=== PATIENT | female | born 1980 | race Caucasian/White ===

== ENCOUNTER 2021-05-06 15:24 | Inpatient (IN) | payer SELFPAY ==
[~2021-05-06] VITALS: Ht 167.6 cm; Wt 85.4 kg
[2021-05-06] MEDS ORDERED: SODIUM CHLORIDE 0.9% 1000ML 1,000 ML IV STA (15:36)
[2021-05-06] MEDS ORDERED: CEFTRIAXONE 1 GM VIAL IV SCH (15:45)
[2021-05-06] MEDS: DEXAMETHASONE SOD PHOS 10 MG/1 ML VIAL IV SCH (15:58)
[2021-05-06] MEDS ORDERED: CEFTRIAXONE 1 GM in SODIUM CHLORIDE 0.9% 50ML 50 ML IV ONE (16:00)
[2021-05-06 16:09] LABS: BASOPHILS % 0.1 % (0.0-1.0); HEMATOCRIT 37.8 % (34.2-44.1); HEMOGLOBIN 12.8 g/dL (12.0-16.0); LYMPHOCYTES # (AUTO) 0.5 (1.0-3.2); LYMPHOCYTES % 4.1 % (18.0-39.1); MEAN CORPUSCULAR HEMOGLOBIN 29.2 pg (28-32); MEAN CORPUSCULAR HGB CONC 33.9 g/dL (31-35); MEAN CORPUSCULAR VOLUME 86.3 fL (81-99); MONOCYTES # (AUTO) 0.1 (0.2-0.8); MONOCYTES % 1.1 % (4.4-11.3); NEUTROPHILS # (AUTO) 11.5 (2.1-6.9); PLATELET COUNT 287 x10e3/uL (140-360); RED BLOOD COUNT 4.38 x10e6/uL (3.6-5.1); RED CELL DISTRIBUTION WIDTH 12.3 % (11.7-14.4)
[2021-05-06 16:22] LABS: ALBUMIN 3.1 g/dL (3.5-5.0); ALBUMIN/GLOBULIN RATIO 0.7 (0.8-2.0); ANION GAP 24.5 mmol/L (8-16); CALCIUM 8.1 mg/dL (8.4-10.2); CREATININE, SERUM 1.18 mg/dL (0.57-1.11); MAGNESIUM 1.8 MG/DL (1.3-2.1); POTASSIUM 3.5 mmol/L (3.5-5.1)
[2021-05-06 16:39] LABS: CREATINE KINASE MB 0.6 ng/mL (0-5.0)
[2021-05-06] MEDS ORDERED: ACETAMINOPHEN 325 MG TAB PO ONE (16:45)
[2021-05-06] MEDS ORDERED: ENOXAPARIN SOD INJ 40 MG/0.4 ML SYR SC SCH (17:00)
[2021-05-06] MEDS ORDERED: ZOLPIDEM TARTRATE 5 MG TAB PO PRN (17:00)
[2021-05-06] MEDS ORDERED: SODIUM CHLORIDE 0.9% 1000ML 1,000 ML IV SCH (17:15)
[2021-05-06] MEDS: FAMOTIDINE 20 MG/2 ML VIAL IV SCH (17:25)
[2021-05-06] MEDS ORDERED: NOREPINEPHRINE 8 MG/D5W 250 ML 250 ML IV PRN (17:45)
[2021-05-06 18:00] LABS: BAND NEUTROPHILS % (MANUAL) 2 %; LYMPHOCYTES % (MANUAL) 6 % (19-48); MONOCYTES % (MANUAL) 4 % (3.4-9.0); NEUTROPHILS % (MANUAL) 88 % (40-74); PLATELET ESTIMATE ADEQUATE; RBC MORPHOLOGY COMMENT NORMAL
[2021-05-06 18:01] LABS: PLATELET MORPHOLOGY COMMENT NORMAL
[2021-05-06] MEDS ORDERED: DEXMEDETOMIDINE 200MCG/NS 50ML 50 ML IV SCH (18:15)
[2021-05-06] MEDS ORDERED: DEXMEDETOMIDINE 200MCG/NS 50ML 50 ML IV ONE (18:20)
[2021-05-06 19:00] VITALS: BP 106/57
[2021-05-06] MEDS ORDERED: IPRATROPIUM BROMIDE 0.02% 2.5 ML NEB NEB SCH (19:00)
[2021-05-06] MEDS ORDERED: ALBUTEROL SULF 0.083% NEB SOLN 3 ML NEB NEB SCH (19:00)
[2021-05-06] MEDS ORDERED: MIDAZOLAM HCL 5MG/ML 10ML VIAL 100 ML IV ONE (19:39)
[2021-05-06] MEDS ORDERED: FENTANYL 2000MCG/NS 250 250 ML ONE (19:39)
[2021-05-06 20:00] VITALS: BP 102/65
[2021-05-06] MEDS ORDERED: CISATRACURIUM BESYLATE 100 MG in SODIUM CHLORIDE 0.9% 100 ML 50 ML IV PRN (20:00)
[2021-05-06] MEDS ORDERED: REMDESIVIR 200MG/NS 100ML 200 MG in SODIUM CHLORIDE 0.9% 100 ML 100 ML IV ONE (20:00)
[2021-05-06 20:08] VITALS: BP 102/65
[2021-05-06 20:29] LABS: ABG HCO3 23 mmol/L (22-26); ABG PCO2 48 mmHg (35-45); ABG PH 7.29 (7.35-7.45); ABG PO2 41 mmHg (80-105); ABG TCO2 24
[2021-05-06 21:00] VITALS: BP 97/60
[2021-05-06] MEDS ORDERED: REMDESIVIR 200MG/NS 100ML 200 MG IV ONE (21:56)
[2021-05-06 22:00] VITALS: BP 96/69
[2021-05-06 23:00] VITALS: BP 101/60
[2021-05-06] MEDS: ROCURONIUM BROMIDE 1,250 MG in SODIUM CHLORIDE 0.9% 250ML 125 ML IV SCH (23:00)
[2021-05-07] VITALS (24 sets, daily range): BP systolic 100–122; BP diastolic 45–93
[2021-05-07] MEDS ORDERED: MIDAZOLAM HCL 5MG/ML 10ML VIAL 100 ML IV ONE (05:31)
[2021-05-07 06:17] LABS: HEMATOCRIT 33.1 % (34.2-44.1); HEMOGLOBIN 11.4 g/dL (12.0-16.0); LYMPHOCYTES # (AUTO) 0.3 (1.0-3.2); LYMPHOCYTES % 6.7 % (18.0-39.1); MEAN CORPUSCULAR HEMOGLOBIN 29.7 pg (28-32); MEAN CORPUSCULAR HGB CONC 34.4 g/dL (31-35); MEAN CORPUSCULAR VOLUME 86.2 fL (81-99); MONOCYTES # (AUTO) 0.1 (0.2-0.8); MONOCYTES % 2.3 % (4.4-11.3); NEUTROPHILS # (AUTO) 4.3 (2.1-6.9); NEUTROPHILS % 90.2 % (38.7-80.0); PLATELET COUNT 288 x10e3/uL (140-360); RED BLOOD COUNT 3.84 x10e6/uL (3.6-5.1); RED CELL DISTRIBUTION WIDTH 12.5 % (11.7-14.4)
[2021-05-07 06:41] LABS: ALANINE AMINOTRANSFERASE 39 IU/L (0-55); ALBUMIN 2.5 g/dL (3.5-5.0); ALBUMIN/GLOBULIN RATIO 0.6 (0.8-2.0); ALKALINE PHOSPHATASE 88 IU/L (40-150); ANION GAP 16.4 mmol/L (8-16); BLOOD UREA NITROGEN 14 mg/dL (7-26); BUN/CREATININE RATIO 19 (6-25); CALCIUM 7.6 mg/dL (8.4-10.2); CARBON DIOXIDE 23 mmol/L (22-29); CHLORIDE 98 mmol/L (98-107); CREATININE, SERUM 0.73 mg/dL (0.57-1.11); EST GLOMERULAR FILTRATION RATE > 60 ML/MIN (60-); GLUCOSE 228 mg/dL (74-118); POTASSIUM 3.4 mmol/L (3.5-5.1); SODIUM 134 mmol/L (136-145)
[2021-05-07] MEDS: AZITHROMYCIN 500MG/NS 250 ML 250 ML IV SCH (10:11)
[2021-05-07] MEDS: ENOXAPARIN INJ 80 MG/0.8 ML SYR SC SCH ×2 (10:11→20:50)
[2021-05-07] MEDS: DEXAMETHASONE SOD PHOS 10 MG/1 ML VIAL IV SCH (10:11)
[2021-05-07] MEDS: FAMOTIDINE 20 MG/2 ML VIAL IV SCH ×2 (10:11→19:13)
[2021-05-07] MEDS ORDERED: SODIUM CHLORIDE 0.9% 250ML 250 ML ONE (10:15)
[2021-05-07] MEDS ORDERED: POTASSIUM CHLORIDE 20MEQ/100ML 100 ML IV ONE ×2 (11:00→17:30)
[2021-05-07 12:13] LABS: ABG HCO3 24 mmol/L (22-26); ABG PCO2 37 mmHg (35-45); ABG PH 7.42 (7.35-7.45); ABG PO2 131 mmHg (80-105); ABG TCO2 25
[2021-05-07] MEDS ORDERED: WATER STERILE 10 ML VIAL ONE (13:26)
[2021-05-07] MEDS ORDERED: ETOMIDATE 2 MG/ML 10 ML INJ IV ONE (13:26)
[2021-05-07] MEDS ORDERED: MIDAZOLAM HCL 2 MG/2 ML VIAL ONE (13:26)
[2021-05-07] MEDS ORDERED: SUCCINYLCHOLINE CHLORIDE 20 MG/ML 10ML VIAL ONE (13:26)
[2021-05-07] MEDS ORDERED: VECURONIUM BROMIDE FOR INJ 20 MG VIAL ONE (13:26)
[2021-05-07] MEDS ORDERED: SODIUM CHLORIDE 0.9% 1000ML 1,000 ML ONE (13:52)
[2021-05-07] MEDS ORDERED: MIDAZOLAM HCL 50 MG in SODIUM CHLORIDE 0.9% 100 ML 90 ML IV PRN (15:45)
[2021-05-07] MEDS: FENTANYL 2000MCG/NS 250 250 ML IV SCH (15:47)
[2021-05-07] MEDS ORDERED: CEFTRIAXONE 1 GM VIAL IV SCH (16:00)
[2021-05-07] MEDS: CEFTRIAXONE 1 GM in SODIUM CHLORIDE 0.9% 50ML 50 ML IV SCH (16:18)
[2021-05-07] MEDS: MIDAZOLAM HCL 5MG/ML 10ML VIAL 100 ML IV PRN (16:40)
[2021-05-07 18:09] LABS: ABG PH 7.38 (7.35-7.45)
[2021-05-07 18:10] LABS: ABG HCO3 24 mmol/L (22-26); ABG PCO2 41 mmHg (35-45); ABG PO2 72 mmHg (80-105); ABG TCO2 25
[2021-05-07] MEDS: REMDESIVIR 100MG/NS 100ML 100 MG in SODIUM CHLORIDE 0.9% 100 ML 100 ML IV SCH (20:50)
[2021-05-07] MEDS: ROCURONIUM BROMIDE 1,250 MG in SODIUM CHLORIDE 0.9% 250ML 125 ML IV SCH (20:50)
[2021-05-08] VITALS (25 sets, daily range): BP systolic 77–111; BP diastolic 49–69
[2021-05-08 05:53] LABS: BASOPHILS % 0.2 % (0.0-1.0); HEMATOCRIT 31.7 % (34.2-44.1); HEMOGLOBIN 10.6 g/dL (12.0-16.0); LYMPHOCYTES # (AUTO) 0.5 (1.0-3.2); LYMPHOCYTES % 7.8 % (18.0-39.1); MEAN CORPUSCULAR HEMOGLOBIN 29.9 pg (28-32); MEAN CORPUSCULAR HGB CONC 33.4 g/dL (31-35); MEAN CORPUSCULAR VOLUME 89.5 fL (81-99); MONOCYTES # (AUTO) 0.2 (0.2-0.8); MONOCYTES % 3.6 % (4.4-11.3); NEUTROPHILS # (AUTO) 5.3 (2.1-6.9); NEUTROPHILS % 87.2 % (38.7-80.0); PLATELET COUNT 375 x10e3/uL (140-360); RED BLOOD COUNT 3.54 x10e6/uL (3.6-5.1)
[2021-05-08 06:17] LABS: ALANINE AMINOTRANSFERASE 32 IU/L (0-55); ALBUMIN 2.3 g/dL (3.5-5.0); ALBUMIN/GLOBULIN RATIO 0.6 (0.8-2.0); ALKALINE PHOSPHATASE 73 IU/L (40-150); ANION GAP 13.6 mmol/L (8-16); BLOOD UREA NITROGEN 17 mg/dL (7-26); BUN/CREATININE RATIO 23 (6-25); CALCIUM 7.6 mg/dL (8.4-10.2); CARBON DIOXIDE 24 mmol/L (22-29); CHLORIDE 105 mmol/L (98-107); CREATININE, SERUM 0.75 mg/dL (0.57-1.11); EST GLOMERULAR FILTRATION RATE > 60 ML/MIN (60-); GLUCOSE 205 mg/dL (74-118); POTASSIUM 3.6 mmol/L (3.5-5.1); SODIUM 139 mmol/L (136-145)
[2021-05-08] MEDS: DEXAMETHASONE SOD PHOS 10 MG/1 ML VIAL IV SCH (08:37)
[2021-05-08] MEDS: AZITHROMYCIN 500MG/NS 250 ML 250 ML IV SCH (08:37)
[2021-05-08] MEDS: FAMOTIDINE 20 MG/2 ML VIAL IV SCH ×2 (08:37→15:52)
[2021-05-08] MEDS: ENOXAPARIN INJ 80 MG/0.8 ML SYR SC SCH ×2 (08:37→21:30)
[2021-05-08] MEDS ORDERED: NOREPINEPHRINE 8 MG/D5W 250 ML 250 ML IV SCH (10:15)
[2021-05-08] MEDS: FENTANYL 2000MCG/NS 250 250 ML IV SCH (12:12)
[2021-05-08] MEDS: MIDAZOLAM HCL 5MG/ML 10ML VIAL 100 ML IV PRN (13:40)
[2021-05-08] MEDS: CEFTRIAXONE 1 GM in SODIUM CHLORIDE 0.9% 50ML 50 ML IV SCH (15:52)
[2021-05-08 16:19] LABS: ABG HCO3 25 mmol/L (22-26); ABG PCO2 43 mmHg (35-45); ABG PH 7.37 (7.35-7.45); ABG PO2 71 mmHg (80-105); ABG TCO2 26
[2021-05-08] MEDS: ROCURONIUM BROMIDE 1,250 MG in SODIUM CHLORIDE 0.9% 250ML 125 ML IV SCH (20:45)
[2021-05-08] MEDS: REMDESIVIR 100MG/NS 100ML 100 MG in SODIUM CHLORIDE 0.9% 100 ML 100 ML IV SCH (21:30)
[2021-05-09] VITALS (28 sets, daily range): BP systolic 95–158; BP diastolic 50–90
[2021-05-09] MEDS: MIDAZOLAM HCL 5MG/ML 10ML VIAL 100 ML IV PRN ×2 (00:15→10:38)
[2021-05-09] MEDS ORDERED: HEPARIN SOD/SOD CHLORIDE 1,000 ML IV PRN (02:15)
[2021-05-09] MEDS ORDERED: NOREPINEPHRINE 8 MG/D5W 250 ML 250 ML IV PRN (02:15)
[2021-05-09] MEDS ORDERED: ROCURONIUM BROMIDE 1,250 MG in SODIUM CHLORIDE 0.9% 250ML 125 ML IV PRN (02:15)
[2021-05-09] MEDS ORDERED: HEPARIN SOD/SOD CHLORIDE 1,000 ML ONE (05:27)
[2021-05-09 05:42] LABS: BASOPHILS % 0.2 % (0.0-1.0); HEMATOCRIT 31.6 % (34.2-44.1); HEMOGLOBIN 10.4 g/dL (12.0-16.0); LYMPHOCYTES # (AUTO) 0.4 (1.0-3.2); MEAN CORPUSCULAR HEMOGLOBIN 29.5 pg (28-32); MEAN CORPUSCULAR HGB CONC 32.9 g/dL (31-35); MEAN CORPUSCULAR VOLUME 89.5 fL (81-99); MONOCYTES # (AUTO) 0.2 (0.2-0.8); MONOCYTES % 3.4 % (4.4-11.3); NEUTROPHILS # (AUTO) 5.1 (2.1-6.9); NEUTROPHILS % 87.9 % (38.7-80.0); PLATELET COUNT 465 x10e3/uL (140-360); RED BLOOD COUNT 3.53 x10e6/uL (3.6-5.1); RED CELL DISTRIBUTION WIDTH 13.1 % (11.7-14.4)
[2021-05-09] MEDS: METOCLOPRAMIDE HCL 10 MG/2ML VIAL IV SCH ×4 (06:00→23:25)
[2021-05-09 06:17] LABS: MAGNESIUM 2.4 MG/DL (1.3-2.1); PHOSPHORUS 1.9 MG/DL (2.3-4.7)
[2021-05-09 06:19] LABS: INR 0.96; PROTHROMBIN TIME 13.4 seconds (11.9-14.5)
[2021-05-09 06:20] LABS: PARTIAL THROMBOPLASTIN TIME 27.5 seconds (23.8-35.5)
[2021-05-09 06:27] LABS: ALANINE AMINOTRANSFERASE 32 IU/L (0-55); ALBUMIN 2.1 g/dL (3.5-5.0); ALBUMIN/GLOBULIN RATIO 0.6 (0.8-2.0); ALKALINE PHOSPHATASE 77 IU/L (40-150); ANION GAP 12.6 mmol/L (8-16); BLOOD UREA NITROGEN 20 mg/dL (7-26); BUN/CREATININE RATIO 29 (6-25); CALCIUM 7.7 mg/dL (8.4-10.2); CARBON DIOXIDE 29 mmol/L (22-29); CHLORIDE 106 mmol/L (98-107); CREATININE, SERUM 0.69 mg/dL (0.57-1.11); EST GLOMERULAR FILTRATION RATE > 60 ML/MIN (60-); GLUCOSE 338 mg/dL (74-118); POTASSIUM 3.6 mmol/L (3.5-5.1); SODIUM 144 mmol/L (136-145)
[2021-05-09] MEDS: AZITHROMYCIN 500MG/NS 250 ML 250 ML IV SCH (08:06)
[2021-05-09] MEDS: ENOXAPARIN INJ 80 MG/0.8 ML SYR SC SCH ×2 (08:06→20:48)
[2021-05-09] MEDS: GENTAMICIN SULFATE 0.3% OPTH OINT 3.5GM TUBE OD SCH ×2 (08:06→16:08)
[2021-05-09] MEDS: ZINC SULFATE 220 MG CAP PO SCH (08:06)
[2021-05-09] MEDS: DEXAMETHASONE SOD PHOS 10 MG/1 ML VIAL IV SCH (08:06)
[2021-05-09] MEDS: FAMOTIDINE 20 MG/2 ML VIAL IV SCH ×2 (08:06→16:08)
[2021-05-09] MEDS: ASCORBIC ACID 500 MG TAB PO SCH ×2 (08:06→16:08)
[2021-05-09] MEDS: EYE LUBRICANT OPTH OINT 3.5GM TUBE OP SCH (08:06)
[2021-05-09] MEDS: CHOLECALCIFEROL 400 UNIT TAB PO SCH (08:09)
[2021-05-09 08:20] LABS: ABG HCO3 33 mmol/L (22-26); ABG PCO2 48 mmHg (35-45); ABG PH 7.45 (7.35-7.45); ABG PO2 75 mmHg (80-105); ABG TCO2 35
[2021-05-09] MEDS: CEFTRIAXONE 1 GM in SODIUM CHLORIDE 0.9% 50ML 50 ML IV SCH (15:14)
[2021-05-09] MEDS: REMDESIVIR 100MG/NS 100ML 100 MG in SODIUM CHLORIDE 0.9% 100 ML 100 ML IV SCH (20:48)
[2021-05-09] MEDS: ACETAMINOPHEN 325 MG TAB NG PRN (23:25)
[2021-05-10] VITALS (24 sets, daily range): BP systolic 102–176; BP diastolic 50–98
[2021-05-10 05:07] LABS: BASOPHILS % 0.2 % (0.0-1.0); EOSINOPHILS % 0.3 % (0.0-6.0); HEMOGLOBIN 11.1 g/dL (12.0-16.0); LYMPHOCYTES # (AUTO) 0.6 (1.0-3.2); LYMPHOCYTES % 8.4 % (18.0-39.1); MEAN CORPUSCULAR HEMOGLOBIN 29.9 pg (28-32); MEAN CORPUSCULAR HGB CONC 32.6 g/dL (31-35); MEAN CORPUSCULAR VOLUME 91.6 fL (81-99); MONOCYTES # (AUTO) 0.2 (0.2-0.8); MONOCYTES % 3.7 % (4.4-11.3); NEUTROPHILS # (AUTO) 5.6 (2.1-6.9); NEUTROPHILS % 85.3 % (38.7-80.0); PLATELET COUNT 542 x10e3/uL (140-360); RED BLOOD COUNT 3.71 x10e6/uL (3.6-5.1); RED CELL DISTRIBUTION WIDTH 13.1 % (11.7-14.4)
[2021-05-10] MEDS: METOCLOPRAMIDE HCL 10 MG/2ML VIAL IV SCH ×3 (05:10→17:12)
[2021-05-10] MEDS: ACETAMINOPHEN 325 MG TAB NG PRN (05:25)
[2021-05-10 05:33] LABS: ALANINE AMINOTRANSFERASE 82 IU/L (0-55); ALBUMIN 2.2 g/dL (3.5-5.0); ALBUMIN/GLOBULIN RATIO 0.6 (0.8-2.0); ALKALINE PHOSPHATASE 91 IU/L (40-150); ANION GAP 14.9 mmol/L (8-16); BLOOD UREA NITROGEN 22 mg/dL (7-26); BUN/CREATININE RATIO 33 (6-25); CALCIUM 8.2 mg/dL (8.4-10.2); CARBON DIOXIDE 30 mmol/L (22-29); CHLORIDE 107 mmol/L (98-107); CREATININE, SERUM 0.66 mg/dL (0.57-1.11); EST GLOMERULAR FILTRATION RATE > 60 ML/MIN (60-); GLUCOSE 239 mg/dL (74-118); POTASSIUM 3.9 mmol/L (3.5-5.1); SODIUM 148 mmol/L (136-145)
[2021-05-10] MEDS: FAMOTIDINE 20 MG/2 ML VIAL IV SCH ×2 (08:14→17:12)
[2021-05-10] MEDS: CHOLECALCIFEROL 400 UNIT TAB PO SCH (08:14)
[2021-05-10] MEDS: ASCORBIC ACID 500 MG TAB PO SCH ×2 (08:14→17:12)
[2021-05-10] MEDS: DEXAMETHASONE SOD PHOS 10 MG/1 ML VIAL IV SCH (08:14)
[2021-05-10] MEDS: ZINC SULFATE 220 MG CAP PO SCH (08:14)
[2021-05-10] MEDS: ENOXAPARIN INJ 80 MG/0.8 ML SYR SC SCH ×2 (08:14→21:00)
[2021-05-10] MEDS ORDERED: SODIUM CHLORIDE 0.9% 500ML 500 ML ONE (08:30)
[2021-05-10] MEDS ORDERED: FUROSEMIDE INJ 10 MG/ML 4 ML VIAL IV ONE (08:35)
[2021-05-10 08:45] LABS: ABG HCO3 34 mmol/L (22-26); ABG PCO2 49 mmHg (35-45); ABG PH 7.45 (7.35-7.45); ABG PO2 68 mmHg (80-105); ABG TCO2 36
[2021-05-10] MEDS ORDERED: DEXTROSE 50% SYRINGE 50 ML IV PRN (08:45)
[2021-05-10] MEDS: GENTAMICIN SULFATE 0.3% OPTH OINT 3.5GM TUBE OD SCH ×2 (09:10→17:12)
[2021-05-10] MEDS: EYE LUBRICANT OPTH OINT 3.5GM TUBE OP SCH (09:10)
[2021-05-10] MEDS ORDERED: SODIUM CHLORIDE 0.45% 500 ML IV ONE (09:30)
[2021-05-10] MEDS ORDERED: ACETAMINOPHEN 1000 MG/100 ML IV ONE (09:35)
[2021-05-10] MEDS: PIPERACILLIN/TAZOBACTAM 3.375 GM in SODIUM CHLORIDE 0.9% 50ML 50 ML IV SCH ×3 (09:55→21:00)
[2021-05-10] MEDS: MIDAZOLAM HCL 5MG/ML 10ML VIAL 100 ML IV PRN ×2 (12:13→17:13)
[2021-05-10] MEDS: INSULIN REGULAR, HUMAN 100 UNIT/1 ML SQ SCH ×3 (12:15→22:25)
[2021-05-10] MEDS ORDERED: VECURONIUM BROMIDE FOR INJ 20 MG VIAL IV STA (14:44)
[2021-05-10] MEDS: ROCURONIUM BROMIDE 1,250 MG in SODIUM CHLORIDE 0.9% 250ML 125 ML IV SCH (15:29)
[2021-05-10] MEDS: FENTANYL 2000MCG/NS 250 250 ML IV PRN (15:30)
[2021-05-10 16:29] LABS: ABG HCO3 32 mmol/L (22-26); ABG PCO2 53 mmHg (35-45); ABG PH 7.38 (7.35-7.45); ABG PO2 70 mmHg (80-105); ABG TCO2 33
[2021-05-10] MEDS: REMDESIVIR 100MG/NS 100ML 100 MG in SODIUM CHLORIDE 0.9% 100 ML 100 ML IV SCH (21:00)
[2021-05-11] VITALS (25 sets, daily range): BP systolic 97–145; BP diastolic 57–99
[2021-05-11] MEDS: METOCLOPRAMIDE HCL 10 MG/2ML VIAL IV SCH ×5 (00:46→23:15)
[2021-05-11] MEDS: PIPERACILLIN/TAZOBACTAM 3.375 GM in SODIUM CHLORIDE 0.9% 50ML 50 ML IV SCH ×4 (03:00→20:46)
[2021-05-11 05:58] LABS: BASOPHILS % 0.3 % (0.0-1.0); EOSINOPHILS # (AUTO) 0.1 (0.0-0.4); EOSINOPHILS % 1.4 % (0.0-6.0); HEMATOCRIT 32.3 % (34.2-44.1); HEMOGLOBIN 10.3 g/dL (12.0-16.0); LYMPHOCYTES # (AUTO) 0.6 (1.0-3.2); MEAN CORPUSCULAR HEMOGLOBIN 30.6 pg (28-32); MEAN CORPUSCULAR HGB CONC 31.9 g/dL (31-35); MEAN CORPUSCULAR VOLUME 95.8 fL (81-99); MONOCYTES # (AUTO) 0.2 (0.2-0.8); MONOCYTES % 2.9 % (4.4-11.3); NEUTROPHILS # (AUTO) 5.4 (2.1-6.9); NEUTROPHILS % 82.1 % (38.7-80.0); PLATELET COUNT 464 x10e3/uL (140-360); RED BLOOD COUNT 3.37 x10e6/uL (3.6-5.1); RED CELL DISTRIBUTION WIDTH 13.4 % (11.7-14.4)
[2021-05-11 06:07] LABS: INR 1.08; PROTHROMBIN TIME 14.6 seconds (11.9-14.5)
[2021-05-11 06:08] LABS: PARTIAL THROMBOPLASTIN TIME 30.4 seconds (23.8-35.5)
[2021-05-11 06:18] LABS: ALANINE AMINOTRANSFERASE 80 IU/L (0-55); ALBUMIN/GLOBULIN RATIO 0.6 (0.8-2.0); ALKALINE PHOSPHATASE 82 IU/L (40-150); ANION GAP 11.9 mmol/L (8-16); BLOOD UREA NITROGEN 18 mg/dL (7-26); BUN/CREATININE RATIO 30 (6-25); CALCIUM 8.3 mg/dL (8.4-10.2); CARBON DIOXIDE 32 mmol/L (22-29); CHLORIDE 108 mmol/L (98-107); CREATININE, SERUM 0.61 mg/dL (0.57-1.11); EST GLOMERULAR FILTRATION RATE > 60 ML/MIN (60-); GLUCOSE 233 mg/dL (74-118); MAGNESIUM 2.1 MG/DL (1.3-2.1); PHOSPHORUS 2.4 MG/DL (2.3-4.7); POTASSIUM 3.9 mmol/L (3.5-5.1); SODIUM 148 mmol/L (136-145)
[2021-05-11] MEDS: MIDAZOLAM HCL 5MG/ML 10ML VIAL 100 ML IV PRN ×3 (06:19→20:47)
[2021-05-11 07:17] LABS: ABG HCO3 33 mmol/L (22-26); ABG PCO2 55 mmHg (35-45); ABG PH 7.38 (7.35-7.45); ABG PO2 80 mmHg (80-105); ABG TCO2 35
[2021-05-11] MEDS: FAMOTIDINE 20 MG/2 ML VIAL IV SCH ×2 (08:10→16:54)
[2021-05-11] MEDS: DEXAMETHASONE SOD PHOS 10 MG/1 ML VIAL IV SCH (08:10)
[2021-05-11] MEDS: CHOLECALCIFEROL 400 UNIT TAB PO SCH (08:11)
[2021-05-11] MEDS: GENTAMICIN SULFATE 0.3% OPTH OINT 3.5GM TUBE OD SCH ×2 (08:11→16:54)
[2021-05-11] MEDS: ZINC SULFATE 220 MG CAP PO SCH (08:11)
[2021-05-11] MEDS: ASCORBIC ACID 500 MG TAB PO SCH ×2 (08:11→16:54)
[2021-05-11] MEDS: EYE LUBRICANT OPTH OINT 3.5GM TUBE OP SCH (08:11)
[2021-05-11] MEDS: ENOXAPARIN INJ 80 MG/0.8 ML SYR SC SCH ×2 (08:11→20:46)
[2021-05-11] MEDS: ROCURONIUM BROMIDE 1,250 MG in SODIUM CHLORIDE 0.9% 250ML 125 ML IV SCH (08:21)
[2021-05-11] MEDS: FENTANYL 2000MCG/NS 250 250 ML IV PRN ×2 (08:22→22:59)
[2021-05-11] MEDS ORDERED: ACETAMINOPHEN 1000 MG/100 ML IV STA (08:23)
[2021-05-11] MEDS: ACETAMINOPHEN 325 MG TAB NG PRN (08:25)
[2021-05-11] MEDS: INSULIN REGULAR, HUMAN 100 UNIT/1 ML SQ SCH ×4 (08:56→20:48)
[2021-05-11] MEDS ORDERED: TOCILIZUMAB IV ONE (10:00)
[2021-05-11] MEDS ORDERED: SODIUM CHLORIDE 0.9% IV ONE (10:00)
[2021-05-11 15:37] LABS: ABG HCO3 32 mmol/L (22-26); ABG PCO2 53 mmHg (35-45); ABG PO2 67 mmHg (80-105); ABG TCO2 34
[2021-05-11] MEDS ORDERED: INSULIN GLARGINE 100 UNITS/ML VIAL SQ SCH (21:00)
[2021-05-12] VITALS (26 sets, daily range): BP systolic 95–171; BP diastolic 56–96
[2021-05-12] MEDS: PIPERACILLIN/TAZOBACTAM 3.375 GM in SODIUM CHLORIDE 0.9% 50ML 50 ML IV SCH ×4 (02:37→22:00)
[2021-05-12 04:34] LABS: BASOPHILS % 0.2 % (0.0-1.0); EOSINOPHILS # (AUTO) 0.1 (0.0-0.4); EOSINOPHILS % 1.8 % (0.0-6.0); HEMATOCRIT 33.8 % (34.2-44.1); HEMOGLOBIN 10.6 g/dL (12.0-16.0); LYMPHOCYTES # (AUTO) 0.5 (1.0-3.2); LYMPHOCYTES % 9.1 % (18.0-39.1); MEAN CORPUSCULAR HEMOGLOBIN 29.4 pg (28-32); MEAN CORPUSCULAR HGB CONC 31.4 g/dL (31-35); MEAN CORPUSCULAR VOLUME 93.6 fL (81-99); MONOCYTES # (AUTO) 0.2 (0.2-0.8); MONOCYTES % 3.8 % (4.4-11.3); NEUTROPHILS # (AUTO) 4.3 (2.1-6.9); NEUTROPHILS % 78.5 % (38.7-80.0); PLATELET COUNT 527 x10e3/uL (140-360); RED BLOOD COUNT 3.61 x10e6/uL (3.6-5.1); RED CELL DISTRIBUTION WIDTH 12.7 % (11.7-14.4)
[2021-05-12 04:55] LABS: ALANINE AMINOTRANSFERASE 61 IU/L (0-55); ALBUMIN 1.9 g/dL (3.5-5.0); ALBUMIN/GLOBULIN RATIO 0.5 (0.8-2.0); ALKALINE PHOSPHATASE 75 IU/L (40-150); ANION GAP 14.4 mmol/L (8-16); BLOOD UREA NITROGEN 19 mg/dL (7-26); BUN/CREATININE RATIO 30 (6-25); CALCIUM 8.2 mg/dL (8.4-10.2); CARBON DIOXIDE 30 mmol/L (22-29); CHLORIDE 108 mmol/L (98-107); CREATININE, SERUM 0.64 mg/dL (0.57-1.11); EST GLOMERULAR FILTRATION RATE > 60 ML/MIN (60-); GLUCOSE 256 mg/dL (74-118); POTASSIUM 4.4 mmol/L (3.5-5.1); SODIUM 148 mmol/L (136-145)
[2021-05-12] MEDS: METOCLOPRAMIDE HCL 10 MG/2ML VIAL IV SCH ×3 (05:42→17:08)
[2021-05-12 06:56] LABS: EOSINOPHILS % (MANUAL) 4 % (0-7); LYMPHOCYTES % (MANUAL) 6 % (19-48); METAMYELOCYTES % (MANUAL) 2 % (0-0); MONOCYTES % (MANUAL) 1 % (3.4-9.0); MYELOCYTES % (MANUAL) 1 % (0-0); NEUTROPHILS % (MANUAL) 82 % (40-74)
[2021-05-12] MEDS: ASCORBIC ACID 500 MG TAB PO SCH ×2 (08:10→17:08)
[2021-05-12] MEDS: FAMOTIDINE 20 MG/2 ML VIAL IV SCH ×2 (08:10→17:08)
[2021-05-12] MEDS: EYE LUBRICANT OPTH OINT 3.5GM TUBE OP SCH (08:10)
[2021-05-12] MEDS: CHOLECALCIFEROL 400 UNIT TAB PO SCH (08:10)
[2021-05-12] MEDS: GENTAMICIN SULFATE 0.3% OPTH OINT 3.5GM TUBE OD SCH ×2 (08:10→17:08)
[2021-05-12] MEDS: DEXAMETHASONE SOD PHOS 10 MG/1 ML VIAL IV SCH (08:10)
[2021-05-12] MEDS: ZINC SULFATE 220 MG CAP PO SCH (08:10)
[2021-05-12] MEDS: ENOXAPARIN INJ 80 MG/0.8 ML SYR SC SCH ×2 (08:10→22:00)
[2021-05-12] MEDS: INSULIN REGULAR, HUMAN 100 UNIT/1 ML SQ SCH ×4 (08:16→22:00)
[2021-05-12 09:37] LABS: ABG HCO3 34 mmol/L (22-26); ABG PCO2 55 mmHg (35-45); ABG PO2 62 mmHg (80-105); ABG TCO2 36
[2021-05-12] MEDS: FENTANYL 2000MCG/NS 250 250 ML IV PRN ×2 (10:32→23:15)
[2021-05-12] MEDS: ACETAMINOPHEN 325 MG TAB NG PRN ×2 (10:50→17:09)
[2021-05-12] MEDS: ROCURONIUM BROMIDE 1,250 MG in SODIUM CHLORIDE 0.9% 250ML 125 ML IV SCH (15:15)
[2021-05-12] MEDS: MIDAZOLAM HCL 5MG/ML 10ML VIAL 100 ML IV PRN ×2 (16:08→23:16)
[2021-05-12] MEDS ORDERED: INSULIN GLARGINE 100 UNITS/ML VIAL SQ SCH (21:00)
[2021-05-13] VITALS (26 sets, daily range): BP systolic 91–144; BP diastolic 54–80
[2021-05-13] MEDS: METOCLOPRAMIDE HCL 10 MG/2ML VIAL IV SCH ×5 (00:26→23:52)
[2021-05-13] MEDS: PIPERACILLIN/TAZOBACTAM 3.375 GM in SODIUM CHLORIDE 0.9% 50ML 50 ML IV SCH ×4 (03:40→21:15)
[2021-05-13] MEDS: MIDAZOLAM HCL 5MG/ML 10ML VIAL 100 ML IV PRN ×4 (05:30→21:15)
[2021-05-13 06:10] LABS: BASOPHILS % 0.2 % (0.0-1.0); EOSINOPHILS # (AUTO) 0.3 (0.0-0.4); EOSINOPHILS % 5.7 % (0.0-6.0); HEMATOCRIT 35.6 % (34.2-44.1); LYMPHOCYTES # (AUTO) 0.6 (1.0-3.2); LYMPHOCYTES % 10.8 % (18.0-39.1); MEAN CORPUSCULAR HEMOGLOBIN 29.1 pg (28-32); MEAN CORPUSCULAR HGB CONC 30.9 g/dL (31-35); MEAN CORPUSCULAR VOLUME 94.2 fL (81-99); MONOCYTES # (AUTO) 0.3 (0.2-0.8); MONOCYTES % 4.3 % (4.4-11.3); NEUTROPHILS # (AUTO) 4.2 (2.1-6.9); NEUTROPHILS % 72.1 % (38.7-80.0); PLATELET COUNT 633 x10e3/uL (140-360); RED BLOOD COUNT 3.78 x10e6/uL (3.6-5.1); RED CELL DISTRIBUTION WIDTH 12.6 % (11.7-14.4)
[2021-05-13] MEDS: ACETAMINOPHEN 325 MG TAB NG PRN (06:10)
[2021-05-13 06:19] LABS: INR 0.96; PROTHROMBIN TIME 13.4 seconds (11.9-14.5)
[2021-05-13 06:20] LABS: PARTIAL THROMBOPLASTIN TIME 29.6 seconds (23.8-35.5)
[2021-05-13] MEDS: INSULIN REGULAR, HUMAN 100 UNIT/1 ML SQ SCH ×3 (06:32→18:21)
[2021-05-13 06:43] LABS: ALANINE AMINOTRANSFERASE 65 IU/L (0-55); ALBUMIN 2.2 g/dL (3.5-5.0); ALBUMIN/GLOBULIN RATIO 0.6 (0.8-2.0); ALKALINE PHOSPHATASE 80 IU/L (40-150); ANION GAP 11.5 mmol/L (8-16); BLOOD UREA NITROGEN 20 mg/dL (7-26); BUN/CREATININE RATIO 32 (6-25); CALCIUM 8.2 mg/dL (8.4-10.2); CARBON DIOXIDE 32 mmol/L (22-29); CHLORIDE 105 mmol/L (98-107); CREATININE, SERUM 0.62 mg/dL (0.57-1.11); EST GLOMERULAR FILTRATION RATE > 60 ML/MIN (60-); GLUCOSE 242 mg/dL (74-118); MAGNESIUM 2.2 MG/DL (1.3-2.1); PHOSPHORUS 3.4 MG/DL (2.3-4.7); POTASSIUM 4.5 mmol/L (3.5-5.1); SODIUM 144 mmol/L (136-145)
[2021-05-13] MEDS: ROCURONIUM BROMIDE 1,250 MG in SODIUM CHLORIDE 0.9% 250ML 125 ML IV SCH (08:09)
[2021-05-13] MEDS: ASCORBIC ACID 500 MG TAB PO SCH ×2 (08:37→16:17)
[2021-05-13] MEDS: GENTAMICIN SULFATE 0.3% OPTH OINT 3.5GM TUBE OD SCH ×2 (08:37→16:17)
[2021-05-13] MEDS: FAMOTIDINE 20 MG/2 ML VIAL IV SCH ×2 (08:37→16:17)
[2021-05-13] MEDS: EYE LUBRICANT OPTH OINT 3.5GM TUBE OP SCH (08:37)
[2021-05-13] MEDS: ZINC SULFATE 220 MG CAP PO SCH (08:37)
[2021-05-13] MEDS: CHOLECALCIFEROL 400 UNIT TAB PO SCH (08:37)
[2021-05-13] MEDS: ENOXAPARIN INJ 80 MG/0.8 ML SYR SC SCH ×2 (08:37→22:15)
[2021-05-13 08:54] LABS: ABG PCO2 65 mmHg (35-45); ABG PH 7.35 (7.35-7.45)
[2021-05-13 08:55] LABS: ABG HCO3 36 mmol/L (22-26); ABG PO2 74 mmHg (80-105); ABG TCO2 38
[2021-05-13] MEDS: FUROSEMIDE INJ 10 MG/ML 4 ML VIAL IV SCH ×2 (10:23→21:15)
[2021-05-13] MEDS ORDERED: ACETAZOLAMIDE 500 MG CAP PO SCH (11:00)
[2021-05-13 12:51] LABS: BAND NEUTROPHILS % (MANUAL) 4 %; EOSINOPHILS % (MANUAL) 4 % (0-7); LYMPHOCYTES % (MANUAL) 8 % (19-48); MONOCYTES % (MANUAL) 3 % (3.4-9.0); NEUTROPHILS % (MANUAL) 81 % (40-74)
[2021-05-13] MEDS: FENTANYL 2000MCG/NS 250 250 ML IV PRN ×2 (13:59→21:30)
[2021-05-13 16:22] LABS: ABG HCO3 36 mmol/L (22-26); ABG PCO2 67 mmHg (35-45); ABG PH 7.34 (7.35-7.45); ABG PO2 67 mmHg (80-105); ABG TCO2 38
[2021-05-13] MEDS ORDERED: ACETAZOLAMIDE 250 MG TAB ONE (20:49)
[2021-05-13] MEDS: INSULIN GLARGINE 100 UNITS/ML VIAL SQ SCH (21:15)
[2021-05-13] MEDS: ACETAZOLAMIDE 250 MG TAB PO SCH (22:00)
[2021-05-14] VITALS (27 sets, daily range): BP systolic 98–171; BP diastolic 60–88
[2021-05-14] MEDS: INSULIN REGULAR, HUMAN 100 UNIT/1 ML SQ SCH ×5 (00:35→23:59)
[2021-05-14] MEDS: MIDAZOLAM HCL 5MG/ML 10ML VIAL 100 ML IV PRN ×5 (02:18→22:50)
[2021-05-14] MEDS: PIPERACILLIN/TAZOBACTAM 3.375 GM in SODIUM CHLORIDE 0.9% 50ML 50 ML IV SCH ×4 (03:35→22:00)
[2021-05-14] MEDS: ACETAMINOPHEN 325 MG TAB NG PRN ×3 (03:57→20:26)
[2021-05-14] MEDS: FENTANYL 2000MCG/NS 250 250 ML IV PRN ×3 (04:28→17:48)
[2021-05-14] MEDS: METOCLOPRAMIDE HCL 10 MG/2ML VIAL IV SCH ×4 (05:40→23:59)
[2021-05-14 06:19] LABS: ABG PH 7.27 (7.35-7.45)
[2021-05-14 06:20] LABS: ABG HCO3 34 mmol/L (22-26); ABG PCO2 74 mmHg (35-45); ABG PO2 63 mmHg (80-105); ABG TCO2 36
[2021-05-14 06:35] LABS: BASOPHILS # (AUTO) 0.1 (0.0-0.1); BASOPHILS % 0.7 % (0.0-1.0); EOSINOPHILS # (AUTO) 0.6 (0.0-0.4); EOSINOPHILS % 6.8 % (0.0-6.0); HEMATOCRIT 39.3 % (34.2-44.1); LYMPHOCYTES # (AUTO) 1.3 (1.0-3.2); LYMPHOCYTES % 15.1 % (18.0-39.1); MEAN CORPUSCULAR HEMOGLOBIN 29.3 pg (28-32); MEAN CORPUSCULAR HGB CONC 30.5 g/dL (31-35); MEAN CORPUSCULAR VOLUME 95.9 fL (81-99); MONOCYTES # (AUTO) 0.3 (0.2-0.8); MONOCYTES % 3.8 % (4.4-11.3); NEUTROPHILS # (AUTO) 5.9 (2.1-6.9); NEUTROPHILS % 68.3 % (38.7-80.0); PLATELET COUNT 687 x10e3/uL (140-360); RED CELL DISTRIBUTION WIDTH 12.6 % (11.7-14.4)
[2021-05-14 07:05] LABS: ALANINE AMINOTRANSFERASE 105 IU/L (0-55); ALBUMIN 2.5 g/dL (3.5-5.0); ALBUMIN/GLOBULIN RATIO 0.7 (0.8-2.0); ALKALINE PHOSPHATASE 89 IU/L (40-150); ANION GAP 14.8 mmol/L (8-16); BLOOD UREA NITROGEN 21 mg/dL (7-26); BUN/CREATININE RATIO 32 (6-25); CALCIUM 8.3 mg/dL (8.4-10.2); CARBON DIOXIDE 32 mmol/L (22-29); CHLORIDE 101 mmol/L (98-107); CREATININE, SERUM 0.66 mg/dL (0.57-1.11); EST GLOMERULAR FILTRATION RATE > 60 ML/MIN (60-); GLUCOSE 164 mg/dL (74-118); POTASSIUM 3.8 mmol/L (3.5-5.1); SODIUM 144 mmol/L (136-145)
[2021-05-14] MEDS: FAMOTIDINE 20 MG/2 ML VIAL IV SCH ×2 (08:28→17:47)
[2021-05-14] MEDS: FUROSEMIDE INJ 10 MG/ML 4 ML VIAL IV SCH (08:28)
[2021-05-14] MEDS: EYE LUBRICANT OPTH OINT 3.5GM TUBE OP SCH (08:29)
[2021-05-14] MEDS: CHOLECALCIFEROL 400 UNIT TAB PO SCH (08:29)
[2021-05-14] MEDS: ASCORBIC ACID 500 MG TAB PO SCH ×2 (08:29→17:48)
[2021-05-14] MEDS: GENTAMICIN SULFATE 0.3% OPTH OINT 3.5GM TUBE OD SCH ×2 (08:29→17:47)
[2021-05-14] MEDS: ENOXAPARIN INJ 80 MG/0.8 ML SYR SC SCH ×2 (08:29→22:00)
[2021-05-14] MEDS: ACETAZOLAMIDE 250 MG TAB PO SCH (08:29)
[2021-05-14] MEDS: ZINC SULFATE 220 MG CAP PO SCH (08:29)
[2021-05-14 09:21] LABS: BAND NEUTROPHILS % (MANUAL) 5 %; EOSINOPHILS % (MANUAL) 5 % (0-7); LYMPHOCYTES % (MANUAL) 14 % (19-48); MONOCYTES % (MANUAL) 2 % (3.4-9.0); NEUTROPHILS % (MANUAL) 74 % (40-74)
[2021-05-14] MEDS: ROCURONIUM BROMIDE 1,250 MG in SODIUM CHLORIDE 0.9% 250ML 125 ML IV SCH (10:28)
[2021-05-14] MEDS ORDERED: BISACODYL 10 MG SUPP PR NR (15:15)
[2021-05-14 15:38] LABS: ABG HCO3 34 mmol/L (22-26); ABG PCO2 62 mmHg (35-45); ABG PH 7.34 (7.35-7.45); ABG PO2 75 mmHg (80-105); ABG TCO2 36
[2021-05-14] MEDS: INSULIN GLARGINE 100 UNITS/ML VIAL SQ SCH (21:00)
[2021-05-15] VITALS (25 sets, daily range): BP systolic 92–194; BP diastolic 58–97
[2021-05-15] MEDS: FENTANYL 2000MCG/NS 250 250 ML IV PRN ×3 (01:57→15:49)
[2021-05-15] MEDS: PIPERACILLIN/TAZOBACTAM 3.375 GM in SODIUM CHLORIDE 0.9% 50ML 50 ML IV SCH ×2 (03:55→08:35)
[2021-05-15] MEDS: MIDAZOLAM HCL 5MG/ML 10ML VIAL 100 ML IV PRN ×3 (03:55→14:49)
[2021-05-15] MEDS: METOCLOPRAMIDE HCL 10 MG/2ML VIAL IV SCH ×3 (05:13→17:06)
[2021-05-15] MEDS: ACETAMINOPHEN 325 MG TAB NG PRN (05:13)
[2021-05-15 05:22] LABS: BASOPHILS # (AUTO) 0.1 (0.0-0.1); BASOPHILS % 0.6 % (0.0-1.0); EOSINOPHILS # (AUTO) 0.4 (0.0-0.4); EOSINOPHILS % 3.8 % (0.0-6.0); HEMATOCRIT 34.4 % (34.2-44.1); HEMOGLOBIN 10.9 g/dL (12.0-16.0); LYMPHOCYTES # (AUTO) 1.4 (1.0-3.2); LYMPHOCYTES % 13.3 % (18.0-39.1); MEAN CORPUSCULAR HEMOGLOBIN 29.7 pg (28-32); MEAN CORPUSCULAR HGB CONC 31.7 g/dL (31-35); MEAN CORPUSCULAR VOLUME 93.7 fL (81-99); MONOCYTES # (AUTO) 0.3 (0.2-0.8); NEUTROPHILS # (AUTO) 8.3 (2.1-6.9); NEUTROPHILS % 76.1 % (38.7-80.0); PLATELET COUNT 537 x10e3/uL (140-360); RED BLOOD COUNT 3.67 x10e6/uL (3.6-5.1); RED CELL DISTRIBUTION WIDTH 12.5 % (11.7-14.4)
[2021-05-15 05:48] LABS: INR 1.02; PARTIAL THROMBOPLASTIN TIME 29.1 seconds (23.8-35.5)
[2021-05-15 05:58] LABS: ALANINE AMINOTRANSFERASE 105 IU/L (0-55); ALBUMIN 2.4 g/dL (3.5-5.0); ALBUMIN/GLOBULIN RATIO 0.7 (0.8-2.0); ALKALINE PHOSPHATASE 82 IU/L (40-150); ANION GAP 11.9 mmol/L (8-16); BLOOD UREA NITROGEN 18 mg/dL (7-26); BUN/CREATININE RATIO 30 (6-25); CARBON DIOXIDE 29 mmol/L (22-29); CHLORIDE 104 mmol/L (98-107); CREATININE, SERUM 0.61 mg/dL (0.57-1.11); EST GLOMERULAR FILTRATION RATE > 60 ML/MIN (60-); GLUCOSE 119 mg/dL (74-118); MAGNESIUM 2.1 MG/DL (1.3-2.1); PHOSPHORUS 2.9 MG/DL (2.3-4.7); POTASSIUM 3.9 mmol/L (3.5-5.1); SODIUM 141 mmol/L (136-145)
[2021-05-15] MEDS: INSULIN REGULAR, HUMAN 100 UNIT/1 ML SQ SCH ×3 (06:00→18:04)
[2021-05-15 07:44] LABS: ABG HCO3 31 mmol/L (22-26); ABG PCO2 58 mmHg (35-45); ABG PH 7.33 (7.35-7.45); ABG PO2 118 mmHg (80-105); ABG TCO2 32
[2021-05-15] MEDS: ROCURONIUM BROMIDE 1,250 MG in SODIUM CHLORIDE 0.9% 250ML 125 ML IV SCH (08:28)
[2021-05-15] MEDS: FAMOTIDINE 20 MG/2 ML VIAL IV SCH ×2 (08:35→16:42)
[2021-05-15] MEDS: GENTAMICIN SULFATE 0.3% OPTH OINT 3.5GM TUBE OD SCH ×2 (08:36→16:42)
[2021-05-15] MEDS: CHOLECALCIFEROL 400 UNIT TAB PO SCH (08:36)
[2021-05-15] MEDS: EYE LUBRICANT OPTH OINT 3.5GM TUBE OP SCH (08:36)
[2021-05-15] MEDS: ZINC SULFATE 220 MG CAP PO SCH (08:36)
[2021-05-15] MEDS: ASCORBIC ACID 500 MG TAB PO SCH ×2 (08:36→16:42)
[2021-05-15] MEDS: ENOXAPARIN INJ 80 MG/0.8 ML SYR SC SCH ×2 (08:36→21:39)
[2021-05-15 09:12] LABS: BAND NEUTROPHILS % (MANUAL) 2 %; EOSINOPHILS % (MANUAL) 2 % (0-7); LYMPHOCYTES % (MANUAL) 10 % (19-48); MONOCYTES % (MANUAL) 1 % (3.4-9.0); NEUTROPHILS % (MANUAL) 83 % (40-74)
[2021-05-15 09:13] LABS: PLATELET ESTIMATE MODERATELY INCREASED; PLATELET MORPHOLOGY COMMENT FEW LARGE; RBC MORPHOLOGY COMMENT NORMAL
[2021-05-15] MEDS ORDERED: SODIUM CHLORIDE 0.9% 500ML 500 ML ONE (14:41)
[2021-05-15 16:01] LABS: ABG PCO2 53 mmHg (35-45); ABG PH 7.36 (7.35-7.45)
[2021-05-15 16:02] LABS: ABG HCO3 29 mmol/L (22-26); ABG PO2 112 mmHg (80-105); ABG TCO2 31
[2021-05-15] MEDS: INSULIN GLARGINE 100 UNITS/ML VIAL SQ SCH (21:00)
[2021-05-15] MEDS: ACETAZOLAMIDE 250 MG TAB PO SCH (21:39)
[2021-05-15] MEDS: PROPOFOL IV EMULSION 10MG/ML 100 ML IV SCH (22:19)
[2021-05-16] VITALS (25 sets, daily range): BP systolic 105–155; BP diastolic 62–88
[2021-05-16] MEDS: METOCLOPRAMIDE HCL 10 MG/2ML VIAL IV SCH ×5 (00:40→23:20)
[2021-05-16] MEDS: INSULIN REGULAR, HUMAN 100 UNIT/1 ML SQ SCH ×5 (00:40→23:20)
[2021-05-16] MEDS: MIDAZOLAM HCL 5MG/ML 10ML VIAL 100 ML IV PRN ×4 (00:41→20:22)
[2021-05-16] MEDS: FENTANYL 2000MCG/NS 250 250 ML IV PRN ×2 (04:38→18:08)
[2021-05-16] MEDS: ROCURONIUM BROMIDE 1,250 MG in SODIUM CHLORIDE 0.9% 250ML 125 ML IV SCH (04:39)
[2021-05-16] MEDS: PROPOFOL IV EMULSION 10MG/ML 100 ML IV SCH (05:25)
[2021-05-16 06:13] LABS: BASOPHILS # (AUTO) 0.1 (0.0-0.1); BASOPHILS % 0.4 % (0.0-1.0); EOSINOPHILS # (AUTO) 0.4 (0.0-0.4); EOSINOPHILS % 2.3 % (0.0-6.0); HEMATOCRIT 35.5 % (34.2-44.1); LYMPHOCYTES # (AUTO) 1.3 (1.0-3.2); LYMPHOCYTES % 8.3 % (18.0-39.1); MEAN CORPUSCULAR HEMOGLOBIN 29.3 pg (28-32); MEAN CORPUSCULAR VOLUME 94.7 fL (81-99); MONOCYTES # (AUTO) 0.3 (0.2-0.8); NEUTROPHILS # (AUTO) 12.7 (2.1-6.9); NEUTROPHILS % 82.6 % (38.7-80.0); PLATELET COUNT 520 x10e3/uL (140-360); RED BLOOD COUNT 3.75 x10e6/uL (3.6-5.1); RED CELL DISTRIBUTION WIDTH 12.5 % (11.7-14.4)
[2021-05-16] MEDS: PROPOFOL IV EMULSION 10MG/ML 50 ML IV SCH ×2 (06:30→09:12)
[2021-05-16 06:44] LABS: ALANINE AMINOTRANSFERASE 82 IU/L (0-55); ALBUMIN 2.6 g/dL (3.5-5.0); ALBUMIN/GLOBULIN RATIO 0.8 (0.8-2.0); ALKALINE PHOSPHATASE 91 IU/L (40-150); ANION GAP 13.4 mmol/L (8-16); BLOOD UREA NITROGEN 13 mg/dL (7-26); BUN/CREATININE RATIO 24 (6-25); CARBON DIOXIDE 29 mmol/L (22-29); CHLORIDE 103 mmol/L (98-107); CREATININE, SERUM 0.55 mg/dL (0.57-1.11); EST GLOMERULAR FILTRATION RATE > 60 ML/MIN (60-); GLUCOSE 112 mg/dL (74-118); POTASSIUM 4.4 mmol/L (3.5-5.1); SODIUM 141 mmol/L (136-145)
[2021-05-16] MEDS ORDERED: ALBUMIN 25% 25GM 100ML 0.25 GM/ML BTL IV SCH (09:15)
[2021-05-16] MEDS: EYE LUBRICANT OPTH OINT 3.5GM TUBE OP SCH (09:30)
[2021-05-16] MEDS: ENOXAPARIN INJ 80 MG/0.8 ML SYR SC SCH ×2 (09:30→21:37)
[2021-05-16] MEDS: FAMOTIDINE 20 MG/2 ML VIAL IV SCH ×2 (09:30→17:31)
[2021-05-16] MEDS: ZINC SULFATE 220 MG CAP PO SCH (09:30)
[2021-05-16] MEDS: FUROSEMIDE INJ 10 MG/ML 4 ML VIAL IV SCH ×2 (09:30→21:37)
[2021-05-16] MEDS: ACETAZOLAMIDE 250 MG TAB PO SCH ×2 (09:30→21:37)
[2021-05-16] MEDS: CHOLECALCIFEROL 400 UNIT TAB PO SCH (09:30)
[2021-05-16] MEDS: ASCORBIC ACID 500 MG TAB PO SCH ×2 (09:30→17:31)
[2021-05-16] MEDS: ALBUMIN 25% 25GM 100ML 100 ML IV SCH ×2 (09:31→17:31)
[2021-05-16 10:57] LABS: ABG PH 7.26 (7.35-7.45)
[2021-05-16 10:59] LABS: ABG HCO3 32 mmol/L (22-26); ABG PCO2 70 mmHg (35-45); ABG PO2 84 mmHg (80-105); ABG TCO2 34
[2021-05-16] MEDS ORDERED: VANCOMYCIN 1GM/NS 250 ML 250 ML IV SCH (12:00)
[2021-05-16 12:26] LABS: CLARITY,URINE CLEAR (CLEAR); COLOR,URINE YELLOW (YELLOW); KETONES,URINE 2+ (NEGATIVE); LEUKOCYTE ESTERASE ,URINE MODERATE (NEGATIVE); NITRITE,URINE NEGATIVE (NEGATIVE); PROTEIN,URINE DIPSTICK TRACE (NEGATIVE); URINE UROBILINOGEN 0.2 mg/dL (0.2 - 1)
[2021-05-16 12:36] LABS: BACTERIA,URINE FEW /HPF; EPITHELIAL CELLS,URINE FEW /LPF
[2021-05-16] MEDS: Vancomycin IV 1 GM in SODIUM CHLORIDE 0.9% 250ML 250 ML IV SCH (13:15)
[2021-05-16] MEDS: CEFEPIME 2 GM in SODIUM CHLORIDE 0.9% 100 ML IV SCH ×2 (14:59→21:38)
[2021-05-16] MEDS ORDERED: PROPOFOL IV EMULSION 10MG/ML 50 ML IV SCH (16:00)
[2021-05-16] MEDS: PROPOFOL IV EMULSION 50 ML IV SCH ×2 (16:57→20:21)
[2021-05-16 17:41] LABS: ABG PCO2 66 mmHg (35-45); ABG PH 7.25 (7.35-7.45)
[2021-05-16 17:42] LABS: ABG HCO3 29 mmol/L (22-26); ABG PO2 65 mmHg (80-105); ABG TCO2 31
[2021-05-16] MEDS: INSULIN GLARGINE 100 UNITS/ML VIAL SQ SCH (21:37)
[2021-05-16] MEDS: ACETAMINOPHEN 325 MG TAB NG PRN (23:21)
[2021-05-17] VITALS (33 sets, daily range): BP systolic 93–149; BP diastolic 52–67
[2021-05-17] MEDS: ROCURONIUM BROMIDE 1,250 MG in SODIUM CHLORIDE 0.9% 250ML 125 ML IV SCH ×2 (00:30→18:21)
[2021-05-17] MEDS: PROPOFOL IV EMULSION 50 ML IV SCH ×2 (00:31→13:05)
[2021-05-17] MEDS: FENTANYL 2000MCG/NS 250 250 ML IV PRN ×4 (01:03→18:21)
[2021-05-17] MEDS: MIDAZOLAM HCL 5MG/ML 10ML VIAL 100 ML IV PRN ×3 (01:05→11:13)
[2021-05-17] MEDS: Vancomycin IV 1 GM in SODIUM CHLORIDE 0.9% 250ML 250 ML IV SCH ×2 (01:58→12:45)
[2021-05-17 05:36] LABS: BASOPHILS # (AUTO) 0.1 (0.0-0.1); BASOPHILS % 0.4 % (0.0-1.0); EOSINOPHILS # (AUTO) 0.3 (0.0-0.4); EOSINOPHILS % 2.1 % (0.0-6.0); HEMATOCRIT 31.3 % (34.2-44.1); HEMOGLOBIN 9.7 g/dL (12.0-16.0); LYMPHOCYTES % 8.1 % (18.0-39.1); MEAN CORPUSCULAR HEMOGLOBIN 29.2 pg (28-32); MEAN CORPUSCULAR VOLUME 94.3 fL (81-99); MONOCYTES # (AUTO) 0.3 (0.2-0.8); MONOCYTES % 2.4 % (4.4-11.3); NEUTROPHILS # (AUTO) 9.9 (2.1-6.9); NEUTROPHILS % 83.1 % (38.7-80.0); PLATELET COUNT 416 x10e3/uL (140-360); RED BLOOD COUNT 3.32 x10e6/uL (3.6-5.1); RED CELL DISTRIBUTION WIDTH 12.9 % (11.7-14.4)
[2021-05-17] MEDS: METOCLOPRAMIDE HCL 10 MG/2ML VIAL IV SCH ×3 (05:46→17:28)
[2021-05-17] MEDS: CEFEPIME 2 GM in SODIUM CHLORIDE 0.9% 100 ML IV SCH ×3 (05:46→22:26)
[2021-05-17] MEDS: INSULIN REGULAR, HUMAN 100 UNIT/1 ML SQ SCH ×3 (05:47→17:38)
[2021-05-17 06:00] LABS: ALANINE AMINOTRANSFERASE 59 IU/L (0-55); ALBUMIN 3.2 g/dL (3.5-5.0); ALBUMIN/GLOBULIN RATIO 1.2 (0.8-2.0); ALKALINE PHOSPHATASE 94 IU/L (40-150); ANION GAP 10.7 mmol/L (8-16); BLOOD UREA NITROGEN 11 mg/dL (7-26); BUN/CREATININE RATIO 20 (6-25); CALCIUM 8.1 mg/dL (8.4-10.2); CARBON DIOXIDE 30 mmol/L (22-29); CHLORIDE 104 mmol/L (98-107); CREATININE, SERUM 0.54 mg/dL (0.57-1.11); EST GLOMERULAR FILTRATION RATE > 60 ML/MIN (60-); GLUCOSE 103 mg/dL (74-118); POTASSIUM 3.7 mmol/L (3.5-5.1); SODIUM 141 mmol/L (136-145)
[2021-05-17 06:21] LABS: MAGNESIUM 2.2 MG/DL (1.3-2.1)
[2021-05-17 06:27] LABS: INR 1.04; PROTHROMBIN TIME 14.2 seconds (11.9-14.5)
[2021-05-17 06:28] LABS: PARTIAL THROMBOPLASTIN TIME 26.9 seconds (23.8-35.5)
[2021-05-17 07:51] LABS: ABG PCO2 63 mmHg (35-45); ABG PH 7.28 (7.35-7.45)
[2021-05-17 07:52] LABS: ABG HCO3 30 mmol/L (22-26); ABG PO2 74 mmHg (80-105); ABG TCO2 32
[2021-05-17] MEDS ORDERED: POTASSIUM CHLORIDE 20MEQ/100ML 100 ML IV ONE (08:00)
[2021-05-17] MEDS: FAMOTIDINE 20 MG/2 ML VIAL IV SCH ×2 (08:18→17:28)
[2021-05-17] MEDS: ASCORBIC ACID 500 MG TAB PO SCH ×2 (08:18→17:28)
[2021-05-17] MEDS: CHOLECALCIFEROL 400 UNIT TAB PO SCH (08:18)
[2021-05-17] MEDS: ZINC SULFATE 220 MG CAP PO SCH (08:18)
[2021-05-17] MEDS: EYE LUBRICANT OPTH OINT 3.5GM TUBE OP SCH (08:18)
[2021-05-17] MEDS: ENOXAPARIN INJ 80 MG/0.8 ML SYR SC SCH ×2 (08:18→21:00)
[2021-05-17] MEDS: FUROSEMIDE INJ 10 MG/ML 4 ML VIAL IV SCH (08:18)
[2021-05-17] MEDS: ACETAMINOPHEN 325 MG TAB NG PRN (10:16)
[2021-05-17 15:34] LABS: ABG PCO2 65 mmHg (35-45); ABG PH 7.29 (7.35-7.45)
[2021-05-17 15:35] LABS: ABG HCO3 32 mmol/L (22-26); ABG PO2 89 mmHg (80-105); ABG TCO2 34
[2021-05-17] MEDS: INSULIN GLARGINE 100 UNITS/ML VIAL SQ SCH (21:00)
[2021-05-18] VITALS (32 sets, daily range): BP systolic 96–152; BP diastolic 51–70
[2021-05-18] MEDS: METOCLOPRAMIDE HCL 10 MG/2ML VIAL IV SCH ×4 (00:53→16:15)
[2021-05-18] MEDS: ACETAMINOPHEN 325 MG TAB NG PRN (01:28)
[2021-05-18] MEDS: Vancomycin IV 1 GM in SODIUM CHLORIDE 0.9% 250ML 250 ML IV SCH (02:27)
[2021-05-18 05:45] LABS: BASOPHILS # (AUTO) 0.1 (0.0-0.1); BASOPHILS % 0.5 % (0.0-1.0); EOSINOPHILS # (AUTO) 0.2 (0.0-0.4); EOSINOPHILS % 1.3 % (0.0-6.0); HEMOGLOBIN 10.3 g/dL (12.0-16.0); LYMPHOCYTES # (AUTO) 0.8 (1.0-3.2); LYMPHOCYTES % 4.3 % (18.0-39.1); MEAN CORPUSCULAR HEMOGLOBIN 29.2 pg (28-32); MEAN CORPUSCULAR HGB CONC 30.3 g/dL (31-35); MEAN CORPUSCULAR VOLUME 96.3 fL (81-99); MONOCYTES # (AUTO) 0.4 (0.2-0.8); MONOCYTES % 2.5 % (4.4-11.3); NEUTROPHILS # (AUTO) 15.2 (2.1-6.9); NEUTROPHILS % 87.1 % (38.7-80.0); PLATELET COUNT 391 x10e3/uL (140-360); RED BLOOD COUNT 3.53 x10e6/uL (3.6-5.1); RED CELL DISTRIBUTION WIDTH 13.4 % (11.7-14.4)
[2021-05-18] MEDS: INSULIN REGULAR, HUMAN 100 UNIT/1 ML SQ SCH ×4 (06:00→17:34)
[2021-05-18] MEDS: CEFEPIME 2 GM in SODIUM CHLORIDE 0.9% 100 ML IV SCH ×3 (06:15→20:32)
[2021-05-18 06:41] LABS: ALANINE AMINOTRANSFERASE 57 IU/L (0-55); ALKALINE PHOSPHATASE 135 IU/L (40-150); ANION GAP 11.6 mmol/L (8-16); BLOOD UREA NITROGEN 10 mg/dL (7-26); BUN/CREATININE RATIO 18 (6-25); CALCIUM 8.3 mg/dL (8.4-10.2); CARBON DIOXIDE 32 mmol/L (22-29); CHLORIDE 102 mmol/L (98-107); CREATININE, SERUM 0.56 mg/dL (0.57-1.11); EST GLOMERULAR FILTRATION RATE > 60 ML/MIN (60-); GLUCOSE 176 mg/dL (74-118); POTASSIUM 4.6 mmol/L (3.5-5.1); SODIUM 141 mmol/L (136-145)
[2021-05-18] MEDS: FENTANYL 2000MCG/NS 250 250 ML IV PRN ×3 (08:26→17:17)
[2021-05-18] MEDS: BALSAM PERU/CASTOR OIL 60 GM OINT...G. TP SCH (08:53)
[2021-05-18] MEDS: ENOXAPARIN INJ 80 MG/0.8 ML SYR SC SCH ×2 (08:53→20:32)
[2021-05-18] MEDS: EYE LUBRICANT OPTH OINT 3.5GM TUBE OP SCH (08:53)
[2021-05-18] MEDS: ZINC SULFATE 220 MG CAP PO SCH (08:53)
[2021-05-18] MEDS: CHOLECALCIFEROL 400 UNIT TAB PO SCH (08:53)
[2021-05-18] MEDS: ASCORBIC ACID 500 MG TAB PO SCH ×2 (08:53→16:14)
[2021-05-18] MEDS: FAMOTIDINE 20 MG/2 ML VIAL IV SCH ×2 (08:53→16:14)
[2021-05-18 09:05] LABS: ABG PH 7.26 (7.35-7.45)
[2021-05-18 09:06] LABS: ABG HCO3 35 mmol/L (22-26); ABG PCO2 76 mmHg (35-45); ABG PO2 73 mmHg (80-105); ABG TCO2 37
[2021-05-18] MEDS: VANCOMYCIN 300 ML IV SCH ×2 (09:09→21:42)
[2021-05-18] MEDS: MIDAZOLAM HCL 5MG/ML 10ML VIAL 100 ML IV PRN ×3 (11:42→21:30)
[2021-05-18] MEDS: PROPOFOL IV EMULSION 50 ML IV SCH ×2 (15:13→19:30)
[2021-05-18 16:01] LABS: ABG HCO3 33 mmol/L (22-26); ABG PCO2 67 mmHg (35-45); ABG PO2 72 mmHg (80-105)
[2021-05-18 16:02] LABS: ABG TCO2 35
[2021-05-18] MEDS: ROCURONIUM BROMIDE 1,250 MG in SODIUM CHLORIDE 0.9% 250ML 125 ML IV SCH (16:14)
[2021-05-18] MEDS: INSULIN GLARGINE 100 UNITS/ML VIAL SQ SCH (21:00)
[2021-05-18] MEDS ORDERED: Vancomycin IV 500 MG ONE (21:11)
[2021-05-18] MEDS ORDERED: SODIUM CHLORIDE 0.9% 500ML 500 ML ONE ×2 (21:12→21:17)
[2021-05-18] MEDS ORDERED: Vancomycin IV 1 GM VIAL ONE (21:12)
[2021-05-19] VITALS (25 sets, daily range): BP systolic 105–175; BP diastolic 62–89
[2021-05-19] MEDS: PROPOFOL IV EMULSION 50 ML IV SCH ×3 (01:00→14:37)
[2021-05-19] MEDS: INSULIN REGULAR, HUMAN 100 UNIT/1 ML SQ SCH ×5 (02:52→23:22)
[2021-05-19] MEDS: MIDAZOLAM HCL 5MG/ML 10ML VIAL 100 ML IV PRN ×3 (02:53→23:23)
[2021-05-19] MEDS: METOCLOPRAMIDE HCL 10 MG/2ML VIAL IV SCH ×5 (05:43→23:22)
[2021-05-19] MEDS: CEFEPIME 2 GM in SODIUM CHLORIDE 0.9% 100 ML IV SCH ×3 (05:43→20:56)
[2021-05-19 05:53] LABS: BASOPHILS # (AUTO) 0.1 (0.0-0.1); BASOPHILS % 0.4 % (0.0-1.0); EOSINOPHILS # (AUTO) 0.2 (0.0-0.4); EOSINOPHILS % 1.5 % (0.0-6.0); HEMATOCRIT 29.5 % (34.2-44.1); HEMOGLOBIN 9.3 g/dL (12.0-16.0); LYMPHOCYTES # (AUTO) 0.9 (1.0-3.2); MEAN CORPUSCULAR HGB CONC 31.5 g/dL (31-35); MEAN CORPUSCULAR VOLUME 95.2 fL (81-99); MONOCYTES # (AUTO) 0.5 (0.2-0.8); MONOCYTES % 3.2 % (4.4-11.3); NEUTROPHILS # (AUTO) 12.2 (2.1-6.9); NEUTROPHILS % 86.5 % (38.7-80.0); PLATELET COUNT 335 x10e3/uL (140-360); RED CELL DISTRIBUTION WIDTH 13.8 % (11.7-14.4)
[2021-05-19 06:15] LABS: INR 1.03; PARTIAL THROMBOPLASTIN TIME 26.2 seconds (23.8-35.5); PROTHROMBIN TIME 14.1 seconds (11.9-14.5)
[2021-05-19] MEDS ORDERED: HEPARIN SOD/SOD CHLORIDE 1,000 ML ONE (06:39)
[2021-05-19 06:50] LABS: ALANINE AMINOTRANSFERASE 39 IU/L (0-55); ALBUMIN 2.7 g/dL (3.5-5.0); ALBUMIN/GLOBULIN RATIO 0.9 (0.8-2.0); ALKALINE PHOSPHATASE 119 IU/L (40-150); BLOOD UREA NITROGEN 10 mg/dL (7-26); BUN/CREATININE RATIO 22 (6-25); CALCIUM 8.1 mg/dL (8.4-10.2); CARBON DIOXIDE 31 mmol/L (22-29); CHLORIDE 104 mmol/L (98-107); CREATININE, SERUM 0.46 mg/dL (0.57-1.11); EST GLOMERULAR FILTRATION RATE > 60 ML/MIN (60-); GLUCOSE 116 mg/dL (74-118); SODIUM 143 mmol/L (136-145)
[2021-05-19] MEDS: FENTANYL 2000MCG/NS 250 250 ML IV PRN ×2 (07:08→20:58)
[2021-05-19] MEDS: EYE LUBRICANT OPTH OINT 3.5GM TUBE OP SCH (09:57)
[2021-05-19] MEDS: ENOXAPARIN INJ 80 MG/0.8 ML SYR SC SCH ×2 (09:57→20:56)
[2021-05-19] MEDS: VANCOMYCIN 300 ML IV SCH ×2 (09:57→23:22)
[2021-05-19] MEDS: BALSAM PERU/CASTOR OIL 60 GM OINT...G. TP SCH (09:57)
[2021-05-19] MEDS: CHOLECALCIFEROL 400 UNIT TAB PO SCH (09:57)
[2021-05-19] MEDS: ZINC SULFATE 220 MG CAP PO SCH (09:57)
[2021-05-19] MEDS: ASCORBIC ACID 500 MG TAB PO SCH ×2 (09:57→17:58)
[2021-05-19] MEDS: FAMOTIDINE 20 MG/2 ML VIAL IV SCH ×2 (09:57→17:58)
[2021-05-19] MEDS: ROCURONIUM BROMIDE 1,250 MG in SODIUM CHLORIDE 0.9% 250ML 125 ML IV SCH (14:40)
[2021-05-19 16:10] LABS: ABG PH 7.29 (7.35-7.45)
[2021-05-19 16:11] LABS: ABG PCO2 65 mmHg (35-45); ABG PO2 75 mmHg (80-105)
[2021-05-19 16:12] LABS: ABG HCO3 31 mmol/L (22-26); ABG TCO2 33
[2021-05-19 16:23] LABS: ABG HCO3 33 mmol/L (22-26); ABG PCO2 58 mmHg (35-45); ABG PH 7.37 (7.35-7.45); ABG PO2 97 mmHg (80-105); ABG TCO2 35
[2021-05-19] MEDS: INSULIN GLARGINE 100 UNITS/ML VIAL SQ SCH (20:57)
[2021-05-20] VITALS (26 sets, daily range): BP systolic 103–149; BP diastolic 62–77
[2021-05-20] MEDS: PROPOFOL IV EMULSION 50 ML IV SCH ×4 (03:49→15:15)
[2021-05-20] MEDS: FENTANYL 2000MCG/NS 250 250 ML IV PRN ×3 (03:51→17:33)
[2021-05-20] MEDS: CEFEPIME 2 GM in SODIUM CHLORIDE 0.9% 100 ML IV SCH ×3 (04:33→22:00)
[2021-05-20 04:45] LABS: BASOPHILS # (AUTO) 0.1 (0.0-0.1); BASOPHILS % 0.6 % (0.0-1.0); EOSINOPHILS # (AUTO) 0.2 (0.0-0.4); EOSINOPHILS % 1.7 % (0.0-6.0); HEMATOCRIT 29.9 % (34.2-44.1); HEMOGLOBIN 9.2 g/dL (12.0-16.0); LYMPHOCYTES # (AUTO) 1.2 (1.0-3.2); LYMPHOCYTES % 8.8 % (18.0-39.1); MEAN CORPUSCULAR HEMOGLOBIN 29.6 pg (28-32); MEAN CORPUSCULAR HGB CONC 30.8 g/dL (31-35); MEAN CORPUSCULAR VOLUME 96.1 fL (81-99); MONOCYTES # (AUTO) 0.6 (0.2-0.8); MONOCYTES % 4.1 % (4.4-11.3); NEUTROPHILS % 81.8 % (38.7-80.0); PLATELET COUNT 295 x10e3/uL (140-360); RED BLOOD COUNT 3.11 x10e6/uL (3.6-5.1); RED CELL DISTRIBUTION WIDTH 14.4 % (11.7-14.4)
[2021-05-20 05:04] LABS: ALANINE AMINOTRANSFERASE 35 IU/L (0-55); ALBUMIN 2.6 g/dL (3.5-5.0); ALBUMIN/GLOBULIN RATIO 0.9 (0.8-2.0); ALKALINE PHOSPHATASE 139 IU/L (40-150); ANION GAP 12.7 mmol/L (8-16); BLOOD UREA NITROGEN 11 mg/dL (7-26); BUN/CREATININE RATIO 23 (6-25); CALCIUM 8.2 mg/dL (8.4-10.2); CARBON DIOXIDE 30 mmol/L (22-29); CHLORIDE 106 mmol/L (98-107); CREATININE, SERUM 0.47 mg/dL (0.57-1.11); EST GLOMERULAR FILTRATION RATE > 60 ML/MIN (60-); GLUCOSE 105 mg/dL (74-118); POTASSIUM 3.7 mmol/L (3.5-5.1); SODIUM 145 mmol/L (136-145)
[2021-05-20] MEDS: MIDAZOLAM HCL 5MG/ML 10ML VIAL 100 ML IV PRN ×5 (05:06→21:40)
[2021-05-20] MEDS: METOCLOPRAMIDE HCL 10 MG/2ML VIAL IV SCH ×3 (05:07→17:32)
[2021-05-20] MEDS: INSULIN REGULAR, HUMAN 100 UNIT/1 ML SQ SCH ×3 (05:45→18:00)
[2021-05-20 07:15] LABS: ABG HCO3 33 mmol/L (22-26); ABG PCO2 60 mmHg (35-45); ABG PH 7.34 (7.35-7.45); ABG PO2 83 mmHg (80-105); ABG TCO2 35
[2021-05-20] MEDS: FAMOTIDINE 20 MG/2 ML VIAL IV SCH ×2 (08:20→17:32)
[2021-05-20] MEDS: EYE LUBRICANT OPTH OINT 3.5GM TUBE OP SCH (08:20)
[2021-05-20] MEDS: ZINC SULFATE 220 MG CAP PO SCH (08:21)
[2021-05-20] MEDS: ENOXAPARIN INJ 80 MG/0.8 ML SYR SC SCH ×2 (08:21→22:01)
[2021-05-20] MEDS: ASCORBIC ACID 500 MG TAB PO SCH ×2 (08:21→17:32)
[2021-05-20] MEDS: CHOLECALCIFEROL 400 UNIT TAB PO SCH (08:21)
[2021-05-20] MEDS: BALSAM PERU/CASTOR OIL 60 GM OINT...G. TP SCH (09:00)
[2021-05-20] MEDS: VANCOMYCIN 300 ML IV SCH ×2 (10:00→22:06)
[2021-05-20] MEDS: ACETAZOLAMIDE 250 MG TAB PO SCH ×2 (10:00→22:01)
[2021-05-20] MEDS: ROCURONIUM BROMIDE 1,250 MG in SODIUM CHLORIDE 0.9% 250ML 125 ML IV SCH (13:40)
[2021-05-20 15:47] LABS: ABG HCO3 33 mmol/L (22-26); ABG PCO2 69 mmHg (35-45); ABG PH 7.28 (7.35-7.45); ABG PO2 128 mmHg (80-105); ABG TCO2 35
[2021-05-20] MEDS: INSULIN GLARGINE 100 UNITS/ML VIAL SQ SCH (22:05)
[2021-05-21 00:12] VITALS: BP 106/66
[2021-05-21] MEDS: METOCLOPRAMIDE HCL 10 MG/2ML VIAL IV SCH ×4 (00:34→17:22)
[2021-05-21] MEDS: INSULIN REGULAR, HUMAN 100 UNIT/1 ML SQ SCH ×4 (00:35→18:00)
[2021-05-21] MEDS: PROPOFOL IV EMULSION 50 ML IV SCH ×4 (01:01→18:34)
[2021-05-21] MEDS: MIDAZOLAM HCL 5MG/ML 10ML VIAL 100 ML IV PRN ×4 (01:02→21:10)
[2021-05-21] MEDS: CEFEPIME 2 GM in SODIUM CHLORIDE 0.9% 100 ML IV SCH ×3 (05:00→21:08)
[2021-05-21 05:07] LABS: BASOPHILS # (AUTO) 0.1 (0.0-0.1); BASOPHILS % 0.8 % (0.0-1.0); EOSINOPHILS # (AUTO) 0.3 (0.0-0.4); HEMATOCRIT 28.6 % (34.2-44.1); HEMOGLOBIN 8.5 g/dL (12.0-16.0); LYMPHOCYTES # (AUTO) 0.9 (1.0-3.2); LYMPHOCYTES % 8.8 % (18.0-39.1); MEAN CORPUSCULAR HGB CONC 29.7 g/dL (31-35); MEAN CORPUSCULAR VOLUME 97.6 fL (81-99); MONOCYTES # (AUTO) 0.6 (0.2-0.8); MONOCYTES % 5.8 % (4.4-11.3); NEUTROPHILS % 76.6 % (38.7-80.0); PLATELET COUNT 270 x10e3/uL (140-360); RED BLOOD COUNT 2.93 x10e6/uL (3.6-5.1)
[2021-05-21 05:18] LABS: INR 0.96; PARTIAL THROMBOPLASTIN TIME 27.8 seconds (23.8-35.5); PROTHROMBIN TIME 13.4 seconds (11.9-14.5)
[2021-05-21 05:30] LABS: ALANINE AMINOTRANSFERASE 37 IU/L (0-55); ALBUMIN 2.5 g/dL (3.5-5.0); ALBUMIN/GLOBULIN RATIO 0.8 (0.8-2.0); ALKALINE PHOSPHATASE 135 IU/L (40-150); ANION GAP 12.2 mmol/L (8-16); BLOOD UREA NITROGEN 12 mg/dL (7-26); BUN/CREATININE RATIO 25 (6-25); CALCIUM 8.3 mg/dL (8.4-10.2); CARBON DIOXIDE 29 mmol/L (22-29); CHLORIDE 106 mmol/L (98-107); CREATININE, SERUM 0.48 mg/dL (0.57-1.11); EST GLOMERULAR FILTRATION RATE > 60 ML/MIN (60-); GLUCOSE 145 mg/dL (74-118); POTASSIUM 3.2 mmol/L (3.5-5.1); SODIUM 144 mmol/L (136-145)
[2021-05-21] MEDS ORDERED: SODIUM CHLORIDE 0.9% 100 ML ONE (05:36)
[2021-05-21] MEDS ORDERED: CEFEPIME 2 GM VIAL ONE (05:41)
[2021-05-21] MEDS ORDERED: POTASSIUM CHLORIDE 20MEQ/100ML 200 ML IV ONE (08:30)
[2021-05-21 08:39] LABS: ABG HCO3 29 mmol/L (22-26); ABG PCO2 55 mmHg (35-45); ABG PH 7.33 (7.35-7.45); ABG PO2 90 mmHg (80-105); ABG TCO2 31
[2021-05-21] MEDS: FAMOTIDINE 20 MG/2 ML VIAL IV SCH ×2 (09:23→16:47)
[2021-05-21] MEDS: CHOLECALCIFEROL 400 UNIT TAB PO SCH (09:23)
[2021-05-21] MEDS: ENOXAPARIN INJ 80 MG/0.8 ML SYR SC SCH ×2 (09:23→21:08)
[2021-05-21] MEDS: ZINC SULFATE 220 MG CAP PO SCH (09:23)
[2021-05-21] MEDS: ASCORBIC ACID 500 MG TAB PO SCH ×2 (09:23→16:42)
[2021-05-21] MEDS: EYE LUBRICANT OPTH OINT 3.5GM TUBE OP SCH (09:23)
[2021-05-21] MEDS: ACETAZOLAMIDE 250 MG TAB PO SCH (09:23)
[2021-05-21] MEDS: BALSAM PERU/CASTOR OIL 60 GM OINT...G. TP SCH (09:23)
[2021-05-21] MEDS: FUROSEMIDE INJ 10 MG/ML 4 ML VIAL IV SCH ×2 (09:25→21:21)
[2021-05-21] MEDS: VANCOMYCIN 300 ML IV SCH ×2 (09:32→22:19)
[2021-05-21] MEDS: ROCURONIUM BROMIDE 1,250 MG in SODIUM CHLORIDE 0.9% 250ML 125 ML IV SCH ×2 (11:08→16:44)
[2021-05-21] MEDS: FENTANYL 2000MCG/NS 250 250 ML IV PRN ×2 (14:11→20:10)
[2021-05-21 17:44] LABS: ABG PH 7.27 (7.35-7.45)
[2021-05-21 17:45] LABS: ABG HCO3 31 mmol/L (22-26); ABG PCO2 68 mmHg (35-45); ABG PO2 64 mmHg (80-105); ABG TCO2 33
[2021-05-21 19:51] LABS: ABG PCO2 68 mmHg (35-45); ABG PH 7.25 (7.35-7.45)
[2021-05-21 19:52] LABS: ABG HCO3 30 mmol/L (22-26); ABG PO2 83 mmHg (80-105); ABG TCO2 32
[2021-05-21] MEDS: INSULIN GLARGINE 100 UNITS/ML VIAL SQ SCH (21:21)
[2021-05-22] MEDS: METOCLOPRAMIDE HCL 10 MG/2ML VIAL IV SCH ×4 (00:04→18:00)
[2021-05-22] MEDS: INSULIN REGULAR, HUMAN 100 UNIT/1 ML SQ SCH ×4 (00:05→18:00)
[2021-05-22] MEDS: PROPOFOL IV EMULSION 50 ML IV SCH ×2 (00:31→00:32)
[2021-05-22] MEDS: MIDAZOLAM HCL 5MG/ML 10ML VIAL 100 ML IV PRN ×3 (02:10→11:45)
[2021-05-22] MEDS: CEFEPIME 2 GM in SODIUM CHLORIDE 0.9% 100 ML IV SCH ×3 (05:00→21:00)
[2021-05-22 05:11] LABS: BASOPHILS # (AUTO) 0.1 (0.0-0.1); BASOPHILS % 0.9 % (0.0-1.0); EOSINOPHILS # (AUTO) 0.3 (0.0-0.4); EOSINOPHILS % 3.2 % (0.0-6.0); HEMATOCRIT 28.2 % (34.2-44.1); HEMOGLOBIN 8.8 g/dL (12.0-16.0); LYMPHOCYTES % 9.1 % (18.0-39.1); MEAN CORPUSCULAR HGB CONC 31.2 g/dL (31-35); MEAN CORPUSCULAR VOLUME 96.2 fL (81-99); MONOCYTES # (AUTO) 0.6 (0.2-0.8); MONOCYTES % 5.5 % (4.4-11.3); NEUTROPHILS # (AUTO) 7.9 (2.1-6.9); NEUTROPHILS % 74.6 % (38.7-80.0); PLATELET COUNT 295 x10e3/uL (140-360); RED BLOOD COUNT 2.93 x10e6/uL (3.6-5.1); RED CELL DISTRIBUTION WIDTH 15.3 % (11.7-14.4)
[2021-05-22 05:22] LABS: ALANINE AMINOTRANSFERASE 45 IU/L (0-55); ALBUMIN 2.4 g/dL (3.5-5.0); ALBUMIN/GLOBULIN RATIO 0.7 (0.8-2.0); ALKALINE PHOSPHATASE 144 IU/L (40-150); ANION GAP 13.4 mmol/L (8-16); BLOOD UREA NITROGEN 10 mg/dL (7-26); BUN/CREATININE RATIO 22 (6-25); CALCIUM 8.3 mg/dL (8.4-10.2); CARBON DIOXIDE 30 mmol/L (22-29); CHLORIDE 103 mmol/L (98-107); CREATININE, SERUM 0.46 mg/dL (0.57-1.11); EST GLOMERULAR FILTRATION RATE > 60 ML/MIN (60-); GLUCOSE 139 mg/dL (74-118); POTASSIUM 3.4 mmol/L (3.5-5.1); SODIUM 143 mmol/L (136-145)
[2021-05-22 06:47] LABS: BAND NEUTROPHILS % (MANUAL) 4 %; EOSINOPHILS % (MANUAL) 3 % (0-7); LYMPHOCYTES % (MANUAL) 8 % (19-48); MONOCYTES % (MANUAL) 8 % (3.4-9.0); MYELOCYTES % (MANUAL) 3 % (0-0); NEUTROPHILS % (MANUAL) 74 % (40-74)
[2021-05-22 06:48] LABS: ANISOCYTOSIS SLIGHT; PLATELET ESTIMATE ADEQUATE; POLYCHROMASIA FEW
[2021-05-22 06:49] LABS: PLATELET MORPHOLOGY COMMENT RARE EDTA CLUMPING
[2021-05-22 06:50] LABS: GIANT PLATELETS RARE; LARGE PLATELETS FEW; RBC MORPHOLOGY COMMENT ABNORMAL
[2021-05-22 07:46] LABS: ABG PH 7.26 (7.35-7.45)
[2021-05-22 07:47] LABS: ABG HCO3 32 mmol/L (22-26); ABG PCO2 71 mmHg (35-45); ABG PO2 105 mmHg (80-105); ABG TCO2 34
[2021-05-22] MEDS: FUROSEMIDE INJ 10 MG/ML 4 ML VIAL IV SCH (08:14)
[2021-05-22] MEDS: EYE LUBRICANT OPTH OINT 3.5GM TUBE OP SCH (08:14)
[2021-05-22] MEDS: ASCORBIC ACID 500 MG TAB PO SCH ×2 (08:14→17:00)
[2021-05-22] MEDS: FAMOTIDINE 20 MG/2 ML VIAL IV SCH ×2 (08:14→17:00)
[2021-05-22] MEDS: BALSAM PERU/CASTOR OIL 60 GM OINT...G. TP SCH (08:15)
[2021-05-22] MEDS: ZINC SULFATE 220 MG CAP PO SCH (08:15)
[2021-05-22] MEDS: CHOLECALCIFEROL 400 UNIT TAB PO SCH (08:15)
[2021-05-22] MEDS: ENOXAPARIN INJ 80 MG/0.8 ML SYR SC SCH ×2 (08:15→21:00)
[2021-05-22] MEDS: FENTANYL 2000MCG/NS 250 250 ML IV PRN (09:08)
[2021-05-22] MEDS: VANCOMYCIN 300 ML IV SCH ×2 (11:39→22:00)
[2021-05-22] MEDS ORDERED: KCL 20 MEQ PACKET/ ORAL SOLN NG ONE (15:00)
[2021-05-22] MEDS: INSULIN GLARGINE 100 UNITS/ML VIAL SQ SCH (21:00)
[2021-05-22] MEDS ORDERED: SODIUM CHLORIDE 0.9% 250ML 250 ML ONE (21:16)
[2021-05-23] VITALS (14 sets, daily range): BP systolic 94–141; BP diastolic 61–79
[2021-05-23] MEDS: CEFEPIME 2 GM in SODIUM CHLORIDE 0.9% 100 ML IV SCH ×3 (05:00→20:27)
[2021-05-23] MEDS ORDERED: ROCURONIUM 1250MG/NS 250 250 ML IV ONE (05:39)
[2021-05-23] MEDS: INSULIN REGULAR, HUMAN 100 UNIT/1 ML SQ SCH ×4 (06:00→17:09)
[2021-05-23] MEDS: METOCLOPRAMIDE HCL 10 MG/2ML VIAL IV SCH ×4 (06:00→17:00)
[2021-05-23] MEDS: FAMOTIDINE 20 MG/2 ML VIAL IV SCH ×2 (09:00→16:28)
[2021-05-23] MEDS: ZINC SULFATE 220 MG CAP PO SCH (09:00)
[2021-05-23] MEDS: ASCORBIC ACID 500 MG TAB PO SCH ×2 (09:00→16:28)
[2021-05-23] MEDS: CHOLECALCIFEROL 400 UNIT TAB PO SCH (09:00)
[2021-05-23] MEDS: ENOXAPARIN INJ 80 MG/0.8 ML SYR SC SCH ×2 (09:00→20:27)
[2021-05-23] MEDS: BALSAM PERU/CASTOR OIL 60 GM OINT...G. TP SCH (09:00)
[2021-05-23] MEDS: EYE LUBRICANT OPTH OINT 3.5GM TUBE OP SCH (09:00)
[2021-05-23] MEDS: VANCOMYCIN 300 ML IV SCH ×2 (10:00→23:00)
[2021-05-23] MEDS: FENTANYL 2000MCG/NS 250 250 ML IV PRN ×2 (14:48→20:27)
[2021-05-23] MEDS: PROPOFOL IV EMULSION 50 ML IV SCH ×2 (14:51→21:00)
[2021-05-23] MEDS: ROCURONIUM BROMIDE 1,250 MG in SODIUM CHLORIDE 0.9% 250ML 125 ML IV SCH (15:15)
[2021-05-23 15:53] LABS: ABG PCO2 63 mmHg (35-45); ABG PH 7.34 (7.35-7.45)
[2021-05-23 15:54] LABS: ABG HCO3 34 mmol/L (22-26); ABG PO2 68 mmHg (80-105); ABG TCO2 36
[2021-05-23] MEDS: MIDAZOLAM HCL 5MG/ML 10ML VIAL 100 ML IV PRN ×2 (18:14→22:59)
[2021-05-23] MEDS: INSULIN GLARGINE 100 UNITS/ML VIAL SQ SCH (20:52)
[2021-05-24] VITALS (24 sets, daily range): BP systolic 100–148; BP diastolic 59–74
[2021-05-24] MEDS: METOCLOPRAMIDE HCL 10 MG/2ML VIAL IV SCH ×4 (00:39→18:37)
[2021-05-24] MEDS: INSULIN REGULAR, HUMAN 100 UNIT/1 ML SQ SCH ×4 (00:39→19:03)
[2021-05-24] MEDS: FENTANYL 2000MCG/NS 250 250 ML IV PRN ×3 (04:00→17:01)
[2021-05-24] MEDS: PROPOFOL IV EMULSION 50 ML IV SCH ×5 (04:30→23:20)
[2021-05-24] MEDS: CEFEPIME 2 GM in SODIUM CHLORIDE 0.9% 100 ML IV SCH ×3 (04:40→21:53)
[2021-05-24] MEDS: MIDAZOLAM HCL 5MG/ML 10ML VIAL 100 ML IV PRN ×2 (05:00→19:05)
[2021-05-24 05:15] LABS: BASOPHILS # (AUTO) 0.1 (0.0-0.1); BASOPHILS % 0.7 % (0.0-1.0); EOSINOPHILS # (AUTO) 0.5 (0.0-0.4); EOSINOPHILS % 4.6 % (0.0-6.0); HEMATOCRIT 27.4 % (34.2-44.1); HEMOGLOBIN 8.4 g/dL (12.0-16.0); LYMPHOCYTES # (AUTO) 0.9 (1.0-3.2); MEAN CORPUSCULAR HGB CONC 30.7 g/dL (31-35); MEAN CORPUSCULAR VOLUME 97.9 fL (81-99); MONOCYTES # (AUTO) 0.8 (0.2-0.8); MONOCYTES % 7.6 % (4.4-11.3); NEUTROPHILS # (AUTO) 7.4 (2.1-6.9); NEUTROPHILS % 72.3 % (38.7-80.0); PLATELET COUNT 287 x10e3/uL (140-360); RED CELL DISTRIBUTION WIDTH 15.8 % (11.7-14.4)
[2021-05-24 05:32] LABS: CALCIUM 8.5 mg/dL (8.4-10.2); CREATININE, SERUM 0.4 mg/dL (0.57-1.11)
[2021-05-24] MEDS: ROCURONIUM BROMIDE 1,250 MG in SODIUM CHLORIDE 0.9% 250ML 125 ML IV SCH ×2 (06:00→23:20)
[2021-05-24 08:10] LABS: ABG PCO2 75 mmHg (35-45); ABG PH 7.28 (7.35-7.45); ABG PO2 59 mmHg (80-105)
[2021-05-24 08:11] LABS: ABG HCO3 35 mmol/L (22-26); ABG TCO2 38
[2021-05-24] MEDS: ASCORBIC ACID 500 MG TAB PO SCH ×2 (09:10→16:59)
[2021-05-24] MEDS: FAMOTIDINE 20 MG/2 ML VIAL IV SCH ×2 (09:10→16:59)
[2021-05-24] MEDS: ZINC SULFATE 220 MG CAP PO SCH (09:10)
[2021-05-24] MEDS: EYE LUBRICANT OPTH OINT 3.5GM TUBE OP SCH (09:10)
[2021-05-24] MEDS: BALSAM PERU/CASTOR OIL 60 GM OINT...G. TP SCH (09:10)
[2021-05-24] MEDS: VANCOMYCIN 300 ML IV SCH ×2 (09:10→23:19)
[2021-05-24] MEDS: ENOXAPARIN INJ 80 MG/0.8 ML SYR SC SCH ×2 (09:10→21:53)
[2021-05-24] MEDS: CHOLECALCIFEROL 400 UNIT TAB PO SCH (09:10)
[2021-05-24] MEDS ORDERED: FUROSEMIDE INJ 10 MG/ML 4 ML VIAL IV ONE (10:30)
[2021-05-24] MEDS: ACETAZOLAMIDE 500 MG CAP PO SCH ×2 (11:10→21:53)
[2021-05-24 15:32] LABS: ABG PH 7.27 (7.35-7.45)
[2021-05-24 15:33] LABS: ABG HCO3 39 mmol/L (22-26); ABG PCO2 85 mmHg (35-45); ABG PO2 71 mmHg (80-105); ABG TCO2 41
[2021-05-24] MEDS: INSULIN GLARGINE 100 UNITS/ML VIAL SQ SCH (21:54)
[2021-05-25] VITALS (25 sets, daily range): BP systolic 111–144; BP diastolic 58–79
[2021-05-25] MEDS: METOCLOPRAMIDE HCL 10 MG/2ML VIAL IV SCH ×4 (00:13→17:02)
[2021-05-25] MEDS: FENTANYL 2000MCG/NS 250 250 ML IV PRN ×4 (00:14→22:04)
[2021-05-25] MEDS: MIDAZOLAM HCL 5MG/ML 10ML VIAL 100 ML IV PRN ×5 (00:16→22:04)
[2021-05-25 03:17] LABS: ABG PH 7.28 (7.35-7.45); ABG PO2 77 mmHg (80-105)
[2021-05-25 03:18] LABS: ABG TCO2 41
[2021-05-25 03:21] LABS: ABG PCO2 82 mmHg (35-45)
[2021-05-25] MEDS: PROPOFOL IV EMULSION 50 ML IV SCH ×3 (03:31→18:29)
[2021-05-25] MEDS: CEFEPIME 2 GM in SODIUM CHLORIDE 0.9% 100 ML IV SCH ×3 (04:41→21:10)
[2021-05-25 04:52] LABS: BASOPHILS # (AUTO) 0.1 (0.0-0.1); BASOPHILS % 0.8 % (0.0-1.0); EOSINOPHILS # (AUTO) 0.8 (0.0-0.4); EOSINOPHILS % 5.6 % (0.0-6.0); HEMATOCRIT 28.6 % (34.2-44.1); HEMOGLOBIN 8.7 g/dL (12.0-16.0); LYMPHOCYTES # (AUTO) 0.9 (1.0-3.2); LYMPHOCYTES % 6.4 % (18.0-39.1); MEAN CORPUSCULAR HEMOGLOBIN 29.9 pg (28-32); MEAN CORPUSCULAR HGB CONC 30.4 g/dL (31-35); MEAN CORPUSCULAR VOLUME 98.3 fL (81-99); MONOCYTES # (AUTO) 1.2 (0.2-0.8); MONOCYTES % 8.4 % (4.4-11.3); NEUTROPHILS # (AUTO) 10.1 (2.1-6.9); NEUTROPHILS % 72.7 % (38.7-80.0); PLATELET COUNT 316 x10e3/uL (140-360); RED BLOOD COUNT 2.91 x10e6/uL (3.6-5.1); RED CELL DISTRIBUTION WIDTH 15.7 % (11.7-14.4)
[2021-05-25 05:20] LABS: ALBUMIN/GLOBULIN RATIO 0.5 (0.8-2.0); ANION GAP 11.9 mmol/L (8-16); CALCIUM 8.9 mg/dL (8.4-10.2); CREATININE, SERUM 0.44 mg/dL (0.57-1.11); POTASSIUM 3.9 mmol/L (3.5-5.1)
[2021-05-25] MEDS: INSULIN REGULAR, HUMAN 100 UNIT/1 ML SQ SCH ×4 (05:42→17:56)
[2021-05-25 05:55] LABS: PHOSPHORUS 4.3 MG/DL (2.3-4.7)
[2021-05-25 06:01] LABS: ABG HCO3 39 mmol/L (22-26)
[2021-05-25 07:27] LABS: ABG PCO2 80 mmHg (35-45); ABG PH 7.25 (7.35-7.45)
[2021-05-25 07:28] LABS: ABG HCO3 35 mmol/L (22-26); ABG PO2 72 mmHg (80-105); ABG TCO2 38
[2021-05-25 08:01] LABS: BAND NEUTROPHILS % (MANUAL) 9 %; EOSINOPHILS % (MANUAL) 8 % (0-7); LYMPHOCYTES % (MANUAL) 13 % (19-48); METAMYELOCYTES % (MANUAL) 1 % (0-0); MONOCYTES % (MANUAL) 8 % (3.4-9.0); NEUTROPHILS % (MANUAL) 61 % (40-74)
[2021-05-25 08:03] LABS: PLATELET ESTIMATE ADEQUATE; PLATELET MORPHOLOGY COMMENT NORMAL; RBC MORPHOLOGY COMMENT NORMAL
[2021-05-25] MEDS: EYE LUBRICANT OPTH OINT 3.5GM TUBE OP SCH (08:07)
[2021-05-25] MEDS: FAMOTIDINE 20 MG/2 ML VIAL IV SCH ×2 (08:07→16:59)
[2021-05-25] MEDS: ZINC SULFATE 220 MG CAP PO SCH (08:08)
[2021-05-25] MEDS: ASCORBIC ACID 500 MG TAB PO SCH ×2 (08:08→16:59)
[2021-05-25] MEDS: ACETAZOLAMIDE 500 MG CAP PO SCH (08:08)
[2021-05-25] MEDS: CHOLECALCIFEROL 400 UNIT TAB PO SCH (08:08)
[2021-05-25] MEDS: ENOXAPARIN INJ 80 MG/0.8 ML SYR SC SCH ×2 (08:08→21:10)
[2021-05-25] MEDS: BALSAM PERU/CASTOR OIL 60 GM OINT...G. TP SCH (08:09)
[2021-05-25] MEDS: ALBUMIN 25% 25GM 100ML 0.25 GM/ML BTL IV SCH ×2 (10:18→16:59)
[2021-05-25] MEDS: FUROSEMIDE INJ 10 MG/ML 4 ML VIAL IV SCH ×2 (10:45→21:10)
[2021-05-25] MEDS: VANCOMYCIN 300 ML IV SCH ×2 (11:36→22:03)
[2021-05-25] MEDS: ACETAMINOPHEN 325 MG TAB NG PRN (14:57)
[2021-05-25 15:44] LABS: ABG HCO3 34 mmol/L (22-26); ABG PCO2 56 mmHg (35-45); ABG PO2 166 mmHg (80-105); ABG TCO2 36
[2021-05-25 20:41] LABS: ABG PCO2 57 mmHg (35-45); ABG PH 7.36 (7.35-7.45); ABG PO2 87 mmHg (80-105)
[2021-05-25 20:42] LABS: ABG HCO3 33 mmol/L (22-26); ABG TCO2 34
[2021-05-25] MEDS: INSULIN GLARGINE 100 UNITS/ML VIAL SQ SCH (21:10)
[2021-05-25] MEDS ORDERED: SODIUM CHLORIDE 0.9% 250ML 250 ML ONE (21:11)
[2021-05-25] MEDS: ROCURONIUM BROMIDE 1,250 MG in SODIUM CHLORIDE 0.9% 250ML 125 ML IV SCH (21:39)
[2021-05-26] VITALS (30 sets, daily range): BP systolic 91–164; BP diastolic 56–84
[2021-05-26] MEDS: METOCLOPRAMIDE HCL 10 MG/2ML VIAL IV SCH ×4 (00:18→16:24)
[2021-05-26] MEDS: INSULIN REGULAR, HUMAN 100 UNIT/1 ML SQ SCH ×4 (00:18→18:26)
[2021-05-26] MEDS: PROPOFOL IV EMULSION 50 ML IV SCH ×6 (01:15→19:52)
[2021-05-26] MEDS: ALBUMIN 25% 25GM 100ML 0.25 GM/ML BTL IV SCH (01:15)
[2021-05-26] MEDS: MIDAZOLAM HCL 5MG/ML 10ML VIAL 100 ML IV PRN ×4 (04:09→21:30)
[2021-05-26] MEDS: CEFEPIME 2 GM in SODIUM CHLORIDE 0.9% 100 ML IV SCH ×3 (04:55→21:19)
[2021-05-26] MEDS: FENTANYL 2000MCG/NS 250 250 ML IV PRN ×3 (04:56→18:27)
[2021-05-26 04:58] LABS: BASOPHILS # (AUTO) 0.1 (0.0-0.1); BASOPHILS % 0.6 % (0.0-1.0); EOSINOPHILS # (AUTO) 0.5 (0.0-0.4); EOSINOPHILS % 3.9 % (0.0-6.0); HEMATOCRIT 25.7 % (34.2-44.1); LYMPHOCYTES # (AUTO) 0.9 (1.0-3.2); MEAN CORPUSCULAR HEMOGLOBIN 29.6 pg (28-32); MEAN CORPUSCULAR HGB CONC 31.1 g/dL (31-35); MEAN CORPUSCULAR VOLUME 95.2 fL (81-99); MONOCYTES # (AUTO) 0.9 (0.2-0.8); MONOCYTES % 7.5 % (4.4-11.3); NEUTROPHILS # (AUTO) 8.6 (2.1-6.9); NEUTROPHILS % 74.2 % (38.7-80.0); PLATELET COUNT 303 x10e3/uL (140-360); RED CELL DISTRIBUTION WIDTH 15.4 % (11.7-14.4)
[2021-05-26 05:22] LABS: ALBUMIN 3.1 g/dL (3.5-5.0); ALBUMIN/GLOBULIN RATIO 0.9 (0.8-2.0); ANION GAP 14.1 mmol/L (8-16); CALCIUM 8.8 mg/dL (8.4-10.2); CREATININE, SERUM 0.48 mg/dL (0.57-1.11); POTASSIUM 3.1 mmol/L (3.5-5.1)
[2021-05-26] MEDS ORDERED: POTASSIUM CHLORIDE 20MEQ/100ML 200 ML IV ONE ×2 (06:30→17:00)
[2021-05-26] MEDS ORDERED: FUROSEMIDE INJ 10 MG/ML 4 ML VIAL IV SCH (09:00)
[2021-05-26 10:29] LABS: ABG HCO3 34 mmol/L (22-26); ABG PCO2 56 mmHg (35-45); ABG PH 7.39 (7.35-7.45); ABG PO2 124 mmHg (80-105); ABG TCO2 35
[2021-05-26] MEDS: VANCOMYCIN 300 ML IV SCH ×2 (11:28→23:00)
[2021-05-26] MEDS: ENOXAPARIN INJ 80 MG/0.8 ML SYR SC SCH ×2 (11:28→21:19)
[2021-05-26] MEDS: CHOLECALCIFEROL 400 UNIT TAB PO SCH (11:28)
[2021-05-26] MEDS: EYE LUBRICANT OPTH OINT 3.5GM TUBE OP SCH (11:28)
[2021-05-26] MEDS: BALSAM PERU/CASTOR OIL 60 GM OINT...G. TP SCH ×3 (11:28→22:02)
[2021-05-26] MEDS: FAMOTIDINE 20 MG/2 ML VIAL IV SCH ×2 (11:28→16:23)
[2021-05-26] MEDS: ZINC SULFATE 220 MG CAP PO SCH (11:28)
[2021-05-26] MEDS: FUROSEMIDE INJ 10 MG/ML 4 ML VIAL IV SCH ×2 (11:28→21:19)
[2021-05-26] MEDS: ASCORBIC ACID 500 MG TAB PO SCH ×2 (11:29→16:24)
[2021-05-26] MEDS ORDERED: FUROSEMIDE INJ 10 MG/ML 4 ML VIAL ONE (11:43)
[2021-05-26 18:03] LABS: ABG HCO3 31 mmol/L (22-26); ABG PCO2 58 mmHg (35-45); ABG PH 7.34 (7.35-7.45); ABG PO2 88 mmHg (80-105); ABG TCO2 33
[2021-05-26] MEDS: ROCURONIUM BROMIDE 1,250 MG in SODIUM CHLORIDE 0.9% 250ML 125 ML IV SCH (18:26)
[2021-05-26] MEDS: INSULIN GLARGINE 100 UNITS/ML VIAL SQ SCH (21:00)
[2021-05-27] VITALS (32 sets, daily range): BP systolic 99–151; BP diastolic 58–74
[2021-05-27] MEDS: METOCLOPRAMIDE HCL 10 MG/2ML VIAL IV SCH ×4 (00:55→16:35)
[2021-05-27] MEDS: FENTANYL 2000MCG/NS 250 250 ML IV PRN ×4 (01:35→22:46)
[2021-05-27] MEDS: PROPOFOL IV EMULSION 50 ML IV SCH ×5 (02:45→21:35)
[2021-05-27] MEDS: MIDAZOLAM HCL 5MG/ML 10ML VIAL 100 ML IV PRN ×4 (03:30→21:35)
[2021-05-27 05:27] LABS: BASOPHILS # (AUTO) 0.1 (0.0-0.1); BASOPHILS % 0.7 % (0.0-1.0); EOSINOPHILS # (AUTO) 0.9 (0.0-0.4); EOSINOPHILS % 6.2 % (0.0-6.0); HEMATOCRIT 27.3 % (34.2-44.1); HEMOGLOBIN 8.3 g/dL (12.0-16.0); LYMPHOCYTES % 6.8 % (18.0-39.1); MEAN CORPUSCULAR HEMOGLOBIN 29.3 pg (28-32); MEAN CORPUSCULAR HGB CONC 30.4 g/dL (31-35); MEAN CORPUSCULAR VOLUME 96.5 fL (81-99); MONOCYTES # (AUTO) 1.5 (0.2-0.8); MONOCYTES % 9.8 % (4.4-11.3); NEUTROPHILS # (AUTO) 10.6 (2.1-6.9); NEUTROPHILS % 71.3 % (38.7-80.0); PLATELET COUNT 357 x10e3/uL (140-360); RED BLOOD COUNT 2.83 x10e6/uL (3.6-5.1); RED CELL DISTRIBUTION WIDTH 15.4 % (11.7-14.4)
[2021-05-27] MEDS: CEFEPIME 2 GM in SODIUM CHLORIDE 0.9% 100 ML IV SCH ×2 (05:45→12:07)
[2021-05-27 05:50] LABS: ALBUMIN 2.8 g/dL (3.5-5.0); ALBUMIN/GLOBULIN RATIO 0.8 (0.8-2.0); ANION GAP 15.1 mmol/L (8-16); CREATININE, SERUM 0.49 mg/dL (0.57-1.11); POTASSIUM 4.1 mmol/L (3.5-5.1)
[2021-05-27] MEDS: INSULIN REGULAR, HUMAN 100 UNIT/1 ML SQ SCH ×4 (06:00→17:42)
[2021-05-27] MEDS: BALSAM PERU/CASTOR OIL 60 GM OINT...G. TP SCH ×2 (07:54→21:07)
[2021-05-27] MEDS: EYE LUBRICANT OPTH OINT 3.5GM TUBE OP SCH (07:54)
[2021-05-27] MEDS: ZINC SULFATE 220 MG CAP PO SCH (07:54)
[2021-05-27] MEDS: FAMOTIDINE 20 MG/2 ML VIAL IV SCH ×2 (07:54→16:35)
[2021-05-27] MEDS: ENOXAPARIN INJ 80 MG/0.8 ML SYR SC SCH ×2 (07:54→20:56)
[2021-05-27] MEDS: FUROSEMIDE INJ 10 MG/ML 4 ML VIAL IV SCH (07:54)
[2021-05-27] MEDS: CHOLECALCIFEROL 400 UNIT TAB PO SCH (07:54)
[2021-05-27] MEDS: ASCORBIC ACID 500 MG TAB PO SCH ×2 (07:54→16:35)
[2021-05-27] MEDS: ACETAMINOPHEN 325 MG TAB NG PRN (08:19)
[2021-05-27] MEDS: FLUCONAZOLE 400MG/200ML BAG 200 ML IV SCH (10:30)
[2021-05-27] MEDS ORDERED: ACETAMINOPHEN 1000 MG/100 ML IV PRN (14:45)
[2021-05-27 16:16] LABS: ABG HCO3 36 mmol/L (22-26); ABG PCO2 59 mmHg (35-45); ABG PH 7.39 (7.35-7.45); ABG PO2 119 mmHg (80-105); ABG TCO2 38
[2021-05-27] MEDS ORDERED: ALBUMIN 25% 25GM 100ML 0.25 GM/ML BTL IV NR (16:45)
[2021-05-27 17:08] LABS: ABG PH 7.33 (7.35-7.45)
[2021-05-27 17:09] LABS: ABG HCO3 40 mmol/L (22-26); ABG PCO2 75 mmHg (35-45); ABG PO2 86 mmHg (80-105); ABG TCO2 42
[2021-05-27] MEDS: INSULIN GLARGINE 100 UNITS/ML VIAL SQ SCH (20:57)
[2021-05-28] VITALS (30 sets, daily range): BP systolic 100–115; BP diastolic 57–68
[2021-05-28] MEDS: METOCLOPRAMIDE HCL 10 MG/2ML VIAL IV SCH ×4 (00:11→17:04)
[2021-05-28] MEDS: PROPOFOL IV EMULSION 50 ML IV SCH ×6 (02:52→19:30)
[2021-05-28] MEDS: MIDAZOLAM HCL 5MG/ML 10ML VIAL 100 ML IV PRN ×4 (04:00→23:30)
[2021-05-28] MEDS: INSULIN REGULAR, HUMAN 100 UNIT/1 ML SQ SCH ×4 (06:00→17:21)
[2021-05-28 06:01] LABS: BASOPHILS # (AUTO) 0.1 (0.0-0.1); BASOPHILS % 0.7 % (0.0-1.0); EOSINOPHILS # (AUTO) 1.1 (0.0-0.4); EOSINOPHILS % 8.2 % (0.0-6.0); HEMATOCRIT 26.3 % (34.2-44.1); HEMOGLOBIN 7.8 g/dL (12.0-16.0); LYMPHOCYTES # (AUTO) 1.2 (1.0-3.2); LYMPHOCYTES % 8.8 % (18.0-39.1); MEAN CORPUSCULAR HEMOGLOBIN 29.4 pg (28-32); MEAN CORPUSCULAR HGB CONC 29.7 g/dL (31-35); MEAN CORPUSCULAR VOLUME 99.2 fL (81-99); MONOCYTES # (AUTO) 1.4 (0.2-0.8); MONOCYTES % 10.5 % (4.4-11.3); NEUTROPHILS # (AUTO) 9.1 (2.1-6.9); NEUTROPHILS % 66.5 % (38.7-80.0); PLATELET COUNT 400 x10e3/uL (140-360); RED BLOOD COUNT 2.65 x10e6/uL (3.6-5.1); RED CELL DISTRIBUTION WIDTH 15.6 % (11.7-14.4)
[2021-05-28 06:22] LABS: ALBUMIN 2.8 g/dL (3.5-5.0); ALBUMIN/GLOBULIN RATIO 0.8 (0.8-2.0); ANION GAP 14.8 mmol/L (8-16); CALCIUM 8.7 mg/dL (8.4-10.2); CREATININE, SERUM 0.49 mg/dL (0.57-1.11); POTASSIUM 3.8 mmol/L (3.5-5.1)
[2021-05-28] MEDS: FLUCONAZOLE 400MG/200ML BAG 200 ML IV SCH (07:47)
[2021-05-28] MEDS: ENOXAPARIN INJ 80 MG/0.8 ML SYR SC SCH ×2 (07:47→21:07)
[2021-05-28] MEDS: FAMOTIDINE 20 MG/2 ML VIAL IV SCH ×2 (07:47→17:04)
[2021-05-28] MEDS: EYE LUBRICANT OPTH OINT 3.5GM TUBE OP SCH (07:47)
[2021-05-28] MEDS: BALSAM PERU/CASTOR OIL 60 GM OINT...G. TP SCH ×2 (07:47→22:00)
[2021-05-28] MEDS: CHOLECALCIFEROL 400 UNIT TAB PO SCH (07:47)
[2021-05-28] MEDS: ASCORBIC ACID 500 MG TAB PO SCH ×2 (07:47→17:04)
[2021-05-28] MEDS: ZINC SULFATE 220 MG CAP PO SCH (07:47)
[2021-05-28 08:40] LABS: ABG PH 7.34 (7.35-7.45)
[2021-05-28 08:42] LABS: ABG HCO3 40 mmol/L (22-26); ABG PCO2 75 mmHg (35-45); ABG PO2 95 mmHg (80-105); ABG TCO2 42
[2021-05-28] MEDS: ROCURONIUM BROMIDE 1,250 MG in SODIUM CHLORIDE 0.9% 250ML 125 ML IV SCH (12:10)
[2021-05-28] MEDS: FENTANYL 2000MCG/NS 250 250 ML IV PRN ×3 (12:22→19:30)
[2021-05-28] MEDS: POTASSIUM CHLORIDE 20MEQ/100ML 100 ML IV PRN (12:23)
[2021-05-28 16:25] LABS: ABG PCO2 83 mmHg (35-45); ABG PO2 80 mmHg (80-105)
[2021-05-28 16:26] LABS: ABG HCO3 41 mmol/L (22-26); ABG TCO2 43
[2021-05-28] MEDS ORDERED: SODIUM CHLORIDE 0.9% 250ML 250 ML ONE (18:45)
[2021-05-28] MEDS: INSULIN GLARGINE 100 UNITS/ML VIAL SQ SCH ×2 (21:00→22:00)
[2021-05-29] VITALS (25 sets, daily range): BP systolic 107–139; BP diastolic 63–75
[2021-05-29] MEDS: METOCLOPRAMIDE HCL 10 MG/2ML VIAL IV SCH ×5 (01:00→23:53)
[2021-05-29] MEDS: INSULIN REGULAR, HUMAN 100 UNIT/1 ML SQ SCH ×5 (02:10→23:53)
[2021-05-29 04:54] LABS: BASOPHILS # (AUTO) 0.1 (0.0-0.1); BASOPHILS % 0.6 % (0.0-1.0); EOSINOPHILS # (AUTO) 1.4 (0.0-0.4); EOSINOPHILS % 10.2 % (0.0-6.0); HEMOGLOBIN 7.6 g/dL (12.0-16.0); LYMPHOCYTES # (AUTO) 1.6 (1.0-3.2); LYMPHOCYTES % 11.8 % (18.0-39.1); MEAN CORPUSCULAR HEMOGLOBIN 29.2 pg (28-32); MEAN CORPUSCULAR HGB CONC 29.2 g/dL (31-35); MONOCYTES # (AUTO) 1.3 (0.2-0.8); MONOCYTES % 9.4 % (4.4-11.3); NEUTROPHILS # (AUTO) 8.4 (2.1-6.9); NEUTROPHILS % 62.8 % (38.7-80.0); PLATELET COUNT 359 x10e3/uL (140-360); RED CELL DISTRIBUTION WIDTH 15.6 % (11.7-14.4)
[2021-05-29 05:21] LABS: ALBUMIN 2.5 g/dL (3.5-5.0); ALBUMIN/GLOBULIN RATIO 0.7 (0.8-2.0); ANION GAP 12.1 mmol/L (8-16); CALCIUM 8.7 mg/dL (8.4-10.2); CREATININE, SERUM 0.47 mg/dL (0.57-1.11); POTASSIUM 4.1 mmol/L (3.5-5.1)
[2021-05-29] MEDS: MIDAZOLAM HCL 5MG/ML 10ML VIAL 100 ML IV PRN ×3 (05:52→19:01)
[2021-05-29 07:54] LABS: ABG PH 7.37 (7.35-7.45)
[2021-05-29 07:55] LABS: ABG HCO3 43 mmol/L (22-26); ABG PCO2 75 mmHg (35-45); ABG PO2 80 mmHg (80-105); ABG TCO2 46
[2021-05-29] MEDS: EYE LUBRICANT OPTH OINT 3.5GM TUBE OP SCH (09:00)
[2021-05-29] MEDS: FENTANYL 2000MCG/NS 250 250 ML IV PRN ×2 (09:08→23:08)
[2021-05-29] MEDS: ASCORBIC ACID 500 MG TAB PO SCH ×2 (09:15→17:58)
[2021-05-29] MEDS: FAMOTIDINE 20 MG/2 ML VIAL IV SCH ×2 (09:15→17:58)
[2021-05-29] MEDS: ZINC SULFATE 220 MG CAP PO SCH (09:16)
[2021-05-29] MEDS: ENOXAPARIN INJ 80 MG/0.8 ML SYR SC SCH ×2 (09:16→20:03)
[2021-05-29] MEDS: FLUCONAZOLE 400MG/200ML BAG 200 ML IV SCH (09:16)
[2021-05-29] MEDS: CHOLECALCIFEROL 400 UNIT TAB PO SCH (09:16)
[2021-05-29] MEDS: BALSAM PERU/CASTOR OIL 60 GM OINT...G. TP SCH ×2 (09:16→22:06)
[2021-05-29] MEDS: ROCURONIUM BROMIDE 1,250 MG in SODIUM CHLORIDE 0.9% 250ML 125 ML IV SCH (09:17)
[2021-05-29] MEDS: PROPOFOL IV EMULSION 50 ML IV SCH ×2 (12:42→12:44)
[2021-05-29] MEDS ORDERED: FUROSEMIDE INJ 10 MG/ML 4 ML VIAL IV ONE (15:45)
[2021-05-29] MEDS ORDERED: ALBUMIN 25% 25GM 100ML 0.25 GM/ML BTL IV ONE (15:45)
[2021-05-29] MEDS: HEPARIN SOD/SOD CHLORIDE 1,000 ML IV SCH (17:57)
[2021-05-29] MEDS: INSULIN GLARGINE 100 UNITS/ML VIAL SQ SCH (20:02)
[2021-05-29 20:12] LABS: ABG PH 7.37 (7.35-7.45)
[2021-05-29 20:13] LABS: ABG HCO3 46 mmol/L (22-26); ABG PCO2 80 mmHg (35-45); ABG PO2 108 mmHg (80-105); ABG TCO2 49
[2021-05-30] VITALS (25 sets, daily range): BP systolic 107–143; BP diastolic 61–72
[2021-05-30] MEDS: MIDAZOLAM HCL 5MG/ML 10ML VIAL 100 ML IV PRN ×3 (01:16→12:15)
[2021-05-30] MEDS: PROPOFOL IV EMULSION 50 ML IV SCH ×5 (03:39→22:54)
[2021-05-30] MEDS: ROCURONIUM BROMIDE 1,250 MG in SODIUM CHLORIDE 0.9% 250ML 125 ML IV SCH (04:35)
[2021-05-30 04:49] LABS: BASOPHILS # (AUTO) 0.1 (0.0-0.1); BASOPHILS % 0.7 % (0.0-1.0); EOSINOPHILS # (AUTO) 1.5 (0.0-0.4); EOSINOPHILS % 11.3 % (0.0-6.0); HEMATOCRIT 25.4 % (34.2-44.1); HEMOGLOBIN 7.4 g/dL (12.0-16.0); LYMPHOCYTES # (AUTO) 1.3 (1.0-3.2); LYMPHOCYTES % 9.3 % (18.0-39.1); MEAN CORPUSCULAR HGB CONC 29.1 g/dL (31-35); MEAN CORPUSCULAR VOLUME 99.6 fL (81-99); MONOCYTES # (AUTO) 1.1 (0.2-0.8); MONOCYTES % 8.3 % (4.4-11.3); NEUTROPHILS # (AUTO) 8.9 (2.1-6.9); NEUTROPHILS % 65.1 % (38.7-80.0); PLATELET COUNT 458 x10e3/uL (140-360); RED BLOOD COUNT 2.55 x10e6/uL (3.6-5.1); RED CELL DISTRIBUTION WIDTH 15.6 % (11.7-14.4)
[2021-05-30 05:07] LABS: ALBUMIN 2.7 g/dL (3.5-5.0); ALBUMIN/GLOBULIN RATIO 0.7 (0.8-2.0); ANION GAP 12.9 mmol/L (8-16); CALCIUM 8.8 mg/dL (8.4-10.2); CREATININE, SERUM 0.44 mg/dL (0.57-1.11); POTASSIUM 3.9 mmol/L (3.5-5.1)
[2021-05-30] MEDS: INSULIN REGULAR, HUMAN 100 UNIT/1 ML SQ SCH ×3 (05:27→17:04)
[2021-05-30] MEDS: METOCLOPRAMIDE HCL 10 MG/2ML VIAL IV SCH ×3 (05:27→17:07)
[2021-05-30] MEDS: FENTANYL 2000MCG/NS 250 250 ML IV PRN ×3 (05:54→20:37)
[2021-05-30 07:01] LABS: ABG PH 7.36 (7.35-7.45)
[2021-05-30 07:02] LABS: ABG HCO3 46 mmol/L (22-26); ABG PCO2 80 mmHg (35-45); ABG PO2 125 mmHg (80-105); ABG TCO2 48
[2021-05-30] MEDS: ACETAZOLAMIDE 500 MG CAP PO SCH ×2 (08:22→20:34)
[2021-05-30] MEDS: ENOXAPARIN INJ 80 MG/0.8 ML SYR SC SCH ×2 (08:23→20:34)
[2021-05-30] MEDS: CHOLECALCIFEROL 400 UNIT TAB PO SCH (08:23)
[2021-05-30] MEDS: ZINC SULFATE 220 MG CAP PO SCH (08:23)
[2021-05-30] MEDS: EYE LUBRICANT OPTH OINT 3.5GM TUBE OP SCH (08:23)
[2021-05-30] MEDS: ASCORBIC ACID 500 MG TAB PO SCH ×2 (08:23→17:06)
[2021-05-30] MEDS: FAMOTIDINE 20 MG/2 ML VIAL IV SCH ×2 (08:23→17:06)
[2021-05-30] MEDS: FLUCONAZOLE 400MG/200ML BAG 200 ML IV SCH (08:24)
[2021-05-30 09:56] LABS: BAND NEUTROPHILS % (MANUAL) 1 %; EOSINOPHILS % (MANUAL) 17 % (0-7); LYMPHOCYTES % (MANUAL) 11 % (19-48); MONOCYTES % (MANUAL) 5 % (3.4-9.0); MYELOCYTES % (MANUAL) 4 % (0-0); NEUTROPHILS % (MANUAL) 62 % (40-74)
[2021-05-30 09:57] LABS: PLATELET ESTIMATE ADEQUATE; PLATELET MORPHOLOGY COMMENT NORMAL; RBC MORPHOLOGY COMMENT NORMAL
[2021-05-30] MEDS: BALSAM PERU/CASTOR OIL 60 GM OINT...G. TP SCH ×2 (10:00→21:30)
[2021-05-30 15:59] LABS: ABG HCO3 43 mmol/L (22-26); ABG PCO2 71 mmHg (35-45); ABG PH 7.39 (7.35-7.45); ABG PO2 103 mmHg (80-105); ABG TCO2 45
[2021-05-30] MEDS: HEPARIN SOD/SOD CHLORIDE 1,000 ML IV SCH (17:06)
[2021-05-30] MEDS ORDERED: MINERAL OIL 132 ML BTL PR NR (19:15)
[2021-05-30] MEDS: INSULIN GLARGINE 100 UNITS/ML VIAL SQ SCH (20:37)
[2021-05-31] VITALS (30 sets, daily range): BP systolic 97–143; BP diastolic 52–86
[2021-05-31] MEDS: METOCLOPRAMIDE HCL 10 MG/2ML VIAL IV SCH ×5 (00:19→23:38)
[2021-05-31] MEDS: INSULIN REGULAR, HUMAN 100 UNIT/1 ML SQ SCH ×5 (00:21→23:38)
[2021-05-31] MEDS: FENTANYL 2000MCG/NS 250 250 ML IV PRN ×3 (02:46→16:07)
[2021-05-31] MEDS: MIDAZOLAM HCL 5MG/ML 10ML VIAL 100 ML IV PRN ×4 (03:27→22:40)
[2021-05-31] MEDS: PROPOFOL IV EMULSION 50 ML IV SCH ×6 (04:54→23:16)
[2021-05-31 05:22] LABS: BASOPHILS # (AUTO) 0.1 (0.0-0.1); BASOPHILS % 0.8 % (0.0-1.0); EOSINOPHILS # (AUTO) 1.9 (0.0-0.4); EOSINOPHILS % 14.4 % (0.0-6.0); HEMATOCRIT 26.3 % (34.2-44.1); HEMOGLOBIN 7.6 g/dL (12.0-16.0); LYMPHOCYTES # (AUTO) 1.5 (1.0-3.2); LYMPHOCYTES % 11.2 % (18.0-39.1); MEAN CORPUSCULAR HEMOGLOBIN 28.6 pg (28-32); MEAN CORPUSCULAR HGB CONC 28.9 g/dL (31-35); MEAN CORPUSCULAR VOLUME 98.9 fL (81-99); MONOCYTES # (AUTO) 0.9 (0.2-0.8); MONOCYTES % 6.4 % (4.4-11.3); NEUTROPHILS # (AUTO) 8.3 (2.1-6.9); NEUTROPHILS % 62.3 % (38.7-80.0); PLATELET COUNT 549 x10e3/uL (140-360); RED BLOOD COUNT 2.66 x10e6/uL (3.6-5.1); RED CELL DISTRIBUTION WIDTH 15.7 % (11.7-14.4)
[2021-05-31 06:09] LABS: ALBUMIN 2.5 g/dL (3.5-5.0); ALBUMIN/GLOBULIN RATIO 0.7 (0.8-2.0); ANION GAP 9.7 mmol/L (8-16); CALCIUM 8.9 mg/dL (8.4-10.2); CREATININE, SERUM 0.46 mg/dL (0.57-1.11); POTASSIUM 3.7 mmol/L (3.5-5.1)
[2021-05-31 06:43] LABS: ABG HCO3 40 mmol/L (22-26); ABG PCO2 64 mmHg (35-45); ABG PO2 104 mmHg (80-105); ABG TCO2 42
[2021-05-31] MEDS: ZINC SULFATE 220 MG CAP PO SCH (09:01)
[2021-05-31] MEDS: ENOXAPARIN INJ 80 MG/0.8 ML SYR SC SCH ×2 (09:01→21:05)
[2021-05-31] MEDS: ASCORBIC ACID 500 MG TAB PO SCH ×2 (09:01→16:06)
[2021-05-31] MEDS: BALSAM PERU/CASTOR OIL 60 GM OINT...G. TP SCH ×2 (09:01)
[2021-05-31] MEDS: FLUCONAZOLE 400MG/200ML BAG 200 ML IV SCH (09:01)
[2021-05-31] MEDS: ACETAZOLAMIDE 500 MG CAP PO SCH ×2 (09:01→17:23)
[2021-05-31] MEDS: EYE LUBRICANT OPTH OINT 3.5GM TUBE OP SCH (09:01)
[2021-05-31] MEDS: FAMOTIDINE 20 MG/2 ML VIAL IV SCH ×2 (09:01→16:06)
[2021-05-31] MEDS: CHOLECALCIFEROL 400 UNIT TAB PO SCH (09:02)
[2021-05-31] MEDS: FUROSEMIDE INJ 10 MG/ML 4 ML VIAL IV SCH ×2 (09:49→21:05)
[2021-05-31] MEDS: ALBUMIN 25% 25GM 100ML 0.25 GM/ML BTL IV SCH ×3 (09:51→22:50)
[2021-05-31] MEDS: ROCURONIUM BROMIDE 1,250 MG in SODIUM CHLORIDE 0.9% 250ML 125 ML IV SCH ×2 (15:15→22:37)
[2021-05-31 15:44] LABS: ABG HCO3 38 mmol/L (22-26); ABG PCO2 73 mmHg (35-45); ABG PH 7.33 (7.35-7.45); ABG PO2 144 mmHg (80-105)
[2021-05-31 15:45] LABS: ABG TCO2 40
[2021-05-31] MEDS: HEPARIN SOD/SOD CHLORIDE 1,000 ML IV SCH (17:23)
[2021-05-31] MEDS: POTASSIUM CHLORIDE 20MEQ/100ML 100 ML IV PRN (18:38)
[2021-05-31] MEDS: INSULIN GLARGINE 100 UNITS/ML VIAL SQ SCH (21:06)
[2021-06-01] VITALS (30 sets, daily range): BP systolic 100–137; BP diastolic 63–82
[2021-06-01] MEDS ORDERED: FENTANYL 2000MCG/NS 250 250 ML ONE (00:50)
[2021-06-01] MEDS: FENTANYL 2000MCG/NS 250 250 ML IV PRN ×4 (01:02→21:30)
[2021-06-01] MEDS: PROPOFOL IV EMULSION 50 ML IV SCH ×3 (04:19→16:43)
[2021-06-01] MEDS: MIDAZOLAM HCL 5MG/ML 10ML VIAL 100 ML IV PRN ×4 (04:43→23:21)
[2021-06-01 05:11] LABS: BASOPHILS # (AUTO) 0.1 (0.0-0.1); BASOPHILS % 0.6 % (0.0-1.0); EOSINOPHILS # (AUTO) 1.7 (0.0-0.4); EOSINOPHILS % 13.2 % (0.0-6.0); HEMATOCRIT 24.5 % (34.2-44.1); HEMOGLOBIN 7.2 g/dL (12.0-16.0); LYMPHOCYTES # (AUTO) 1.2 (1.0-3.2); LYMPHOCYTES % 9.5 % (18.0-39.1); MEAN CORPUSCULAR HEMOGLOBIN 28.8 pg (28-32); MEAN CORPUSCULAR HGB CONC 29.4 g/dL (31-35); MONOCYTES # (AUTO) 0.8 (0.2-0.8); MONOCYTES % 6.5 % (4.4-11.3); NEUTROPHILS # (AUTO) 8.2 (2.1-6.9); NEUTROPHILS % 64.9 % (38.7-80.0); PLATELET COUNT 525 x10e3/uL (140-360); RED CELL DISTRIBUTION WIDTH 15.9 % (11.7-14.4)
[2021-06-01] MEDS: METOCLOPRAMIDE HCL 10 MG/2ML VIAL IV SCH ×3 (05:17→17:11)
[2021-06-01 05:28] LABS: ALBUMIN 3.4 g/dL (3.5-5.0); ANION GAP 13.5 mmol/L (8-16); CALCIUM 9.6 mg/dL (8.4-10.2); CREATININE, SERUM 0.51 mg/dL (0.57-1.11); POTASSIUM 3.5 mmol/L (3.5-5.1)
[2021-06-01] MEDS: INSULIN REGULAR, HUMAN 100 UNIT/1 ML SQ SCH ×3 (06:33→17:27)
[2021-06-01 08:16] LABS: ABG HCO3 34 mmol/L (22-26); ABG PCO2 54 mmHg (35-45); ABG PH 7.41 (7.35-7.45); ABG PO2 96 mmHg (80-105); ABG TCO2 36
[2021-06-01] MEDS: FAMOTIDINE 20 MG/2 ML VIAL IV SCH ×2 (09:17→16:03)
[2021-06-01] MEDS: FUROSEMIDE INJ 10 MG/ML 4 ML VIAL IV SCH ×3 (09:17→21:49)
[2021-06-01] MEDS: BALSAM PERU/CASTOR OIL 60 GM OINT...G. TP SCH (09:18)
[2021-06-01] MEDS: ASCORBIC ACID 500 MG TAB PO SCH ×2 (09:18→16:03)
[2021-06-01] MEDS: CHOLECALCIFEROL 400 UNIT TAB PO SCH (09:18)
[2021-06-01] MEDS: FLUCONAZOLE 400MG/200ML BAG 200 ML IV SCH (09:18)
[2021-06-01] MEDS: ZINC SULFATE 220 MG CAP PO SCH (09:18)
[2021-06-01] MEDS: ENOXAPARIN INJ 80 MG/0.8 ML SYR SC SCH ×2 (09:18→21:49)
[2021-06-01] MEDS: EYE LUBRICANT OPTH OINT 3.5GM TUBE OP SCH (09:18)
[2021-06-01] MEDS: POTASSIUM CHLORIDE 20MEQ/100ML 100 ML IV PRN (10:32)
[2021-06-01] MEDS: ACETAZOLAMIDE 250 MG TAB PO SCH ×2 (10:33→21:49)
[2021-06-01] MEDS: ACETAMINOPHEN 325 MG TAB NG PRN (10:41)
[2021-06-01] MEDS ORDERED: POTASSIUM CHLORIDE 20MEQ/100ML 200 ML IV ONE (11:00)
[2021-06-01] MEDS: CEFEPIME 1 GM in SODIUM CHLORIDE 0.9% 50ML 50 ML IV SCH ×2 (13:21→21:50)
[2021-06-01] MEDS: HEPARIN SOD/SOD CHLORIDE 1,000 ML IV SCH (16:02)
[2021-06-01 16:40] LABS: ABG HCO3 35 mmol/L (22-26); ABG PCO2 58 mmHg (35-45); ABG PH 7.38 (7.35-7.45); ABG PO2 86 mmHg (80-105); ABG TCO2 36
[2021-06-01] MEDS: INSULIN GLARGINE 100 UNITS/ML VIAL SQ SCH (21:50)
[2021-06-02] VITALS (30 sets, daily range): BP systolic 104–130; BP diastolic 56–73
[2021-06-02] MEDS: METOCLOPRAMIDE HCL 10 MG/2ML VIAL IV SCH ×4 (00:12→17:33)
[2021-06-02] MEDS: INSULIN REGULAR, HUMAN 100 UNIT/1 ML SQ SCH ×4 (00:28→17:34)
[2021-06-02] MEDS: ACETAMINOPHEN 325 MG TAB NG PRN ×2 (00:29→08:41)
[2021-06-02] MEDS: ROCURONIUM BROMIDE 1,250 MG in SODIUM CHLORIDE 0.9% 250ML 125 ML IV SCH (00:29)
[2021-06-02] MEDS: PROPOFOL IV EMULSION 50 ML IV SCH ×4 (01:24→13:27)
[2021-06-02] MEDS: FENTANYL 2000MCG/NS 250 250 ML IV PRN ×3 (04:48→18:35)
[2021-06-02 05:07] LABS: BASOPHILS # (AUTO) 0.1 (0.0-0.1); BASOPHILS % 0.7 % (0.0-1.0); EOSINOPHILS # (AUTO) 1.2 (0.0-0.4); EOSINOPHILS % 7.4 % (0.0-6.0); HEMATOCRIT 26.5 % (34.2-44.1); LYMPHOCYTES # (AUTO) 1.6 (1.0-3.2); LYMPHOCYTES % 9.6 % (18.0-39.1); MEAN CORPUSCULAR HGB CONC 30.2 g/dL (31-35); MONOCYTES # (AUTO) 0.9 (0.2-0.8); MONOCYTES % 5.3 % (4.4-11.3); NEUTROPHILS # (AUTO) 11.9 (2.1-6.9); PLATELET COUNT 639 x10e3/uL (140-360); RED BLOOD COUNT 2.76 x10e6/uL (3.6-5.1); RED CELL DISTRIBUTION WIDTH 15.8 % (11.7-14.4)
[2021-06-02] MEDS: MIDAZOLAM HCL 5MG/ML 10ML VIAL 100 ML IV PRN ×3 (05:30→18:36)
[2021-06-02 05:31] LABS: ALBUMIN 3.1 g/dL (3.5-5.0); ALBUMIN/GLOBULIN RATIO 0.8 (0.8-2.0); ANION GAP 14.7 mmol/L (8-16); CALCIUM 9.2 mg/dL (8.4-10.2); CREATININE, SERUM 0.5 mg/dL (0.57-1.11); POTASSIUM 3.7 mmol/L (3.5-5.1)
[2021-06-02] MEDS: CEFEPIME 1 GM in SODIUM CHLORIDE 0.9% 50ML 50 ML IV SCH ×3 (05:49→22:20)
[2021-06-02 07:28] LABS: BAND NEUTROPHILS % (MANUAL) 3 %; EOSINOPHILS % (MANUAL) 5 % (0-7); LYMPHOCYTES % (MANUAL) 8 % (19-48); MONOCYTES % (MANUAL) 5 % (3.4-9.0); MYELOCYTES % (MANUAL) 6 % (0-0); NEUTROPHILS % (MANUAL) 73 % (40-74); PLATELET ESTIMATE MODERATELY INCREASED; RBC MORPHOLOGY COMMENT NORMAL
[2021-06-02 07:29] LABS: PLATELET MORPHOLOGY COMMENT FEW LARGE
[2021-06-02 07:30] LABS: PLATELET CLUMPS FEW
[2021-06-02] MEDS: FAMOTIDINE 20 MG/2 ML VIAL IV SCH ×2 (08:39→17:33)
[2021-06-02] MEDS: ACETAZOLAMIDE 250 MG TAB PO SCH (08:39)
[2021-06-02] MEDS: FUROSEMIDE INJ 10 MG/ML 4 ML VIAL IV SCH (08:39)
[2021-06-02] MEDS: EYE LUBRICANT OPTH OINT 3.5GM TUBE OP SCH (08:39)
[2021-06-02] MEDS: ASCORBIC ACID 500 MG TAB PO SCH ×2 (08:40→17:33)
[2021-06-02] MEDS: ZINC SULFATE 220 MG CAP PO SCH (08:40)
[2021-06-02] MEDS: FLUCONAZOLE 400MG/200ML BAG 200 ML IV SCH (08:40)
[2021-06-02] MEDS: CHOLECALCIFEROL 400 UNIT TAB PO SCH (08:40)
[2021-06-02] MEDS: BALSAM PERU/CASTOR OIL 60 GM OINT...G. TP SCH (08:40)
[2021-06-02] MEDS: ENOXAPARIN INJ 80 MG/0.8 ML SYR SC SCH ×2 (08:40→22:20)
[2021-06-02 09:07] LABS: ABG HCO3 36 mmol/L (22-26); ABG PCO2 52 mmHg (35-45); ABG PH 7.44 (7.35-7.45); ABG PO2 134 mmHg (80-105); ABG TCO2 37
[2021-06-02] MEDS ORDERED: Vancomycin IV 1 GM in SODIUM CHLORIDE 0.9% 250ML 250 ML IV ONE (11:00)
[2021-06-02] MEDS ORDERED: Vancomycin IV 1.25 GM in SODIUM CHLORIDE 0.9% 250ML 250 ML IV SCH ×2 (14:00→23:00)
[2021-06-02 16:27] LABS: ABG HCO3 32 mmol/L (22-26); ABG PCO2 42 mmHg (35-45); ABG PH 7.49 (7.35-7.45); ABG PO2 177 mmHg (80-105); ABG TCO2 33
[2021-06-02] MEDS: HEPARIN SOD/SOD CHLORIDE 1,000 ML IV SCH (16:46)
[2021-06-02] MEDS: PROPOFOL IV EMULSION 10MG/ML 100 ML IV SCH (20:10)
[2021-06-02] MEDS: INSULIN GLARGINE 100 UNITS/ML VIAL SQ SCH (22:20)
[2021-06-02] MEDS: Vancomycin IV 1.25 GM in SODIUM CHLORIDE 0.9% 250ML 250 ML IV SCH (23:37)
[2021-06-03] VITALS (19 sets, daily range): BP systolic 96–131; BP diastolic 9–73
[2021-06-03] MEDS: METOCLOPRAMIDE HCL 10 MG/2ML VIAL IV SCH ×4 (00:07→17:25)
[2021-06-03] MEDS: MIDAZOLAM HCL 5MG/ML 10ML VIAL 100 ML IV PRN ×4 (01:13→21:30)
[2021-06-03 04:49] LABS: BASOPHILS # (AUTO) 0.1 (0.0-0.1); BASOPHILS % 0.8 % (0.0-1.0); EOSINOPHILS # (AUTO) 1.5 (0.0-0.4); EOSINOPHILS % 10.3 % (0.0-6.0); HEMATOCRIT 25.1 % (34.2-44.1); HEMOGLOBIN 7.6 g/dL (12.0-16.0); LYMPHOCYTES # (AUTO) 1.6 (1.0-3.2); LYMPHOCYTES % 10.9 % (18.0-39.1); MEAN CORPUSCULAR HEMOGLOBIN 28.7 pg (28-32); MEAN CORPUSCULAR HGB CONC 30.3 g/dL (31-35); MEAN CORPUSCULAR VOLUME 94.7 fL (81-99); MONOCYTES # (AUTO) 1.1 (0.2-0.8); MONOCYTES % 7.3 % (4.4-11.3); NEUTROPHILS # (AUTO) 9.5 (2.1-6.9); NEUTROPHILS % 64.3 % (38.7-80.0); PLATELET COUNT 746 x10e3/uL (140-360); RED BLOOD COUNT 2.65 x10e6/uL (3.6-5.1); RED CELL DISTRIBUTION WIDTH 15.8 % (11.7-14.4)
[2021-06-03 05:23] LABS: ALBUMIN 2.7 g/dL (3.5-5.0); ALBUMIN/GLOBULIN RATIO 0.7 (0.8-2.0); ANION GAP 12.2 mmol/L (8-16); CREATININE, SERUM 0.43 mg/dL (0.57-1.11); POTASSIUM 3.2 mmol/L (3.5-5.1)
[2021-06-03] MEDS: CEFEPIME 1 GM in SODIUM CHLORIDE 0.9% 50ML 50 ML IV SCH ×3 (05:46→21:28)
[2021-06-03] MEDS: INSULIN REGULAR, HUMAN 100 UNIT/1 ML SQ SCH ×4 (05:49→17:17)
[2021-06-03] MEDS: PROPOFOL IV EMULSION 10MG/ML 100 ML IV SCH ×2 (07:47→18:00)
[2021-06-03 08:00] LABS: ABG HCO3 33 mmol/L (22-26); ABG PCO2 50 mmHg (35-45); ABG PH 7.43 (7.35-7.45); ABG PO2 122 mmHg (80-105); ABG TCO2 35
[2021-06-03 08:12] LABS: BAND NEUTROPHILS % (MANUAL) 3 %; EOSINOPHILS % (MANUAL) 9 % (0-7); LYMPHOCYTES % (MANUAL) 8 % (19-48); MONOCYTES % (MANUAL) 6 % (3.4-9.0); NEUTROPHILS % (MANUAL) 74 % (40-74); PLATELET MORPHOLOGY COMMENT NORMAL
[2021-06-03 08:14] LABS: PLATELET ESTIMATE MARKEDLY INCREASED
[2021-06-03] MEDS: ASCORBIC ACID 500 MG TAB PO SCH ×2 (09:01→17:22)
[2021-06-03] MEDS: BALSAM PERU/CASTOR OIL 60 GM OINT...G. TP SCH (09:01)
[2021-06-03] MEDS: FAMOTIDINE 20 MG/2 ML VIAL IV SCH ×2 (09:01→17:22)
[2021-06-03] MEDS: FLUCONAZOLE 400MG/200ML BAG 200 ML IV SCH (09:01)
[2021-06-03] MEDS: ZINC SULFATE 220 MG CAP PO SCH (09:01)
[2021-06-03] MEDS: EYE LUBRICANT OPTH OINT 3.5GM TUBE OP SCH (09:01)
[2021-06-03] MEDS: ENOXAPARIN INJ 80 MG/0.8 ML SYR SC SCH ×2 (09:01→21:28)
[2021-06-03] MEDS: CHOLECALCIFEROL 400 UNIT TAB PO SCH (09:02)
[2021-06-03] MEDS: POTASSIUM CHLORIDE 10MEQ/100ML 100 ML IV SCH ×2 (09:05→09:06)
[2021-06-03] MEDS: FENTANYL 2000MCG/NS 250 250 ML IV PRN ×3 (09:47→23:20)
[2021-06-03] MEDS ORDERED: LACTULOSE SYRUP 20 GM/30 ML UDC PO ONE (11:15)
[2021-06-03] MEDS: Vancomycin IV 1.25 GM in SODIUM CHLORIDE 0.9% 250ML 250 ML IV SCH ×2 (11:48→22:37)
[2021-06-03] MEDS: ROCURONIUM BROMIDE 1,250 MG in SODIUM CHLORIDE 0.9% 250ML 125 ML IV SCH (15:15)
[2021-06-03 15:17] LABS: ABG HCO3 34 mmol/L (22-26); ABG PCO2 56 mmHg (35-45); ABG PO2 71 mmHg (80-105); ABG TCO2 36
[2021-06-03] MEDS: HEPARIN SOD/SOD CHLORIDE 1,000 ML IV SCH (17:45)
[2021-06-03] MEDS: INSULIN GLARGINE 100 UNITS/ML VIAL SQ SCH (21:28)
[2021-06-03] MEDS ORDERED: MIDAZOLAM HCL 5MG/ML 10ML VIAL 100 ML IV ONE (21:35)
[2021-06-04] VITALS (16 sets, daily range): BP systolic 115–131; BP diastolic 67–80
[2021-06-04] MEDS: METOCLOPRAMIDE HCL 10 MG/2ML VIAL IV SCH ×4 (00:17→17:54)
[2021-06-04] MEDS: INSULIN REGULAR, HUMAN 100 UNIT/1 ML SQ SCH ×4 (00:17→17:54)
[2021-06-04] MEDS: PROPOFOL IV EMULSION 10MG/ML 100 ML IV SCH ×5 (00:18→19:48)
[2021-06-04] MEDS: ACETAMINOPHEN 325 MG TAB NG PRN (03:17)
[2021-06-04 06:09] LABS: BASOPHILS # (AUTO) 0.2 (0.0-0.1); BASOPHILS % 0.9 % (0.0-1.0); EOSINOPHILS # (AUTO) 2.1 (0.0-0.4); EOSINOPHILS % 12.8 % (0.0-6.0); HEMATOCRIT 25.2 % (34.2-44.1); HEMOGLOBIN 7.5 g/dL (12.0-16.0); LYMPHOCYTES # (AUTO) 1.4 (1.0-3.2); MEAN CORPUSCULAR HEMOGLOBIN 28.8 pg (28-32); MEAN CORPUSCULAR HGB CONC 29.8 g/dL (31-35); MEAN CORPUSCULAR VOLUME 96.9 fL (81-99); MONOCYTES # (AUTO) 1.2 (0.2-0.8); MONOCYTES % 7.7 % (4.4-11.3); NEUTROPHILS # (AUTO) 10.4 (2.1-6.9); NEUTROPHILS % 64.9 % (38.7-80.0); PLATELET COUNT 762 x10e3/uL (140-360); RED CELL DISTRIBUTION WIDTH 15.9 % (11.7-14.4)
[2021-06-04 06:19] LABS: ALBUMIN 2.4 g/dL (3.5-5.0); ALBUMIN/GLOBULIN RATIO 0.6 (0.8-2.0); ANION GAP 12.2 mmol/L (8-16); CALCIUM 9.1 mg/dL (8.4-10.2); CREATININE, SERUM 0.48 mg/dL (0.57-1.11); POTASSIUM 4.2 mmol/L (3.5-5.1)
[2021-06-04] MEDS: CEFEPIME 1 GM in SODIUM CHLORIDE 0.9% 50ML 50 ML IV SCH ×3 (06:22→21:47)
[2021-06-04] MEDS: FENTANYL 2000MCG/NS 250 250 ML IV PRN ×3 (06:50→19:48)
[2021-06-04 08:33] LABS: ABG PCO2 63 mmHg (35-45); ABG PH 7.31 (7.35-7.45)
[2021-06-04 08:34] LABS: ABG HCO3 32 mmol/L (22-26); ABG PO2 68 mmHg (80-105); ABG TCO2 33
[2021-06-04] MEDS: ZINC SULFATE 220 MG CAP PO SCH (09:37)
[2021-06-04] MEDS: CHOLECALCIFEROL 400 UNIT TAB PO SCH (09:37)
[2021-06-04] MEDS: BALSAM PERU/CASTOR OIL 60 GM OINT...G. TP SCH (09:37)
[2021-06-04] MEDS: EYE LUBRICANT OPTH OINT 3.5GM TUBE OP SCH (09:37)
[2021-06-04] MEDS: ENOXAPARIN INJ 80 MG/0.8 ML SYR SC SCH ×2 (09:37→21:47)
[2021-06-04] MEDS: ASCORBIC ACID 500 MG TAB PO SCH ×2 (09:37→17:00)
[2021-06-04] MEDS: FAMOTIDINE 20 MG/2 ML VIAL IV SCH ×2 (09:37→17:00)
[2021-06-04] MEDS: Vancomycin IV 1.25 GM in SODIUM CHLORIDE 0.9% 250ML 250 ML IV SCH ×2 (11:00→23:55)
[2021-06-04] MEDS: MIDAZOLAM HCL 5MG/ML 10ML VIAL 100 ML IV PRN ×3 (11:20→19:50)
[2021-06-04] MEDS ORDERED: VECURONIUM BROMIDE FOR INJ 20 MG VIAL IV ONE (13:00)
[2021-06-04] MEDS ORDERED: LACTULOSE SYRUP 20 GM/30 ML UDC PO ONE (13:30)
[2021-06-04 14:59] LABS: ABG PH 7.29 (7.35-7.45)
[2021-06-04 15:00] LABS: ABG HCO3 34 mmol/L (22-26); ABG PCO2 69 mmHg (35-45); ABG PO2 88 mmHg (80-105); ABG TCO2 36
[2021-06-04] MEDS: ROCURONIUM BROMIDE 1,250 MG in SODIUM CHLORIDE 0.9% 250ML 125 ML IV SCH (15:15)
[2021-06-04] MEDS: HEPARIN SOD/SOD CHLORIDE 1,000 ML IV SCH (17:45)
[2021-06-04] MEDS: INSULIN GLARGINE 100 UNITS/ML VIAL SQ SCH (21:47)
[2021-06-05] VITALS (25 sets, daily range): BP systolic 117–134; BP diastolic 62–80
[2021-06-05] MEDS: METOCLOPRAMIDE HCL 10 MG/2ML VIAL IV SCH ×4 (00:30→16:59)
[2021-06-05] MEDS: PROPOFOL IV EMULSION 10MG/ML 100 ML IV SCH ×5 (01:33→21:19)
[2021-06-05] MEDS: INSULIN REGULAR, HUMAN 100 UNIT/1 ML SQ SCH ×4 (06:00→17:13)
[2021-06-05 06:05] LABS: BASOPHILS # (AUTO) 0.1 (0.0-0.1); BASOPHILS % 0.9 % (0.0-1.0); EOSINOPHILS % 16.1 % (0.0-6.0); HEMATOCRIT 25.4 % (34.2-44.1); HEMOGLOBIN 7.4 g/dL (12.0-16.0); LYMPHOCYTES # (AUTO) 1.3 (1.0-3.2); LYMPHOCYTES % 10.1 % (18.0-39.1); MEAN CORPUSCULAR HEMOGLOBIN 28.4 pg (28-32); MEAN CORPUSCULAR HGB CONC 29.1 g/dL (31-35); MEAN CORPUSCULAR VOLUME 97.3 fL (81-99); MONOCYTES % 8.1 % (4.4-11.3); NEUTROPHILS # (AUTO) 7.3 (2.1-6.9); NEUTROPHILS % 58.4 % (38.7-80.0); PLATELET COUNT 570 x10e3/uL (140-360); RED BLOOD COUNT 2.61 x10e6/uL (3.6-5.1); RED CELL DISTRIBUTION WIDTH 15.7 % (11.7-14.4)
[2021-06-05] MEDS: CEFEPIME 1 GM in SODIUM CHLORIDE 0.9% 50ML 50 ML IV SCH ×3 (06:06→20:47)
[2021-06-05 06:30] LABS: ALBUMIN 2.4 g/dL (3.5-5.0); ALBUMIN/GLOBULIN RATIO 0.6 (0.8-2.0); ANION GAP 15.6 mmol/L (8-16); CALCIUM 9.2 mg/dL (8.4-10.2); CREATININE, SERUM 0.44 mg/dL (0.57-1.11); POTASSIUM 4.6 mmol/L (3.5-5.1)
[2021-06-05 06:51] LABS: EOSINOPHILS % (MANUAL) 18 % (0-7); HYPOCHROMASIA SLIGHT; LYMPHOCYTES % (MANUAL) 12 % (19-48); MONOCYTES % (MANUAL) 8 % (3.4-9.0); NEUTROPHILS % (MANUAL) 62 % (40-74)
[2021-06-05 06:52] LABS: PLATELET ESTIMATE MODERATELY INCREASED; RBC MORPHOLOGY COMMENT NORMAL; STOMATOCYTES SLIGHT
[2021-06-05] MEDS: ASCORBIC ACID 500 MG TAB PO SCH ×2 (08:23→16:31)
[2021-06-05] MEDS: CHOLECALCIFEROL 400 UNIT TAB PO SCH (08:23)
[2021-06-05] MEDS: EYE LUBRICANT OPTH OINT 3.5GM TUBE OP SCH (08:23)
[2021-06-05] MEDS: ENOXAPARIN INJ 80 MG/0.8 ML SYR SC SCH ×2 (08:23→20:47)
[2021-06-05] MEDS: BALSAM PERU/CASTOR OIL 60 GM OINT...G. TP SCH (08:23)
[2021-06-05] MEDS: ZINC SULFATE 220 MG CAP PO SCH (08:23)
[2021-06-05] MEDS: FAMOTIDINE 20 MG/2 ML VIAL IV SCH (08:23)
[2021-06-05] MEDS: MIDAZOLAM HCL 5MG/ML 10ML VIAL 100 ML IV PRN ×3 (08:34→21:19)
[2021-06-05] MEDS: FENTANYL 2000MCG/NS 250 250 ML IV PRN ×3 (08:46→23:00)
[2021-06-05] MEDS: ROCURONIUM BROMIDE 1,250 MG in SODIUM CHLORIDE 0.9% 250ML 125 ML IV SCH (08:55)
[2021-06-05 10:06] LABS: ABG HCO3 34 mmol/L (22-26); ABG PCO2 63 mmHg (35-45); ABG PH 7.35 (7.35-7.45); ABG PO2 110 mmHg (80-105); ABG TCO2 36
[2021-06-05] MEDS: Vancomycin IV 1.25 GM in SODIUM CHLORIDE 0.9% 250ML 250 ML IV SCH ×2 (11:27→22:18)
[2021-06-05] MEDS: ACETAMINOPHEN 325 MG TAB NG PRN (16:31)
[2021-06-05 16:37] LABS: ABG PCO2 55 mmHg (35-45); ABG PH 7.39 (7.35-7.45); ABG PO2 73 mmHg (80-105)
[2021-06-05 16:38] LABS: ABG HCO3 34 mmol/L (22-26); ABG TCO2 36
[2021-06-06] VITALS (27 sets, daily range): BP systolic 100–125; BP diastolic 44–79
[2021-06-06] MEDS: INSULIN GLARGINE 100 UNITS/ML VIAL SQ SCH ×2 (00:05→20:53)
[2021-06-06] MEDS: METOCLOPRAMIDE HCL 10 MG/2ML VIAL IV SCH ×5 (00:19→23:36)
[2021-06-06] MEDS: PROPOFOL IV EMULSION 10MG/ML 100 ML IV SCH ×7 (00:26→23:37)
[2021-06-06] MEDS ORDERED: VECURONIUM BROMIDE FOR INJ 20 MG VIAL IV STA (00:28)
[2021-06-06] MEDS: INSULIN REGULAR, HUMAN 100 UNIT/1 ML SQ SCH ×5 (01:10→23:35)
[2021-06-06] MEDS: MIDAZOLAM HCL 5MG/ML 10ML VIAL 100 ML IV PRN ×4 (02:20→22:33)
[2021-06-06 05:27] LABS: BASOPHILS # (AUTO) 0.1 (0.0-0.1); BASOPHILS % 0.7 % (0.0-1.0); EOSINOPHILS # (AUTO) 0.8 (0.0-0.4); EOSINOPHILS % 6.6 % (0.0-6.0); HEMATOCRIT 23.5 % (34.2-44.1); HEMOGLOBIN 7.1 g/dL (12.0-16.0); LYMPHOCYTES % 8.7 % (18.0-39.1); MEAN CORPUSCULAR HGB CONC 30.2 g/dL (31-35); MEAN CORPUSCULAR VOLUME 95.9 fL (81-99); MONOCYTES # (AUTO) 0.8 (0.2-0.8); MONOCYTES % 7.1 % (4.4-11.3); NEUTROPHILS # (AUTO) 8.3 (2.1-6.9); NEUTROPHILS % 71.6 % (38.7-80.0); PLATELET COUNT 755 x10e3/uL (140-360); RED BLOOD COUNT 2.45 x10e6/uL (3.6-5.1); RED CELL DISTRIBUTION WIDTH 15.2 % (11.7-14.4)
[2021-06-06] MEDS: CEFEPIME 1 GM in SODIUM CHLORIDE 0.9% 50ML 50 ML IV SCH ×3 (05:50→21:45)
[2021-06-06 06:02] LABS: ALBUMIN 2.3 g/dL (3.5-5.0); ALBUMIN/GLOBULIN RATIO 0.6 (0.8-2.0); ANION GAP 15.5 mmol/L (8-16); CREATININE, SERUM 0.45 mg/dL (0.57-1.11); POTASSIUM 4.5 mmol/L (3.5-5.1)
[2021-06-06 06:51] LABS: BAND NEUTROPHILS % (MANUAL) 5 %; EOSINOPHILS % (MANUAL) 4 % (0-7); LYMPHOCYTES % (MANUAL) 5 % (19-48); MONOCYTES % (MANUAL) 4 % (3.4-9.0); MYELOCYTES % (MANUAL) 5 % (0-0); NEUTROPHILS % (MANUAL) 77 % (40-74); NUCLEATED RED BLOOD CELLS 1
[2021-06-06 06:52] LABS: PLATELET MORPHOLOGY COMMENT NORMAL; RBC MORPHOLOGY COMMENT NORMAL
[2021-06-06 06:53] LABS: PLATELET ESTIMATE MODERATELY INCREASED
[2021-06-06 06:54] LABS: LARGE PLATELETS FEW
[2021-06-06 07:56] LABS: ABG PH 7.31 (7.35-7.45)
[2021-06-06 07:57] LABS: ABG HCO3 36 mmol/L (22-26); ABG PCO2 71 mmHg (35-45); ABG PO2 93 mmHg (80-105); ABG TCO2 39
[2021-06-06] MEDS: ENOXAPARIN INJ 80 MG/0.8 ML SYR SC SCH ×2 (08:07→20:52)
[2021-06-06] MEDS: ASCORBIC ACID 500 MG TAB PO SCH ×2 (08:07→17:13)
[2021-06-06] MEDS: BALSAM PERU/CASTOR OIL 60 GM OINT...G. TP SCH (08:07)
[2021-06-06] MEDS: CHOLECALCIFEROL 400 UNIT TAB PO SCH (08:07)
[2021-06-06] MEDS: ACETAMINOPHEN 325 MG TAB NG PRN (08:07)
[2021-06-06] MEDS: ZINC SULFATE 220 MG CAP PO SCH (08:07)
[2021-06-06] MEDS: EYE LUBRICANT OPTH OINT 3.5GM TUBE OP SCH (08:07)
[2021-06-06] MEDS: Vancomycin IV 1.25 GM in SODIUM CHLORIDE 0.9% 250ML 250 ML IV SCH ×2 (11:28→23:35)
[2021-06-06] MEDS: FENTANYL 2000MCG/NS 250 250 ML IV PRN ×2 (12:14→19:27)
[2021-06-06] MEDS: FUROSEMIDE INJ 10 MG/ML 4 ML VIAL IV SCH ×2 (14:08→21:45)
[2021-06-06] MEDS: ALBUMIN 25% 25GM 100ML 0.25 GM/ML BTL IV SCH ×2 (14:08→22:32)
[2021-06-06] MEDS ORDERED: ALTEPLASE RECOMBINANT 2 MG/2 ML VIAL IV ONE (14:35)
[2021-06-06] MEDS: ROCURONIUM BROMIDE 1,250 MG in SODIUM CHLORIDE 0.9% 250ML 125 ML IV SCH ×2 (15:09→23:35)
[2021-06-07] VITALS (25 sets, daily range): BP systolic 101–121; BP diastolic 53–79
[2021-06-07] MEDS: FENTANYL 2000MCG/NS 250 250 ML IV PRN ×3 (02:21→14:32)
[2021-06-07] MEDS: PROPOFOL IV EMULSION 10MG/ML 100 ML IV SCH ×5 (02:22→20:33)
[2021-06-07] MEDS: MIDAZOLAM HCL 5MG/ML 10ML VIAL 100 ML IV PRN ×4 (03:30→20:21)
[2021-06-07 05:44] LABS: BASOPHILS # (AUTO) 0.1 (0.0-0.1); BASOPHILS % 0.9 % (0.0-1.0); EOSINOPHILS # (AUTO) 1.1 (0.0-0.4); HEMATOCRIT 24.3 % (34.2-44.1); HEMOGLOBIN 7.2 g/dL (12.0-16.0); LYMPHOCYTES # (AUTO) 1.5 (1.0-3.2); LYMPHOCYTES % 14.3 % (18.0-39.1); MEAN CORPUSCULAR HEMOGLOBIN 28.3 pg (28-32); MEAN CORPUSCULAR HGB CONC 29.6 g/dL (31-35); MEAN CORPUSCULAR VOLUME 95.7 fL (81-99); MONOCYTES # (AUTO) 1.2 (0.2-0.8); MONOCYTES % 11.6 % (4.4-11.3); NEUTROPHILS # (AUTO) 5.8 (2.1-6.9); NEUTROPHILS % 57.7 % (38.7-80.0); PLATELET COUNT 676 x10e3/uL (140-360); RED BLOOD COUNT 2.54 x10e6/uL (3.6-5.1); RED CELL DISTRIBUTION WIDTH 15.4 % (11.7-14.4)
[2021-06-07] MEDS: CEFEPIME 1 GM in SODIUM CHLORIDE 0.9% 50ML 50 ML IV SCH ×3 (05:47→21:20)
[2021-06-07] MEDS: METOCLOPRAMIDE HCL 10 MG/2ML VIAL IV SCH ×3 (05:47→18:20)
[2021-06-07 06:17] LABS: ALBUMIN 2.9 g/dL (3.5-5.0); ALBUMIN/GLOBULIN RATIO 0.8 (0.8-2.0); ANION GAP 16.3 mmol/L (8-16); CALCIUM 9.3 mg/dL (8.4-10.2); CREATININE, SERUM 0.46 mg/dL (0.57-1.11); POTASSIUM 3.3 mmol/L (3.5-5.1)
[2021-06-07] MEDS: ALBUMIN 25% 25GM 100ML 0.25 GM/ML BTL IV SCH (06:37)
[2021-06-07] MEDS: INSULIN REGULAR, HUMAN 100 UNIT/1 ML SQ SCH ×3 (06:37→18:20)
[2021-06-07] MEDS: FUROSEMIDE INJ 10 MG/ML 4 ML VIAL IV SCH (09:00)
[2021-06-07] MEDS: EYE LUBRICANT OPTH OINT 3.5GM TUBE OP SCH (09:00)
[2021-06-07] MEDS: ASCORBIC ACID 500 MG TAB PO SCH ×2 (09:00→17:06)
[2021-06-07] MEDS: CHOLECALCIFEROL 400 UNIT TAB PO SCH (09:00)
[2021-06-07] MEDS: ZINC SULFATE 220 MG CAP PO SCH (09:00)
[2021-06-07] MEDS: BALSAM PERU/CASTOR OIL 60 GM OINT...G. TP SCH (09:00)
[2021-06-07] MEDS: ENOXAPARIN INJ 80 MG/0.8 ML SYR SC SCH (09:00)
[2021-06-07 09:03] LABS: ABG HCO3 42 mmol/L (22-26); ABG PCO2 53 mmHg (35-45); ABG PO2 74 mmHg (80-105); ABG TCO2 44
[2021-06-07] MEDS: POTASSIUM CHLORIDE 20MEQ/100ML 100 ML IV PRN (09:12)
[2021-06-07] MEDS ORDERED: CITRATE OF MAGNESIA 300ML BOTTLE PO ONE (11:00)
[2021-06-07] MEDS: Vancomycin IV 1.25 GM in SODIUM CHLORIDE 0.9% 250ML 250 ML IV SCH ×2 (11:08→23:50)
[2021-06-07] MEDS: ACETAZOLAMIDE 250 MG TAB PO SCH ×2 (11:09→21:20)
[2021-06-07] MEDS ORDERED: ACETAMINOPHEN 1000 MG/100 ML IV STA (12:12)
[2021-06-07] MEDS: ROCURONIUM BROMIDE 1,250 MG in SODIUM CHLORIDE 0.9% 250ML 125 ML IV SCH (13:00)
[2021-06-07] MEDS: INSULIN GLARGINE 100 UNITS/ML VIAL SQ SCH (21:21)
[2021-06-08] VITALS (23 sets, daily range): BP systolic 92–117; BP diastolic 48–72
[2021-06-08] MEDS: METOCLOPRAMIDE HCL 10 MG/2ML VIAL IV SCH ×2 (00:24→05:44)
[2021-06-08] MEDS: PROPOFOL IV EMULSION 10MG/ML 100 ML IV SCH ×5 (00:25→19:55)
[2021-06-08] MEDS: FENTANYL 2000MCG/NS 250 250 ML IV PRN ×4 (00:27→19:55)
[2021-06-08] MEDS: MIDAZOLAM HCL 5MG/ML 10ML VIAL 100 ML IV PRN ×5 (00:27→19:56)
[2021-06-08] MEDS: ACETAMINOPHEN 325 MG TAB NG PRN ×2 (01:00→22:26)
[2021-06-08 05:37] LABS: BASOPHILS # (AUTO) 0.1 (0.0-0.1); BASOPHILS % 0.7 % (0.0-1.0); EOSINOPHILS # (AUTO) 0.7 (0.0-0.4); EOSINOPHILS % 4.1 % (0.0-6.0); HEMATOCRIT 26.5 % (34.2-44.1); HEMOGLOBIN 7.7 g/dL (12.0-16.0); LYMPHOCYTES # (AUTO) 1.1 (1.0-3.2); LYMPHOCYTES % 5.8 % (18.0-39.1); MEAN CORPUSCULAR HEMOGLOBIN 28.5 pg (28-32); MEAN CORPUSCULAR HGB CONC 29.1 g/dL (31-35); MEAN CORPUSCULAR VOLUME 98.1 fL (81-99); MONOCYTES # (AUTO) 1.7 (0.2-0.8); MONOCYTES % 9.1 % (4.4-11.3); NEUTROPHILS # (AUTO) 13.6 (2.1-6.9); NEUTROPHILS % 74.9 % (38.7-80.0); PLATELET COUNT 662 x10e3/uL (140-360); RED CELL DISTRIBUTION WIDTH 15.8 % (11.7-14.4)
[2021-06-08] MEDS: CEFEPIME 1 GM in SODIUM CHLORIDE 0.9% 50ML 50 ML IV SCH ×3 (05:43→21:02)
[2021-06-08] MEDS: INSULIN REGULAR, HUMAN 100 UNIT/1 ML SQ SCH ×4 (05:49→18:00)
[2021-06-08 06:01] LABS: INR 0.98; PARTIAL THROMBOPLASTIN TIME 29.8 seconds (23.8-35.5); PROTHROMBIN TIME 13.6 seconds (11.9-14.5)
[2021-06-08 06:19] LABS: ALBUMIN/GLOBULIN RATIO 0.8 (0.8-2.0); ANION GAP 18.3 mmol/L (8-16); CALCIUM 9.5 mg/dL (8.4-10.2); CREATININE, SERUM 0.57 mg/dL (0.57-1.11); POTASSIUM 4.3 mmol/L (3.5-5.1)
[2021-06-08 07:00] LABS: BAND NEUTROPHILS % (MANUAL) 4 %; EOSINOPHILS % (MANUAL) 6 % (0-7); LYMPHOCYTES % (MANUAL) 3 % (19-48); MONOCYTES % (MANUAL) 5 % (3.4-9.0); MYELOCYTES % (MANUAL) 2 % (0-0); NEUTROPHILS % (MANUAL) 80 % (40-74); PLATELET ESTIMATE MODERATELY INCREASED
[2021-06-08 07:01] LABS: PLATELET MORPHOLOGY COMMENT FEW EDTA CLUMPING; RBC MORPHOLOGY COMMENT NORMAL
[2021-06-08] MEDS ORDERED: SODIUM CHLORIDE 0.9% 1000ML 1,000 ML ONE (09:05)
[2021-06-08 09:58] LABS: ABG PH 7.19 (7.35-7.45)
[2021-06-08 09:59] LABS: ABG PCO2 107 mmHg (35-45); ABG PO2 78 mmHg (80-105)
[2021-06-08 10:00] LABS: ABG HCO3 41 mmol/L (22-26); ABG TCO2 44
[2021-06-08] MEDS: BALSAM PERU/CASTOR OIL 60 GM OINT...G. TP SCH (10:08)
[2021-06-08] MEDS: MICAFUNGIN SODIUM 100 ML IV SCH (10:15)
[2021-06-08] MEDS: ROCURONIUM BROMIDE 1,250 MG in SODIUM CHLORIDE 0.9% 250ML 125 ML IV SCH (11:26)
[2021-06-08 11:28] LABS: ABG HCO3 35 mmol/L (22-26); ABG PCO2 78 mmHg (35-45); ABG PH 7.27 (7.35-7.45); ABG PO2 109 mmHg (80-105); ABG TCO2 38
[2021-06-08] MEDS: ACETAZOLAMIDE 250 MG TAB PO SCH (11:49)
[2021-06-08] MEDS ORDERED: ACETAZOLAMIDE 250 MG TAB PO SCH (12:00)
[2021-06-08] MEDS: ENOXAPARIN INJ 80 MG/0.8 ML SYR SC SCH ×2 (13:07→21:01)
[2021-06-08] MEDS: METRONIDAZOLE 500MG/NS 100ML 100 ML IV SCH ×2 (13:34→21:02)
[2021-06-08] MEDS: COLLAGENASE 5 GM TUBE TOP SCH (15:10)
[2021-06-08] MEDS: INSULIN GLARGINE 100 UNITS/ML VIAL SQ SCH (21:02)
[2021-06-09] VITALS (23 sets, daily range): BP systolic 92–122; BP diastolic 50–78
[2021-06-09] MEDS: INSULIN REGULAR, HUMAN 100 UNIT/1 ML SQ SCH ×2 (00:16→06:47)
[2021-06-09] MEDS: MIDAZOLAM HCL 5MG/ML 10ML VIAL 100 ML IV PRN ×5 (01:30→21:06)
[2021-06-09] MEDS: PROPOFOL IV EMULSION 10MG/ML 100 ML IV SCH ×6 (02:00→21:55)
[2021-06-09] MEDS: FENTANYL 2000MCG/NS 250 250 ML IV PRN ×3 (04:45→16:30)
[2021-06-09 05:38] LABS: BASOPHILS # (AUTO) 0.1 (0.0-0.1); BASOPHILS % 0.6 % (0.0-1.0); EOSINOPHILS # (AUTO) 0.7 (0.0-0.4); EOSINOPHILS % 5.3 % (0.0-6.0); HEMATOCRIT 24.7 % (34.2-44.1); HEMOGLOBIN 7.2 g/dL (12.0-16.0); LYMPHOCYTES # (AUTO) 1.4 (1.0-3.2); LYMPHOCYTES % 10.7 % (18.0-39.1); MEAN CORPUSCULAR HEMOGLOBIN 27.6 pg (28-32); MEAN CORPUSCULAR HGB CONC 29.1 g/dL (31-35); MEAN CORPUSCULAR VOLUME 94.6 fL (81-99); MONOCYTES # (AUTO) 1.2 (0.2-0.8); MONOCYTES % 9.5 % (4.4-11.3); NEUTROPHILS # (AUTO) 8.9 (2.1-6.9); NEUTROPHILS % 70.1 % (38.7-80.0); PLATELET COUNT 658 x10e3/uL (140-360); RED BLOOD COUNT 2.61 x10e6/uL (3.6-5.1); RED CELL DISTRIBUTION WIDTH 15.4 % (11.7-14.4)
[2021-06-09] MEDS: METRONIDAZOLE 500MG/NS 100ML 100 ML IV SCH ×3 (05:50→19:50)
[2021-06-09] MEDS: CEFEPIME 1 GM in SODIUM CHLORIDE 0.9% 50ML 50 ML IV SCH ×3 (05:50→20:38)
[2021-06-09 06:10] LABS: ALBUMIN 2.8 g/dL (3.5-5.0); ALBUMIN/GLOBULIN RATIO 0.7 (0.8-2.0); ANION GAP 16.5 mmol/L (8-16); CREATININE, SERUM 0.48 mg/dL (0.57-1.11); POTASSIUM 3.5 mmol/L (3.5-5.1)
[2021-06-09] MEDS ORDERED: POTASSIUM CHLORIDE 20MEQ/100ML 200 ML IV ONE (09:15)
[2021-06-09] MEDS: ENOXAPARIN INJ 80 MG/0.8 ML SYR SC SCH ×2 (09:48→19:50)
[2021-06-09] MEDS: BALSAM PERU/CASTOR OIL 60 GM OINT...G. TP SCH (09:48)
[2021-06-09] MEDS: FUROSEMIDE INJ 10 MG/ML 4 ML VIAL IV SCH ×2 (09:48→19:50)
[2021-06-09] MEDS: COLLAGENASE 5 GM TUBE TOP SCH (09:48)
[2021-06-09] MEDS: ALBUMIN 25% 25GM 100ML 0.25 GM/ML BTL IV SCH ×2 (09:49→16:31)
[2021-06-09] MEDS: ACETAZOLAMIDE 250 MG TAB PO SCH ×2 (09:49→16:31)
[2021-06-09] MEDS: MICAFUNGIN SODIUM 100 ML IV SCH (09:49)
[2021-06-09 09:52] LABS: ABG HCO3 34 mmol/L (22-26); ABG PCO2 43 mmHg (35-45); ABG PH 7.51 (7.35-7.45); ABG PO2 71 mmHg (80-105); ABG TCO2 36
[2021-06-09] MEDS: ACETAMINOPHEN 325 MG TAB NG PRN (09:53)
[2021-06-09] MEDS: ROCURONIUM BROMIDE 1,250 MG in SODIUM CHLORIDE 0.9% 250ML 125 ML IV SCH (10:45)
[2021-06-09] MEDS: INSULIN GLARGINE 100 UNITS/ML VIAL SQ SCH (20:08)
[2021-06-10] VITALS (25 sets, daily range): BP systolic 90–130; BP diastolic 48–89
[2021-06-10] MEDS: FENTANYL 2000MCG/NS 250 250 ML IV PRN ×4 (00:26→20:51)
[2021-06-10] MEDS: ACETAZOLAMIDE 250 MG TAB PO SCH (00:57)
[2021-06-10] MEDS: ALBUMIN 25% 25GM 100ML 0.25 GM/ML BTL IV SCH ×3 (00:57→17:05)
[2021-06-10] MEDS: MIDAZOLAM HCL 5MG/ML 10ML VIAL 100 ML IV PRN ×5 (02:16→21:48)
[2021-06-10] MEDS: CEFEPIME 1 GM in SODIUM CHLORIDE 0.9% 50ML 50 ML IV SCH ×3 (04:17→19:44)
[2021-06-10] MEDS: METRONIDAZOLE 500MG/NS 100ML 100 ML IV SCH ×3 (04:17→19:43)
[2021-06-10] MEDS: PROPOFOL IV EMULSION 10MG/ML 100 ML IV SCH ×4 (05:07→20:01)
[2021-06-10 05:29] LABS: CLARITY,URINE CLOUDY (CLEAR); COLOR,URINE AMBER (YELLOW)
[2021-06-10 05:30] LABS: KETONES,URINE NEGATIVE (NEGATIVE); LEUKOCYTE ESTERASE ,URINE TRACE (NEGATIVE); NITRITE,URINE NEGATIVE (NEGATIVE); PROTEIN,URINE DIPSTICK 1+ (NEGATIVE); URINE UROBILINOGEN 0.2 mg/dL (0.2 - 1)
[2021-06-10 05:44] LABS: RBC,URINE >50 /HPF (0-5)
[2021-06-10 05:45] LABS: BACTERIA,URINE MODERATE /HPF; EPITHELIAL CELLS,URINE FEW /LPF; RENAL EPITHELIAL CELLS,URINE FEW; TRANSITIONAL EPI CELLS,URINE FEW
[2021-06-10 05:46] LABS: AMORPHOUS SEDIMENT,URINE MODERATE (FEW)
[2021-06-10 06:12] LABS: BASOPHILS # (AUTO) 0.1 (0.0-0.1); BASOPHILS % 0.7 % (0.0-1.0); EOSINOPHILS # (AUTO) 0.6 (0.0-0.4); EOSINOPHILS % 5.6 % (0.0-6.0); LYMPHOCYTES # (AUTO) 1.2 (1.0-3.2); LYMPHOCYTES % 11.8 % (18.0-39.1); MEAN CORPUSCULAR HGB CONC 29.3 g/dL (31-35); MEAN CORPUSCULAR VOLUME 95.3 fL (81-99); MONOCYTES # (AUTO) 1.1 (0.2-0.8); MONOCYTES % 11.1 % (4.4-11.3); NEUTROPHILS # (AUTO) 6.9 (2.1-6.9); NEUTROPHILS % 68.5 % (38.7-80.0); PLATELET COUNT 549 x10e3/uL (140-360); RED BLOOD COUNT 2.36 x10e6/uL (3.6-5.1); RED CELL DISTRIBUTION WIDTH 15.6 % (11.7-14.4)
[2021-06-10 06:25] LABS: ALBUMIN 3.3 g/dL (3.5-5.0); ALBUMIN/GLOBULIN RATIO 1.1 (0.8-2.0); ANION GAP 16.6 mmol/L (8-16); CALCIUM 9.3 mg/dL (8.4-10.2); CREATININE, SERUM 0.53 mg/dL (0.57-1.11); POTASSIUM 3.6 mmol/L (3.5-5.1)
[2021-06-10 06:41] LABS: HEMOGLOBIN 6.6 g/dL (12.0-16.0)
[2021-06-10 06:42] LABS: HEMATOCRIT 22.5 % (34.2-44.1)
[2021-06-10] MEDS ORDERED: DIPHENHYDRAMINE HCL INJ 50 MG/ML VIAL IV ONE (06:45)
[2021-06-10] MEDS ORDERED: SODIUM CHLORIDE 0.9% 250ML 250 ML IV ONE (06:45)
[2021-06-10 08:26] LABS: ABG HCO3 37 mmol/L (22-26); ABG PCO2 55 mmHg (35-45); ABG PH 7.44 (7.35-7.45); ABG PO2 207 mmHg (80-105); ABG TCO2 39
[2021-06-10] MEDS: FUROSEMIDE INJ 10 MG/ML 4 ML VIAL IV SCH ×2 (09:11→19:43)
[2021-06-10] MEDS: BALSAM PERU/CASTOR OIL 60 GM OINT...G. TP SCH (09:11)
[2021-06-10] MEDS: COLLAGENASE 5 GM TUBE TOP SCH (09:11)
[2021-06-10] MEDS: ENOXAPARIN INJ 80 MG/0.8 ML SYR SC SCH ×2 (09:11→19:43)
[2021-06-10] MEDS: ACETAZOLAMIDE SODIUM 500 MG/VIAL IV SCH ×2 (12:06→19:43)
[2021-06-10] MEDS: MICAFUNGIN SODIUM 100 ML IV SCH (12:06)
[2021-06-10] MEDS ORDERED: SODIUM CHLORIDE 0.9% 250ML 250 ML ONE (13:04)
[2021-06-10] MEDS: ROCURONIUM BROMIDE 1,250 MG in SODIUM CHLORIDE 0.9% 250ML 125 ML IV SCH (13:10)
[2021-06-10 16:26] LABS: ABG HCO3 37 mmol/L (22-26); ABG PCO2 56 mmHg (35-45); ABG PH 7.43 (7.35-7.45); ABG PO2 92 mmHg (80-105); ABG TCO2 39
[2021-06-10] MEDS: INSULIN GLARGINE 100 UNITS/ML VIAL SQ SCH (20:29)
[2021-06-11] VITALS (25 sets, daily range): BP systolic 87–137; BP diastolic 50–79
[2021-06-11] MEDS: ALBUMIN 25% 25GM 100ML 0.25 GM/ML BTL IV SCH ×3 (00:49→16:54)
[2021-06-11] MEDS: FENTANYL 2000MCG/NS 250 250 ML IV PRN ×3 (02:59→23:18)
[2021-06-11] MEDS: MIDAZOLAM HCL 5MG/ML 10ML VIAL 100 ML IV PRN ×5 (02:59→23:19)
[2021-06-11] MEDS ORDERED: SODIUM CHLORIDE 0.9% 1000ML 1,000 ML ONE (03:42)
[2021-06-11] MEDS: PROPOFOL IV EMULSION 10MG/ML 100 ML IV SCH ×4 (03:55→19:53)
[2021-06-11] MEDS: CEFEPIME 1 GM in SODIUM CHLORIDE 0.9% 50ML 50 ML IV SCH ×2 (04:12→13:11)
[2021-06-11] MEDS: METRONIDAZOLE 500MG/NS 100ML 100 ML IV SCH ×3 (04:12→19:46)
[2021-06-11 06:15] LABS: BASOPHILS # (AUTO) 0.1 (0.0-0.1); BASOPHILS % 1.4 % (0.0-1.0); EOSINOPHILS # (AUTO) 1.1 (0.0-0.4); EOSINOPHILS % 13.5 % (0.0-6.0); HEMATOCRIT 26.4 % (34.2-44.1); HEMOGLOBIN 7.5 g/dL (12.0-16.0); LYMPHOCYTES # (AUTO) 1.3 (1.0-3.2); MEAN CORPUSCULAR HEMOGLOBIN 26.9 pg (28-32); MEAN CORPUSCULAR HGB CONC 28.4 g/dL (31-35); MEAN CORPUSCULAR VOLUME 94.6 fL (81-99); MONOCYTES # (AUTO) 0.9 (0.2-0.8); MONOCYTES % 11.6 % (4.4-11.3); NEUTROPHILS # (AUTO) 4.5 (2.1-6.9); PLATELET COUNT 438 x10e3/uL (140-360); RED BLOOD COUNT 2.79 x10e6/uL (3.6-5.1); RED CELL DISTRIBUTION WIDTH 16.6 % (11.7-14.4)
[2021-06-11 06:41] LABS: ALBUMIN 3.7 g/dL (3.5-5.0); ALBUMIN/GLOBULIN RATIO 1.3 (0.8-2.0); ANION GAP 15.1 mmol/L (8-16); CALCIUM 9.5 mg/dL (8.4-10.2); CREATININE, SERUM 0.51 mg/dL (0.57-1.11); POTASSIUM 3.1 mmol/L (3.5-5.1)
[2021-06-11 07:50] LABS: EOSINOPHILS % (MANUAL) 11 % (0-7); LYMPHOCYTES % (MANUAL) 15 % (19-48); MONOCYTES % (MANUAL) 8 % (3.4-9.0); NEUTROPHILS % (MANUAL) 66 % (40-74)
[2021-06-11] MEDS: POTASSIUM CHLORIDE 20MEQ/100ML 100 ML IV PRN (08:04)
[2021-06-11 08:54] LABS: ABG PH 7.34 (7.35-7.45)
[2021-06-11 08:55] LABS: ABG HCO3 38 mmol/L (22-26); ABG PCO2 71 mmHg (35-45); ABG PO2 240 mmHg (80-105); ABG TCO2 40
[2021-06-11] MEDS: ENOXAPARIN INJ 80 MG/0.8 ML SYR SC SCH ×2 (09:35→19:46)
[2021-06-11] MEDS: ACETAMINOPHEN 325 MG TAB NG PRN (09:35)
[2021-06-11] MEDS: ACETAZOLAMIDE SODIUM 500 MG/VIAL IV SCH (09:35)
[2021-06-11] MEDS: BALSAM PERU/CASTOR OIL 60 GM OINT...G. TP SCH (09:35)
[2021-06-11] MEDS: COLLAGENASE 5 GM TUBE TOP SCH (09:35)
[2021-06-11] MEDS: FUROSEMIDE INJ 10 MG/ML 4 ML VIAL IV SCH ×3 (09:35→19:45)
[2021-06-11] MEDS: MICAFUNGIN SODIUM 100 ML IV SCH (09:36)
[2021-06-11] MEDS: ROCURONIUM BROMIDE 1,250 MG in SODIUM CHLORIDE 0.9% 250ML 125 ML IV SCH (13:10)
[2021-06-11] MEDS ORDERED: ALTEPLASE RECOMBINANT 2 MG/2 ML VIAL IV PRN (16:15)
[2021-06-11] MEDS ORDERED: ACETAMINOPHEN 1000 MG/100 ML IV NR (16:30)
[2021-06-11] MEDS: INSULIN GLARGINE 100 UNITS/ML VIAL SQ SCH (20:09)
[2021-06-11] MEDS ORDERED: POTASSIUM CHLORIDE 20MEQ/100ML 100 ML IV ONE (21:00)
[2021-06-12] VITALS (25 sets, daily range): BP systolic 100–141; BP diastolic 48–72
[2021-06-12] MEDS: PROPOFOL IV EMULSION 10MG/ML 100 ML IV SCH ×6 (01:40→18:40)
[2021-06-12] MEDS: ALBUMIN 25% 25GM 100ML 0.25 GM/ML BTL IV SCH ×2 (02:31→08:53)
[2021-06-12 03:44] LABS: BASOPHILS # (AUTO) 0.1 (0.0-0.1); BASOPHILS % 0.5 % (0.0-1.0); EOSINOPHILS # (AUTO) 0.6 (0.0-0.4); EOSINOPHILS % 5.8 % (0.0-6.0); HEMATOCRIT 24.6 % (34.2-44.1); HEMOGLOBIN 7.4 g/dL (12.0-16.0); LYMPHOCYTES # (AUTO) 1.2 (1.0-3.2); LYMPHOCYTES % 12.2 % (18.0-39.1); MEAN CORPUSCULAR HEMOGLOBIN 28.5 pg (28-32); MEAN CORPUSCULAR HGB CONC 30.1 g/dL (31-35); MEAN CORPUSCULAR VOLUME 94.6 fL (81-99); MONOCYTES # (AUTO) 0.8 (0.2-0.8); MONOCYTES % 7.6 % (4.4-11.3); NEUTROPHILS # (AUTO) 7.4 (2.1-6.9); NEUTROPHILS % 72.7 % (38.7-80.0); PLATELET COUNT 536 x10e3/uL (140-360); RED CELL DISTRIBUTION WIDTH 16.4 % (11.7-14.4)
[2021-06-12 04:03] LABS: ALBUMIN 3.4 g/dL (3.5-5.0); ANION GAP 13.3 mmol/L (8-16); CALCIUM 8.5 mg/dL (8.4-10.2); CREATININE, SERUM 0.49 mg/dL (0.57-1.11); POTASSIUM 3.3 mmol/L (3.5-5.1)
[2021-06-12] MEDS: MIDAZOLAM HCL 5MG/ML 10ML VIAL 100 ML IV PRN ×4 (04:20→20:18)
[2021-06-12] MEDS: POTASSIUM CHLORIDE 20MEQ/100ML 100 ML IV PRN (04:25)
[2021-06-12] MEDS: METRONIDAZOLE 500MG/NS 100ML 100 ML IV SCH ×3 (04:26→20:53)
[2021-06-12] MEDS: FENTANYL 2000MCG/NS 250 250 ML IV PRN ×3 (05:59→20:17)
[2021-06-12] MEDS: BALSAM PERU/CASTOR OIL 60 GM OINT...G. TP SCH (08:53)
[2021-06-12] MEDS: FUROSEMIDE INJ 10 MG/ML 4 ML VIAL IV SCH (08:53)
[2021-06-12] MEDS: COLLAGENASE 5 GM TUBE TOP SCH (08:53)
[2021-06-12] MEDS: ENOXAPARIN INJ 80 MG/0.8 ML SYR SC SCH ×2 (08:53→20:52)
[2021-06-12 09:10] LABS: ABG PH 7.32 (7.35-7.45)
[2021-06-12 09:12] LABS: ABG HCO3 36 mmol/L (22-26); ABG PCO2 70 mmHg (35-45); ABG PO2 64 mmHg (80-105)
[2021-06-12 09:13] LABS: ABG TCO2 38
[2021-06-12] MEDS ORDERED: POTASSIUM CHLORIDE 20MEQ/100ML 200 ML IV ONE (09:30)
[2021-06-12] MEDS: FUROSEMIDE INJ 100 MG in SODIUM CHLORIDE 0.9% 100 ML 90 ML IV SCH ×2 (10:56→18:37)
[2021-06-12] MEDS: MICAFUNGIN SODIUM 100 ML IV SCH (10:57)
[2021-06-12] MEDS ORDERED: DEXTROSE 50% SYRINGE 50 ML IV PRN (12:45)
[2021-06-12] MEDS ORDERED: INSULIN REGULAR, HUMAN 100 UNIT/1 ML SQ SCH (16:30)
[2021-06-12] MEDS: ROCURONIUM BROMIDE 1,250 MG in SODIUM CHLORIDE 0.9% 250ML 125 ML IV SCH (16:54)
[2021-06-12] MEDS: INSULIN REGULAR, HUMAN 100 UNIT/1 ML SQ SCH (17:45)
[2021-06-12] MEDS: INSULIN GLARGINE 100 UNITS/ML VIAL SQ SCH (20:57)
[2021-06-13] VITALS (26 sets, daily range): BP systolic 93–126; BP diastolic 44–72
[2021-06-13] MEDS: PROPOFOL IV EMULSION 10MG/ML 100 ML IV SCH ×5 (00:25→21:31)
[2021-06-13] MEDS: FENTANYL 2000MCG/NS 250 250 ML IV PRN ×2 (01:55→17:11)
[2021-06-13] MEDS: MIDAZOLAM HCL 5MG/ML 10ML VIAL 100 ML IV PRN ×4 (01:56→18:19)
[2021-06-13] MEDS: ACETAMINOPHEN 325 MG TAB NG PRN ×2 (03:45→13:15)
[2021-06-13] MEDS ORDERED: SODIUM CHLORIDE 0.9% 100 ML ONE (05:34)
[2021-06-13] MEDS ORDERED: FUROSEMIDE INJ 10 MG/ML 10 ML VIAL ONE (05:34)
[2021-06-13 05:53] LABS: BASOPHILS # (AUTO) 0.1 (0.0-0.1); BASOPHILS % 0.8 % (0.0-1.0); EOSINOPHILS # (AUTO) 1.4 (0.0-0.4); EOSINOPHILS % 11.2 % (0.0-6.0); HEMATOCRIT 28.3 % (34.2-44.1); HEMOGLOBIN 8.4 g/dL (12.0-16.0); LYMPHOCYTES # (AUTO) 1.6 (1.0-3.2); LYMPHOCYTES % 12.3 % (18.0-39.1); MEAN CORPUSCULAR HEMOGLOBIN 27.4 pg (28-32); MEAN CORPUSCULAR HGB CONC 29.7 g/dL (31-35); MEAN CORPUSCULAR VOLUME 92.2 fL (81-99); MONOCYTES # (AUTO) 0.8 (0.2-0.8); MONOCYTES % 5.9 % (4.4-11.3); NEUTROPHILS # (AUTO) 8.8 (2.1-6.9); NEUTROPHILS % 68.9 % (38.7-80.0); PLATELET COUNT 545 x10e3/uL (140-360); RED BLOOD COUNT 3.07 x10e6/uL (3.6-5.1); RED CELL DISTRIBUTION WIDTH 15.9 % (11.7-14.4)
[2021-06-13 06:13] LABS: ALBUMIN 3.5 g/dL (3.5-5.0); ALBUMIN/GLOBULIN RATIO 1.1 (0.8-2.0); ANION GAP 12.2 mmol/L (8-16); CALCIUM 9.4 mg/dL (8.4-10.2); CREATININE, SERUM 0.53 mg/dL (0.57-1.11); POTASSIUM 3.2 mmol/L (3.5-5.1)
[2021-06-13] MEDS: INSULIN REGULAR, HUMAN 100 UNIT/1 ML SQ SCH ×4 (06:20→18:00)
[2021-06-13] MEDS: METRONIDAZOLE 500MG/NS 100ML 100 ML IV SCH (06:24)
[2021-06-13] MEDS ORDERED: POTASSIUM CHLORIDE 20MEQ/100ML 200 ML IV ONE (07:45)
[2021-06-13] MEDS ORDERED: IBUPROFEN 800MG/ 200ML 200 ML IV ONE (08:30)
[2021-06-13] MEDS: BALSAM PERU/CASTOR OIL 60 GM OINT...G. TP SCH (09:22)
[2021-06-13] MEDS: ENOXAPARIN INJ 80 MG/0.8 ML SYR SC SCH ×2 (09:22→20:44)
[2021-06-13] MEDS: COLLAGENASE 5 GM TUBE TOP SCH (09:22)
[2021-06-13] MEDS: ROCURONIUM BROMIDE 1,250 MG in SODIUM CHLORIDE 0.9% 250ML 125 ML IV SCH (10:15)
[2021-06-13] MEDS: MICAFUNGIN SODIUM 100 ML IV SCH (10:30)
[2021-06-13 11:12] LABS: ABG HCO3 41 mmol/L (22-26); ABG PCO2 53 mmHg (35-45); ABG PO2 70 mmHg (80-105); ABG TCO2 43
[2021-06-13] MEDS: INSULIN GLARGINE 100 UNITS/ML VIAL SQ SCH (20:45)
[2021-06-14] VITALS (25 sets, daily range): BP systolic 90–133; BP diastolic 44–88
[2021-06-14] MEDS: MIDAZOLAM HCL 5MG/ML 10ML VIAL 100 ML IV PRN ×5 (00:06→23:44)
[2021-06-14] MEDS: FENTANYL 2000MCG/NS 250 250 ML IV PRN ×4 (00:06→23:09)
[2021-06-14] MEDS: METOCLOPRAMIDE HCL 10 MG/2ML VIAL IV SCH ×2 (00:16→06:20)
[2021-06-14] MEDS: INSULIN REGULAR, HUMAN 100 UNIT/1 ML SQ SCH ×5 (00:17→23:52)
[2021-06-14] MEDS: PROPOFOL IV EMULSION 10MG/ML 100 ML IV SCH ×6 (01:46→17:58)
[2021-06-14] MEDS: FUROSEMIDE INJ 100 MG in SODIUM CHLORIDE 0.9% 100 ML 90 ML IV SCH (02:04)
[2021-06-14] MEDS ORDERED: FUROSEMIDE INJ 10 MG/ML 10 ML VIAL ONE (02:10)
[2021-06-14] MEDS ORDERED: SODIUM CHLORIDE 0.9% 100 ML ONE (02:10)
[2021-06-14 04:40] LABS: BASOPHILS # (AUTO) 0.2 (0.0-0.1); BASOPHILS % 1.3 % (0.0-1.0); EOSINOPHILS # (AUTO) 1.5 (0.0-0.4); EOSINOPHILS % 12.7 % (0.0-6.0); HEMATOCRIT 28.5 % (34.2-44.1); HEMOGLOBIN 8.6 g/dL (12.0-16.0); LYMPHOCYTES # (AUTO) 1.5 (1.0-3.2); MEAN CORPUSCULAR HEMOGLOBIN 27.7 pg (28-32); MEAN CORPUSCULAR HGB CONC 30.2 g/dL (31-35); MEAN CORPUSCULAR VOLUME 91.6 fL (81-99); MONOCYTES # (AUTO) 0.9 (0.2-0.8); MONOCYTES % 7.3 % (4.4-11.3); NEUTROPHILS # (AUTO) 7.6 (2.1-6.9); NEUTROPHILS % 64.6 % (38.7-80.0); PLATELET COUNT 519 x10e3/uL (140-360); RED BLOOD COUNT 3.11 x10e6/uL (3.6-5.1); RED CELL DISTRIBUTION WIDTH 15.9 % (11.7-14.4)
[2021-06-14 05:00] LABS: ALBUMIN 3.1 g/dL (3.5-5.0); ALBUMIN/GLOBULIN RATIO 0.9 (0.8-2.0); ANION GAP 16.9 mmol/L (8-16); CALCIUM 9.3 mg/dL (8.4-10.2); CREATININE, SERUM 0.5 mg/dL (0.57-1.11)
[2021-06-14 05:06] LABS: POTASSIUM 2.9 mmol/L (3.5-5.1)
[2021-06-14] MEDS: POTASSIUM CHLORIDE 20MEQ/100ML 100 ML IV SCH ×2 (06:15→08:44)
[2021-06-14] MEDS: COLLAGENASE 5 GM TUBE TOP SCH (08:44)
[2021-06-14] MEDS: ASCORBIC ACID 500 MG TAB NG SCH ×2 (08:44→16:07)
[2021-06-14] MEDS: ZINC SULFATE 220 MG CAP PO SCH (08:44)
[2021-06-14] MEDS: BALSAM PERU/CASTOR OIL 60 GM OINT...G. TP SCH (08:44)
[2021-06-14] MEDS: ENOXAPARIN INJ 80 MG/0.8 ML SYR SC SCH ×2 (08:44→18:50)
[2021-06-14] MEDS: FAMOTIDINE 20 MG/2 ML VIAL IV SCH ×2 (08:44→16:07)
[2021-06-14] MEDS: CHOLECALCIFEROL 400 UNIT TAB PO SCH (08:44)
[2021-06-14 08:57] LABS: ABG PH 7.51 (7.35-7.45)
[2021-06-14 08:58] LABS: ABG HCO3 46 mmol/L (22-26); ABG PCO2 58 mmHg (35-45); ABG PO2 67 mmHg (80-105); ABG TCO2 48
[2021-06-14] MEDS: ROCURONIUM BROMIDE 1,250 MG in SODIUM CHLORIDE 0.9% 250ML 125 ML IV SCH (10:15)
[2021-06-14] MEDS: ACETAZOLAMIDE SODIUM 500 MG/VIAL IV SCH ×2 (12:21→20:08)
[2021-06-14] MEDS: ACETAMINOPHEN 325 MG TAB NG PRN (17:14)
[2021-06-14] MEDS: PROPOFOL IV EMULSION 100 ML IV SCH (19:19)
[2021-06-14] MEDS: INSULIN GLARGINE 100 UNITS/ML VIAL SQ SCH (20:28)
[2021-06-14] MEDS ORDERED: POTASSIUM CHLORIDE 20MEQ/100ML 200 ML IV ONE (21:00)
[2021-06-15] VITALS (26 sets, daily range): BP systolic 103–120; BP diastolic 47–61
[2021-06-15] MEDS: PROPOFOL IV EMULSION 100 ML IV SCH ×7 (01:45→15:05)
[2021-06-15] MEDS ORDERED: SODIUM CHLORIDE 0.9% 250ML 250 ML ONE (02:34)
[2021-06-15 04:13] LABS: BASOPHILS # (AUTO) 0.1 (0.0-0.1); EOSINOPHILS # (AUTO) 1.8 (0.0-0.4); EOSINOPHILS % 17.1 % (0.0-6.0); HEMATOCRIT 29.2 % (34.2-44.1); HEMOGLOBIN 8.7 g/dL (12.0-16.0); LYMPHOCYTES # (AUTO) 1.5 (1.0-3.2); LYMPHOCYTES % 14.4 % (18.0-39.1); MEAN CORPUSCULAR HEMOGLOBIN 27.4 pg (28-32); MEAN CORPUSCULAR HGB CONC 29.8 g/dL (31-35); MEAN CORPUSCULAR VOLUME 91.8 fL (81-99); MONOCYTES # (AUTO) 0.8 (0.2-0.8); MONOCYTES % 7.4 % (4.4-11.3); NEUTROPHILS # (AUTO) 6.2 (2.1-6.9); NEUTROPHILS % 59.1 % (38.7-80.0); PLATELET COUNT 557 x10e3/uL (140-360); RED BLOOD COUNT 3.18 x10e6/uL (3.6-5.1); RED CELL DISTRIBUTION WIDTH 15.9 % (11.7-14.4)
[2021-06-15 04:40] LABS: ALBUMIN 3.1 g/dL (3.5-5.0); ALBUMIN/GLOBULIN RATIO 0.9 (0.8-2.0); ANION GAP 14.4 mmol/L (8-16); CALCIUM 9.5 mg/dL (8.4-10.2); CREATININE, SERUM 0.52 mg/dL (0.57-1.11); POTASSIUM 3.4 mmol/L (3.5-5.1)
[2021-06-15] MEDS ORDERED: POTASSIUM CHLORIDE 20MEQ/100ML 100 ML IV ONE (05:00)
[2021-06-15] MEDS: FENTANYL 2000MCG/NS 250 250 ML IV PRN ×3 (05:20→19:32)
[2021-06-15] MEDS: MIDAZOLAM HCL 5MG/ML 10ML VIAL 100 ML IV PRN ×4 (05:20→20:40)
[2021-06-15] MEDS: INSULIN REGULAR, HUMAN 100 UNIT/1 ML SQ SCH ×4 (06:01→23:25)
[2021-06-15 08:20] LABS: ABG HCO3 36 mmol/L (22-26); ABG PCO2 50 mmHg (35-45); ABG PH 7.47 (7.35-7.45); ABG PO2 74 mmHg (80-105); ABG TCO2 38
[2021-06-15] MEDS: ENOXAPARIN INJ 80 MG/0.8 ML SYR SC SCH ×2 (08:46→19:37)
[2021-06-15] MEDS: FAMOTIDINE 20 MG/2 ML VIAL IV SCH ×2 (08:46→15:47)
[2021-06-15] MEDS: BALSAM PERU/CASTOR OIL 60 GM OINT...G. TP SCH (08:46)
[2021-06-15] MEDS: CHOLECALCIFEROL 400 UNIT TAB PO SCH (08:46)
[2021-06-15] MEDS: ACETAZOLAMIDE SODIUM 500 MG/VIAL IV SCH (08:46)
[2021-06-15] MEDS: ASCORBIC ACID 500 MG TAB NG SCH ×2 (08:46→15:47)
[2021-06-15] MEDS: ZINC SULFATE 220 MG CAP PO SCH (08:46)
[2021-06-15] MEDS: COLLAGENASE 5 GM TUBE TOP SCH (08:46)
[2021-06-15] MEDS: ROCURONIUM BROMIDE 1,250 MG in SODIUM CHLORIDE 0.9% 250ML 125 ML IV SCH (11:36)
[2021-06-15] MEDS ORDERED: ROCURONIUM BROMIDE 10 MG/ML 5ML VIAL IV ONE (12:37)
[2021-06-15] MEDS ORDERED: POVIDONE IODINE 0.05% 0.05 % ML PO ONE (12:37)
[2021-06-15] MEDS: PROPOFOL IV EMULSION 50 ML IV SCH ×2 (15:30→22:56)
[2021-06-15] MEDS ORDERED: BUPIVACAINE HCL 0.5% INJ 30 ML VIAL INJ ONE (16:58)
[2021-06-15] MEDS: INSULIN GLARGINE 100 UNITS/ML VIAL SQ SCH (20:01)
[2021-06-16] VITALS (26 sets, daily range): BP systolic 98–128; BP diastolic 40–82
[2021-06-16] MEDS: PROPOFOL IV EMULSION 50 ML IV PRN ×11 (00:49→21:22)
[2021-06-16] MEDS: FENTANYL 2000MCG/NS 250 250 ML IV PRN ×4 (02:01→23:39)
[2021-06-16] MEDS: MIDAZOLAM HCL 5MG/ML 10ML VIAL 100 ML IV PRN ×4 (02:04→18:29)
[2021-06-16 04:42] LABS: BASOPHILS # (AUTO) 0.1 (0.0-0.1); BASOPHILS % 0.9 % (0.0-1.0); EOSINOPHILS # (AUTO) 1.2 (0.0-0.4); EOSINOPHILS % 12.6 % (0.0-6.0); HEMATOCRIT 27.9 % (34.2-44.1); HEMOGLOBIN 8.2 g/dL (12.0-16.0); LYMPHOCYTES # (AUTO) 1.4 (1.0-3.2); LYMPHOCYTES % 14.5 % (18.0-39.1); MEAN CORPUSCULAR HEMOGLOBIN 27.4 pg (28-32); MEAN CORPUSCULAR HGB CONC 29.4 g/dL (31-35); MEAN CORPUSCULAR VOLUME 93.3 fL (81-99); MONOCYTES # (AUTO) 0.7 (0.2-0.8); MONOCYTES % 7.3 % (4.4-11.3); NEUTROPHILS # (AUTO) 6.1 (2.1-6.9); NEUTROPHILS % 63.7 % (38.7-80.0); PLATELET COUNT 491 x10e3/uL (140-360); RED BLOOD COUNT 2.99 x10e6/uL (3.6-5.1); RED CELL DISTRIBUTION WIDTH 16.1 % (11.7-14.4)
[2021-06-16 05:14] LABS: ALBUMIN 2.9 g/dL (3.5-5.0); ALBUMIN/GLOBULIN RATIO 0.9 (0.8-2.0); ANION GAP 12.1 mmol/L (8-16); CALCIUM 8.9 mg/dL (8.4-10.2); CREATININE, SERUM 0.46 mg/dL (0.57-1.11); POTASSIUM 3.1 mmol/L (3.5-5.1)
[2021-06-16] MEDS: INSULIN REGULAR, HUMAN 100 UNIT/1 ML SQ SCH ×4 (05:28→23:15)
[2021-06-16] MEDS ORDERED: POTASSIUM CHLORIDE 20MEQ/100ML 100 ML IV SCH (06:00)
[2021-06-16] MEDS ORDERED: POTASSIUM CHLORIDE 20MEQ/100ML 200 ML IV ONE (07:45)
[2021-06-16] MEDS: POTASSIUM CHLORIDE 20MEQ/100ML 100 ML IV SCH ×2 (08:54→11:00)
[2021-06-16] MEDS: BALSAM PERU/CASTOR OIL 60 GM OINT...G. TP SCH (09:00)
[2021-06-16] MEDS: COLLAGENASE 5 GM TUBE TOP SCH (09:00)
[2021-06-16] MEDS: ASCORBIC ACID 500 MG TAB NG SCH ×2 (09:00→17:09)
[2021-06-16] MEDS: ENOXAPARIN INJ 80 MG/0.8 ML SYR SC SCH ×2 (09:00→21:28)
[2021-06-16] MEDS: FAMOTIDINE 20 MG/2 ML VIAL IV SCH ×2 (09:17→17:09)
[2021-06-16] MEDS: ZINC SULFATE 220 MG CAP PO SCH (12:04)
[2021-06-16] MEDS: CHOLECALCIFEROL 400 UNIT TAB PO SCH (12:04)
[2021-06-16] MEDS: ACETAMINOPHEN 325 MG TAB NG PRN (14:32)
[2021-06-16] MEDS: INSULIN GLARGINE 100 UNITS/ML VIAL SQ SCH (21:30)
[2021-06-17] VITALS (25 sets, daily range): BP systolic 97–122; BP diastolic 52–75
[2021-06-17] MEDS: PROPOFOL IV EMULSION 50 ML IV PRN ×9 (00:28→20:38)
[2021-06-17] MEDS: MIDAZOLAM HCL 5MG/ML 10ML VIAL 100 ML IV PRN ×3 (02:05→19:30)
[2021-06-17] MEDS: ACETAMINOPHEN 325 MG TAB NG PRN ×2 (03:44→15:02)
[2021-06-17 04:00] LABS: BASOPHILS # (AUTO) 0.1 (0.0-0.1); BASOPHILS % 0.7 % (0.0-1.0); EOSINOPHILS # (AUTO) 0.9 (0.0-0.4); EOSINOPHILS % 7.9 % (0.0-6.0); HEMATOCRIT 27.6 % (34.2-44.1); HEMOGLOBIN 8.5 g/dL (12.0-16.0); LYMPHOCYTES # (AUTO) 1.4 (1.0-3.2); LYMPHOCYTES % 12.7 % (18.0-39.1); MEAN CORPUSCULAR HEMOGLOBIN 28.2 pg (28-32); MEAN CORPUSCULAR HGB CONC 30.8 g/dL (31-35); MEAN CORPUSCULAR VOLUME 91.7 fL (81-99); MONOCYTES # (AUTO) 0.9 (0.2-0.8); MONOCYTES % 8.4 % (4.4-11.3); NEUTROPHILS # (AUTO) 7.7 (2.1-6.9); NEUTROPHILS % 69.3 % (38.7-80.0); PLATELET COUNT 456 x10e3/uL (140-360); RED BLOOD COUNT 3.01 x10e6/uL (3.6-5.1); RED CELL DISTRIBUTION WIDTH 15.9 % (11.7-14.4)
[2021-06-17 04:20] LABS: ALBUMIN 2.8 g/dL (3.5-5.0); ALBUMIN/GLOBULIN RATIO 0.7 (0.8-2.0); ANION GAP 11.8 mmol/L (8-16); CALCIUM 8.7 mg/dL (8.4-10.2); CREATININE, SERUM 0.44 mg/dL (0.57-1.11); MAGNESIUM 1.7 MG/DL (1.3-2.1); POTASSIUM 3.8 mmol/L (3.5-5.1)
[2021-06-17] MEDS: INSULIN REGULAR, HUMAN 100 UNIT/1 ML SQ SCH ×3 (05:21→18:00)
[2021-06-17] MEDS: FENTANYL 2000MCG/NS 250 250 ML IV PRN ×3 (06:10→21:35)
[2021-06-17 08:04] LABS: ABG PCO2 46 mmHg (35-45); ABG PH 7.43 (7.35-7.45)
[2021-06-17 08:05] LABS: ABG HCO3 31 mmol/L (22-26); ABG PO2 67 mmHg (80-105); ABG TCO2 32
[2021-06-17] MEDS: FAMOTIDINE 20 MG/2 ML VIAL IV SCH ×2 (08:11→16:50)
[2021-06-17] MEDS: ZINC SULFATE 220 MG CAP PO SCH (08:11)
[2021-06-17] MEDS: CHOLECALCIFEROL 400 UNIT TAB PO SCH (08:11)
[2021-06-17] MEDS: ASCORBIC ACID 500 MG TAB NG SCH ×2 (08:11→16:50)
[2021-06-17] MEDS: BALSAM PERU/CASTOR OIL 60 GM OINT...G. TP SCH (08:14)
[2021-06-17] MEDS: COLLAGENASE 5 GM TUBE TOP SCH (08:14)
[2021-06-17] MEDS: ENOXAPARIN INJ 80 MG/0.8 ML SYR SC SCH ×2 (08:14→21:44)
[2021-06-17] MEDS ORDERED: FUROSEMIDE INJ 10 MG/ML 4 ML VIAL IV ONE (13:00)
[2021-06-17] MEDS ORDERED: ACETAMINOPHEN 1000 MG/100 ML IV STA (18:20)
[2021-06-17] MEDS ORDERED: ALBUMIN 25% 25GM 100ML 0.25 GM/ML BTL IV ONE (18:30)
[2021-06-17] MEDS ORDERED: ACETAMINOPHEN 1000 MG/100 ML 100 ML IV ONE (19:02)
[2021-06-17] MEDS: INSULIN GLARGINE 100 UNITS/ML VIAL SQ SCH (21:45)
[2021-06-18] VITALS (26 sets, daily range): BP systolic 99–124; BP diastolic 48–73
[2021-06-18] MEDS: INSULIN REGULAR, HUMAN 100 UNIT/1 ML SQ SCH ×4 (00:05→17:53)
[2021-06-18] MEDS: MIDAZOLAM HCL 5MG/ML 10ML VIAL 100 ML IV PRN ×3 (01:46→16:26)
[2021-06-18] MEDS: PROPOFOL IV EMULSION 50 ML IV PRN ×6 (02:50→14:26)
[2021-06-18 05:09] LABS: BASOPHILS # (AUTO) 0.1 (0.0-0.1); BASOPHILS % 1.2 % (0.0-1.0); EOSINOPHILS % 11.6 % (0.0-6.0); HEMATOCRIT 25.4 % (34.2-44.1); HEMOGLOBIN 7.7 g/dL (12.0-16.0); LYMPHOCYTES # (AUTO) 1.7 (1.0-3.2); MEAN CORPUSCULAR HEMOGLOBIN 28.1 pg (28-32); MEAN CORPUSCULAR HGB CONC 30.3 g/dL (31-35); MEAN CORPUSCULAR VOLUME 92.7 fL (81-99); MONOCYTES # (AUTO) 0.7 (0.2-0.8); NEUTROPHILS # (AUTO) 4.7 (2.1-6.9); NEUTROPHILS % 57.2 % (38.7-80.0); PLATELET COUNT 425 x10e3/uL (140-360); RED BLOOD COUNT 2.74 x10e6/uL (3.6-5.1); RED CELL DISTRIBUTION WIDTH 16.3 % (11.7-14.4)
[2021-06-18 05:26] LABS: ALBUMIN 2.8 g/dL (3.5-5.0); ALBUMIN/GLOBULIN RATIO 0.8 (0.8-2.0); ANION GAP 11.3 mmol/L (8-16); CALCIUM 9.1 mg/dL (8.4-10.2); CREATININE, SERUM 0.45 mg/dL (0.57-1.11); POTASSIUM 3.3 mmol/L (3.5-5.1)
[2021-06-18] MEDS ORDERED: POTASSIUM CHLORIDE 20MEQ/100ML 100 ML IV ONE (06:00)
[2021-06-18] MEDS ORDERED: IBUPROFEN 800MG/ 200ML 800 MG in SODIUM CHLORIDE 0.9% 250ML 250 ML IV PRN (07:57)
[2021-06-18] MEDS ORDERED: IBUPROFEN 800MG/ 200ML 200 ML IV ONE (08:27)
[2021-06-18] MEDS ORDERED: VANCOMYCIN 1GM/NS 250 ML 250 ML IV SCH (08:45)
[2021-06-18] MEDS: FAMOTIDINE 20 MG/2 ML VIAL IV SCH ×2 (08:49→16:25)
[2021-06-18] MEDS: ASCORBIC ACID 500 MG TAB NG SCH ×2 (08:50→16:25)
[2021-06-18] MEDS: ZINC SULFATE 220 MG CAP PO SCH (08:52)
[2021-06-18] MEDS: BALSAM PERU/CASTOR OIL 60 GM OINT...G. TP SCH (08:52)
[2021-06-18] MEDS: ENOXAPARIN INJ 80 MG/0.8 ML SYR SC SCH ×2 (08:52→21:00)
[2021-06-18] MEDS: CHOLECALCIFEROL 400 UNIT TAB PO SCH (08:52)
[2021-06-18] MEDS: COLLAGENASE 5 GM TUBE TOP SCH (08:52)
[2021-06-18] MEDS: FUROSEMIDE INJ 10 MG/ML 4 ML VIAL IV SCH (08:53)
[2021-06-18] MEDS: CEFEPIME 1 GM in SODIUM CHLORIDE 0.9% 50ML 50 ML IV SCH ×2 (10:04→21:00)
[2021-06-18] MEDS: Vancomycin IV 1 GM in SODIUM CHLORIDE 0.9% 250ML 250 ML IV SCH ×2 (10:42→22:08)
[2021-06-18] MEDS ORDERED: ALBUMIN 25% 25GM 100ML 0.25 GM/ML BTL IV ONE (11:00)
[2021-06-18 11:12] LABS: ABG HCO3 31 mmol/L (22-26); ABG PCO2 46 mmHg (35-45); ABG PH 7.44 (7.35-7.45); ABG PO2 70 mmHg (80-105); ABG TCO2 33
[2021-06-18] MEDS: FENTANYL 2000MCG/NS 250 250 ML IV PRN ×2 (13:01→22:03)
[2021-06-18] MEDS: PROPOFOL IV EMULSION 10MG/ML 100 ML IV PRN ×3 (16:23→20:22)
[2021-06-18] MEDS ORDERED: FUROSEMIDE INJ 10 MG/ML 4 ML VIAL IV ONE (18:45)
[2021-06-18] MEDS: INSULIN GLARGINE 100 UNITS/ML VIAL SQ SCH (21:00)
[2021-06-19] VITALS (27 sets, daily range): BP systolic 94–126; BP diastolic 46–70
[2021-06-19] MEDS: INSULIN REGULAR, HUMAN 100 UNIT/1 ML SQ SCH ×4 (00:12→17:15)
[2021-06-19 05:10] LABS: BASOPHILS # (AUTO) 0.1 (0.0-0.1); BASOPHILS % 1.1 % (0.0-1.0); EOSINOPHILS # (AUTO) 1.1 (0.0-0.4); EOSINOPHILS % 12.2 % (0.0-6.0); HEMOGLOBIN 7.8 g/dL (12.0-16.0); LYMPHOCYTES # (AUTO) 1.3 (1.0-3.2); LYMPHOCYTES % 14.1 % (18.0-39.1); MEAN CORPUSCULAR HEMOGLOBIN 27.2 pg (28-32); MEAN CORPUSCULAR HGB CONC 28.9 g/dL (31-35); MEAN CORPUSCULAR VOLUME 94.1 fL (81-99); MONOCYTES # (AUTO) 0.9 (0.2-0.8); MONOCYTES % 9.7 % (4.4-11.3); NEUTROPHILS # (AUTO) 5.8 (2.1-6.9); NEUTROPHILS % 62.1 % (38.7-80.0); PLATELET COUNT 414 x10e3/uL (140-360); RED BLOOD COUNT 2.87 x10e6/uL (3.6-5.1); RED CELL DISTRIBUTION WIDTH 16.3 % (11.7-14.4)
[2021-06-19 05:18] LABS: ALBUMIN 3.1 g/dL (3.5-5.0); ALBUMIN/GLOBULIN RATIO 0.8 (0.8-2.0); ANION GAP 12.3 mmol/L (8-16); CREATININE, SERUM 0.5 mg/dL (0.57-1.11); POTASSIUM 3.3 mmol/L (3.5-5.1)
[2021-06-19] MEDS: FENTANYL 2000MCG/NS 250 250 ML IV PRN ×2 (06:11→14:52)
[2021-06-19] MEDS ORDERED: POTASSIUM CHLORIDE 20MEQ/100ML 100 ML IV ONE ×2 (07:30→17:00)
[2021-06-19] MEDS: POTASSIUM CHLORIDE 20MEQ/100ML 100 ML IV PRN (07:35)
[2021-06-19] MEDS: PROPOFOL IV EMULSION 10MG/ML 100 ML IV PRN ×8 (07:35→22:50)
[2021-06-19] MEDS: ZINC SULFATE 220 MG CAP PO SCH (07:36)
[2021-06-19] MEDS: ENOXAPARIN INJ 80 MG/0.8 ML SYR SC SCH ×2 (07:36→20:45)
[2021-06-19] MEDS: ASCORBIC ACID 500 MG TAB NG SCH ×2 (07:36→16:54)
[2021-06-19] MEDS: COLLAGENASE 5 GM TUBE TOP SCH (07:36)
[2021-06-19] MEDS: CEFEPIME 1 GM in SODIUM CHLORIDE 0.9% 50ML 50 ML IV SCH ×2 (07:36→20:44)
[2021-06-19] MEDS: FUROSEMIDE INJ 10 MG/ML 4 ML VIAL IV SCH (07:36)
[2021-06-19] MEDS: MIDAZOLAM HCL 5MG/ML 10ML VIAL 100 ML IV PRN ×2 (07:36→22:15)
[2021-06-19] MEDS: CHOLECALCIFEROL 400 UNIT TAB PO SCH (07:36)
[2021-06-19] MEDS: FAMOTIDINE 20 MG/2 ML VIAL IV SCH ×2 (07:36→16:54)
[2021-06-19] MEDS: BALSAM PERU/CASTOR OIL 60 GM OINT...G. TP SCH (07:36)
[2021-06-19 08:39] LABS: ABG HCO3 33 mmol/L (22-26); ABG PCO2 65 mmHg (35-45); ABG PH 7.31 (7.35-7.45); ABG PO2 86 mmHg (80-105); ABG TCO2 36
[2021-06-19] MEDS: Vancomycin IV 1 GM in SODIUM CHLORIDE 0.9% 250ML 250 ML IV SCH ×2 (09:17→22:48)
[2021-06-19] MEDS: INSULIN GLARGINE 100 UNITS/ML VIAL SQ SCH (20:45)
[2021-06-19] MEDS ORDERED: SODIUM CHLORIDE 0.9% 250ML 250 ML ONE (21:14)
[2021-06-20] VITALS (27 sets, daily range): BP systolic 112–154; BP diastolic 54–95
[2021-06-20] MEDS: INSULIN REGULAR, HUMAN 100 UNIT/1 ML SQ SCH ×4 (00:19→17:55)
[2021-06-20] MEDS: ACETAMINOPHEN 325 MG TAB NG PRN (01:30)
[2021-06-20] MEDS: PROPOFOL IV EMULSION 10MG/ML 100 ML IV PRN ×7 (02:13→20:01)
[2021-06-20 04:36] LABS: BASOPHILS # (AUTO) 0.1 (0.0-0.1); BASOPHILS % 0.7 % (0.0-1.0); EOSINOPHILS # (AUTO) 1.1 (0.0-0.4); EOSINOPHILS % 10.6 % (0.0-6.0); LYMPHOCYTES # (AUTO) 1.3 (1.0-3.2); LYMPHOCYTES % 12.5 % (18.0-39.1); MEAN CORPUSCULAR HEMOGLOBIN 27.2 pg (28-32); MEAN CORPUSCULAR HGB CONC 29.6 g/dL (31-35); MEAN CORPUSCULAR VOLUME 91.8 fL (81-99); MONOCYTES # (AUTO) 0.8 (0.2-0.8); MONOCYTES % 7.7 % (4.4-11.3); NEUTROPHILS # (AUTO) 6.9 (2.1-6.9); NEUTROPHILS % 67.7 % (38.7-80.0); PLATELET COUNT 382 x10e3/uL (140-360); RED BLOOD COUNT 2.94 x10e6/uL (3.6-5.1)
[2021-06-20 04:53] LABS: ALBUMIN/GLOBULIN RATIO 0.8 (0.8-2.0); CALCIUM 9.5 mg/dL (8.4-10.2); CREATININE, SERUM 0.49 mg/dL (0.57-1.11)
[2021-06-20] MEDS: FENTANYL 2000MCG/NS 250 250 ML IV PRN (05:20)
[2021-06-20] MEDS: COLLAGENASE 5 GM TUBE TOP SCH (06:41)
[2021-06-20] MEDS: CEFEPIME 1 GM in SODIUM CHLORIDE 0.9% 50ML 50 ML IV SCH ×2 (08:00→20:00)
[2021-06-20] MEDS: BALSAM PERU/CASTOR OIL 60 GM OINT...G. TP SCH (08:00)
[2021-06-20] MEDS: ASCORBIC ACID 500 MG TAB NG SCH ×2 (08:00→17:26)
[2021-06-20] MEDS: ZINC SULFATE 220 MG CAP PO SCH (08:00)
[2021-06-20] MEDS: ENOXAPARIN INJ 80 MG/0.8 ML SYR SC SCH ×2 (08:00→20:00)
[2021-06-20] MEDS: FAMOTIDINE 20 MG/2 ML VIAL IV SCH ×2 (08:00→17:26)
[2021-06-20] MEDS: FUROSEMIDE INJ 10 MG/ML 4 ML VIAL IV SCH (08:00)
[2021-06-20] MEDS: CHOLECALCIFEROL 400 UNIT TAB PO SCH (08:00)
[2021-06-20] MEDS: Vancomycin IV 1 GM in SODIUM CHLORIDE 0.9% 250ML 250 ML IV SCH ×2 (09:33→21:27)
[2021-06-20] MEDS ORDERED: ACETAZOLAMIDE SODIUM 500 MG/VIAL IV ONE (14:00)
[2021-06-20 15:53] LABS: ABG HCO3 34 mmol/L (22-26); ABG PCO2 44 mmHg (35-45); ABG PO2 106 mmHg (80-105); ABG TCO2 36
[2021-06-20] MEDS: INSULIN GLARGINE 100 UNITS/ML VIAL SQ SCH (20:00)
[2021-06-21] VITALS (30 sets, daily range): BP systolic 104–156; BP diastolic 62–98
[2021-06-21 05:33] LABS: BASOPHILS # (AUTO) 0.1 (0.0-0.1); BASOPHILS % 0.8 % (0.0-1.0); EOSINOPHILS # (AUTO) 0.1 (0.0-0.4); EOSINOPHILS % 0.8 % (0.0-6.0); HEMATOCRIT 30.1 % (34.2-44.1); LYMPHOCYTES % 8.7 % (18.0-39.1); MEAN CORPUSCULAR HEMOGLOBIN 26.9 pg (28-32); MEAN CORPUSCULAR HGB CONC 29.9 g/dL (31-35); MEAN CORPUSCULAR VOLUME 90.1 fL (81-99); MONOCYTES # (AUTO) 0.9 (0.2-0.8); MONOCYTES % 7.9 % (4.4-11.3); NEUTROPHILS % 81.2 % (38.7-80.0); PLATELET COUNT 549 x10e3/uL (140-360); RED BLOOD COUNT 3.34 x10e6/uL (3.6-5.1); RED CELL DISTRIBUTION WIDTH 16.1 % (11.7-14.4)
[2021-06-21 05:48] LABS: ALBUMIN 3.1 g/dL (3.5-5.0); ALBUMIN/GLOBULIN RATIO 0.8 (0.8-2.0); ANION GAP 14.8 mmol/L (8-16); CALCIUM 9.8 mg/dL (8.4-10.2); CREATININE, SERUM 0.44 mg/dL (0.57-1.11); POTASSIUM 3.8 mmol/L (3.5-5.1)
[2021-06-21] MEDS: INSULIN REGULAR, HUMAN 100 UNIT/1 ML SQ SCH ×4 (06:04→17:13)
[2021-06-21] MEDS: PROPOFOL IV EMULSION 10MG/ML 100 ML IV PRN ×3 (08:09→14:10)
[2021-06-21] MEDS: ENOXAPARIN INJ 80 MG/0.8 ML SYR SC SCH ×2 (08:17→21:50)
[2021-06-21] MEDS: COLLAGENASE 5 GM TUBE TOP SCH (08:17)
[2021-06-21] MEDS: FUROSEMIDE INJ 10 MG/ML 4 ML VIAL IV SCH (08:17)
[2021-06-21] MEDS: BALSAM PERU/CASTOR OIL 60 GM OINT...G. TP SCH (08:17)
[2021-06-21] MEDS: FAMOTIDINE 20 MG/2 ML VIAL IV SCH ×2 (08:17→16:37)
[2021-06-21] MEDS: CHOLECALCIFEROL 400 UNIT TAB PO SCH (08:17)
[2021-06-21] MEDS: CEFEPIME 1 GM in SODIUM CHLORIDE 0.9% 50ML 50 ML IV SCH ×2 (08:17→21:40)
[2021-06-21] MEDS: ASCORBIC ACID 500 MG TAB NG SCH ×2 (08:17→16:37)
[2021-06-21] MEDS: ZINC SULFATE 220 MG CAP PO SCH (08:17)
[2021-06-21] MEDS: Vancomycin IV 1 GM in SODIUM CHLORIDE 0.9% 250ML 250 ML IV SCH ×2 (09:34→22:00)
[2021-06-21] MEDS: ACETAMINOPHEN 325 MG TAB NG PRN ×2 (10:21→16:37)
[2021-06-21] MEDS: FENTANYL 2000MCG/NS 250 250 ML IV SCH ×2 (10:45→11:33)
[2021-06-21] MEDS: METOCLOPRAMIDE HCL 10 MG/2ML VIAL IV SCH ×2 (11:03→16:37)
[2021-06-21] MEDS: INSULIN GLARGINE 100 UNITS/ML VIAL SQ SCH (21:52)
[2021-06-22] VITALS (26 sets, daily range): BP systolic 118–154; BP diastolic 67–94
[2021-06-22 04:59] LABS: BASOPHILS # (AUTO) 0.1 (0.0-0.1); BASOPHILS % 1.1 % (0.0-1.0); EOSINOPHILS # (AUTO) 0.2 (0.0-0.4); EOSINOPHILS % 2.4 % (0.0-6.0); HEMATOCRIT 28.3 % (34.2-44.1); HEMOGLOBIN 8.2 g/dL (12.0-16.0); LYMPHOCYTES # (AUTO) 1.4 (1.0-3.2); LYMPHOCYTES % 15.4 % (18.0-39.1); MEAN CORPUSCULAR HEMOGLOBIN 26.3 pg (28-32); MEAN CORPUSCULAR VOLUME 90.7 fL (81-99); MONOCYTES % 10.4 % (4.4-11.3); NEUTROPHILS # (AUTO) 6.5 (2.1-6.9); NEUTROPHILS % 70.1 % (38.7-80.0); PLATELET COUNT 566 x10e3/uL (140-360); RED BLOOD COUNT 3.12 x10e6/uL (3.6-5.1); RED CELL DISTRIBUTION WIDTH 16.2 % (11.7-14.4)
[2021-06-22 05:24] LABS: ALBUMIN 3.1 g/dL (3.5-5.0); ALBUMIN/GLOBULIN RATIO 0.9 (0.8-2.0); CALCIUM 9.4 mg/dL (8.4-10.2); CREATININE, SERUM 0.47 mg/dL (0.57-1.11)
[2021-06-22] MEDS: INSULIN REGULAR, HUMAN 100 UNIT/1 ML SQ SCH ×5 (06:00→23:59)
[2021-06-22] MEDS: METOCLOPRAMIDE HCL 10 MG/2ML VIAL IV SCH ×5 (06:00→23:58)
[2021-06-22] MEDS: COLLAGENASE 5 GM TUBE TOP SCH (09:39)
[2021-06-22] MEDS: BALSAM PERU/CASTOR OIL 60 GM OINT...G. TP SCH (09:39)
[2021-06-22] MEDS: CEFEPIME 1 GM in SODIUM CHLORIDE 0.9% 50ML 50 ML IV SCH ×2 (09:39→21:10)
[2021-06-22] MEDS: Vancomycin IV 1 GM in SODIUM CHLORIDE 0.9% 250ML 250 ML IV SCH ×2 (09:39→21:35)
[2021-06-22] MEDS: CHOLECALCIFEROL 400 UNIT TAB PO SCH (09:39)
[2021-06-22] MEDS: ENOXAPARIN INJ 80 MG/0.8 ML SYR SC SCH ×2 (09:39→21:10)
[2021-06-22] MEDS: FAMOTIDINE 20 MG/2 ML VIAL IV SCH ×2 (09:39→18:09)
[2021-06-22] MEDS: ZINC SULFATE 220 MG CAP PO SCH (09:39)
[2021-06-22] MEDS: ASCORBIC ACID 500 MG TAB NG SCH ×2 (09:39→18:09)
[2021-06-22] MEDS: FUROSEMIDE INJ 10 MG/ML 4 ML VIAL IV SCH (09:39)
[2021-06-22] MEDS: FENTANYL 2000MCG/NS 250 250 ML IV SCH (10:28)
[2021-06-22] MEDS ORDERED: POTASSIUM CHLORIDE 20MEQ/100ML 200 ML IV ONE (12:45)
[2021-06-22] MEDS: ACETAMINOPHEN 325 MG TAB NG PRN ×2 (15:56→22:28)
[2021-06-22] MEDS ORDERED: IOPAMIDOL 370 MG/ML 200 ML INFUS..BTL INJ ONE (17:30)
[2021-06-22] MEDS ORDERED: SODIUM CHLORIDE 0.9% 50ML 50 ML ONE (17:30)
[2021-06-22] MEDS: INSULIN GLARGINE 100 UNITS/ML VIAL SQ SCH (21:11)
[2021-06-23] VITALS (25 sets, daily range): BP systolic 129–152; BP diastolic 70–87
[2021-06-23 04:47] LABS: BASOPHILS # (AUTO) 0.1 (0.0-0.1); EOSINOPHILS % 0.6 % (0.0-6.0); HEMATOCRIT 27.8 % (34.2-44.1); HEMOGLOBIN 8.1 g/dL (12.0-16.0); LYMPHOCYTES # (AUTO) 1.2 (1.0-3.2); LYMPHOCYTES % 17.2 % (18.0-39.1); MEAN CORPUSCULAR HEMOGLOBIN 26.5 pg (28-32); MEAN CORPUSCULAR HGB CONC 29.1 g/dL (31-35); MEAN CORPUSCULAR VOLUME 90.8 fL (81-99); MONOCYTES % 13.4 % (4.4-11.3); NEUTROPHILS # (AUTO) 4.9 (2.1-6.9); PLATELET COUNT 528 x10e3/uL (140-360); RED BLOOD COUNT 3.06 x10e6/uL (3.6-5.1); RED CELL DISTRIBUTION WIDTH 15.9 % (11.7-14.4)
[2021-06-23 05:10] LABS: ALBUMIN 3.1 g/dL (3.5-5.0); ALBUMIN/GLOBULIN RATIO 0.9 (0.8-2.0); CALCIUM 9.3 mg/dL (8.4-10.2); CREATININE, SERUM 0.47 mg/dL (0.57-1.11)
[2021-06-23] MEDS: METOCLOPRAMIDE HCL 10 MG/2ML VIAL IV SCH ×3 (06:00→17:05)
[2021-06-23] MEDS: INSULIN REGULAR, HUMAN 100 UNIT/1 ML SQ SCH ×3 (06:00→17:30)
[2021-06-23] MEDS: FENTANYL 2000MCG/NS 250 250 ML IV SCH (09:24)
[2021-06-23] MEDS: CHOLECALCIFEROL 400 UNIT TAB PO SCH (09:24)
[2021-06-23] MEDS: ENOXAPARIN INJ 80 MG/0.8 ML SYR SC SCH ×2 (09:24→21:03)
[2021-06-23] MEDS: CEFEPIME 1 GM in SODIUM CHLORIDE 0.9% 50ML 50 ML IV SCH ×2 (09:24→21:03)
[2021-06-23] MEDS: Vancomycin IV 1 GM in SODIUM CHLORIDE 0.9% 250ML 250 ML IV SCH ×2 (09:24→21:03)
[2021-06-23] MEDS: ASCORBIC ACID 500 MG TAB NG SCH ×2 (09:24→16:40)
[2021-06-23] MEDS: FAMOTIDINE 20 MG/2 ML VIAL IV SCH ×2 (09:24→16:39)
[2021-06-23] MEDS: FUROSEMIDE INJ 10 MG/ML 4 ML VIAL IV SCH (09:24)
[2021-06-23] MEDS: ZINC SULFATE 220 MG CAP PO SCH (09:24)
[2021-06-23] MEDS: BALSAM PERU/CASTOR OIL 60 GM OINT...G. TP SCH (09:24)
[2021-06-23] MEDS: COLLAGENASE 5 GM TUBE TOP SCH (09:24)
[2021-06-23] MEDS: POTASSIUM CHLORIDE 20MEQ/100ML 100 ML IV PRN ×2 (11:06→17:15)
[2021-06-23] MEDS: ACETAMINOPHEN 325 MG TAB NG PRN (17:15)
[2021-06-23 19:41] LABS: BASOPHILS # (AUTO) 0.1 (0.0-0.1); BASOPHILS % 1.2 % (0.0-1.0); EOSINOPHILS # (AUTO) 0.1 (0.0-0.4); HEMATOCRIT 27.7 % (34.2-44.1); HEMOGLOBIN 8.1 g/dL (12.0-16.0); LYMPHOCYTES # (AUTO) 1.4 (1.0-3.2); LYMPHOCYTES % 20.8 % (18.0-39.1); MEAN CORPUSCULAR HGB CONC 29.2 g/dL (31-35); MEAN CORPUSCULAR VOLUME 89.1 fL (81-99); MONOCYTES # (AUTO) 0.9 (0.2-0.8); MONOCYTES % 13.4 % (4.4-11.3); NEUTROPHILS # (AUTO) 4.3 (2.1-6.9); PLATELET COUNT 258 x10e3/uL (140-360); RED BLOOD COUNT 3.11 x10e6/uL (3.6-5.1)
[2021-06-23 20:04] LABS: ALBUMIN 3.2 g/dL (3.5-5.0); ALBUMIN/GLOBULIN RATIO 0.9 (0.8-2.0); ANION GAP 14.4 mmol/L (8-16); CALCIUM 9.3 mg/dL (8.4-10.2); CREATININE, SERUM 0.5 mg/dL (0.57-1.11); POTASSIUM 3.4 mmol/L (3.5-5.1)
[2021-06-23] MEDS: INSULIN GLARGINE 100 UNITS/ML VIAL SQ SCH (21:00)
[2021-06-24] VITALS (25 sets, daily range): BP systolic 129–151; BP diastolic 71–100
[2021-06-24] MEDS: METOCLOPRAMIDE HCL 10 MG/2ML VIAL IV SCH ×5 (06:00→23:51)
[2021-06-24] MEDS: INSULIN REGULAR, HUMAN 100 UNIT/1 ML SQ SCH ×4 (06:00→17:43)
[2021-06-24] MEDS: CEFEPIME 1 GM in SODIUM CHLORIDE 0.9% 50ML 50 ML IV SCH ×2 (09:52→21:05)
[2021-06-24] MEDS: Vancomycin IV 1 GM in SODIUM CHLORIDE 0.9% 250ML 250 ML IV SCH ×2 (09:52→21:39)
[2021-06-24] MEDS: COLLAGENASE 5 GM TUBE TOP SCH (09:52)
[2021-06-24] MEDS: CHOLECALCIFEROL 400 UNIT TAB PO SCH (09:52)
[2021-06-24] MEDS: FUROSEMIDE INJ 10 MG/ML 4 ML VIAL IV SCH (09:52)
[2021-06-24] MEDS: FAMOTIDINE 20 MG/2 ML VIAL IV SCH ×2 (09:52→16:46)
[2021-06-24] MEDS: ENOXAPARIN INJ 80 MG/0.8 ML SYR SC SCH ×2 (09:52→21:05)
[2021-06-24] MEDS: ASCORBIC ACID 500 MG TAB NG SCH ×2 (09:52→16:46)
[2021-06-24] MEDS: ZINC SULFATE 220 MG CAP PO SCH (09:52)
[2021-06-24] MEDS: BALSAM PERU/CASTOR OIL 60 GM OINT...G. TP SCH (09:52)
[2021-06-24 12:56] LABS: ALBUMIN 3.3 g/dL (3.5-5.0); ANION GAP 12.2 mmol/L (8-16); CALCIUM 8.8 mg/dL (8.4-10.2); CREATININE, SERUM 0.49 mg/dL (0.57-1.11); POTASSIUM 3.2 mmol/L (3.5-5.1)
[2021-06-24] MEDS: POTASSIUM CHLORIDE 20MEQ/100ML 100 ML IV PRN ×2 (14:21→17:59)
[2021-06-24] MEDS: ACETAMINOPHEN 325 MG TAB NG PRN (21:05)
[2021-06-25] VITALS (27 sets, daily range): BP systolic 109–144; BP diastolic 64–95
[2021-06-25] MEDS: INSULIN REGULAR, HUMAN 100 UNIT/1 ML SQ SCH ×4 (06:00→18:31)
[2021-06-25 06:08] LABS: BASOPHILS # (AUTO) 0.1 (0.0-0.1); EOSINOPHILS # (AUTO) 0.3 (0.0-0.4); EOSINOPHILS % 3.3 % (0.0-6.0); HEMATOCRIT 28.5 % (34.2-44.1); HEMOGLOBIN 8.4 g/dL (12.0-16.0); LYMPHOCYTES # (AUTO) 1.1 (1.0-3.2); MEAN CORPUSCULAR HEMOGLOBIN 26.6 pg (28-32); MEAN CORPUSCULAR HGB CONC 29.5 g/dL (31-35); MEAN CORPUSCULAR VOLUME 90.2 fL (81-99); MONOCYTES # (AUTO) 0.7 (0.2-0.8); MONOCYTES % 8.6 % (4.4-11.3); NEUTROPHILS % 73.6 % (38.7-80.0); PLATELET COUNT 539 x10e3/uL (140-360); RED BLOOD COUNT 3.16 x10e6/uL (3.6-5.1); RED CELL DISTRIBUTION WIDTH 15.9 % (11.7-14.4)
[2021-06-25 06:26] LABS: ALBUMIN 3.1 g/dL (3.5-5.0); ALBUMIN/GLOBULIN RATIO 0.9 (0.8-2.0); ANION GAP 14.6 mmol/L (8-16); CALCIUM 8.7 mg/dL (8.4-10.2); CREATININE, SERUM 0.48 mg/dL (0.57-1.11); POTASSIUM 3.6 mmol/L (3.5-5.1)
[2021-06-25] MEDS: METOCLOPRAMIDE HCL 10 MG/2ML VIAL IV SCH ×3 (06:37→17:35)
[2021-06-25] MEDS: FUROSEMIDE INJ 10 MG/ML 4 ML VIAL IV SCH (09:34)
[2021-06-25] MEDS: CHOLECALCIFEROL 400 UNIT TAB PO SCH (09:34)
[2021-06-25] MEDS: COLLAGENASE 5 GM TUBE TOP SCH (09:34)
[2021-06-25] MEDS: ASCORBIC ACID 500 MG TAB NG SCH ×2 (09:34→17:35)
[2021-06-25] MEDS: CEFEPIME 1 GM in SODIUM CHLORIDE 0.9% 50ML 50 ML IV SCH ×2 (09:34→21:35)
[2021-06-25] MEDS: ZINC SULFATE 220 MG CAP PO SCH (09:34)
[2021-06-25] MEDS: FAMOTIDINE 20 MG/2 ML VIAL IV SCH ×2 (09:34→17:35)
[2021-06-25] MEDS: BALSAM PERU/CASTOR OIL 60 GM OINT...G. TP SCH (09:34)
[2021-06-25] MEDS: ENOXAPARIN INJ 80 MG/0.8 ML SYR SC SCH ×2 (09:34→21:35)
[2021-06-25] MEDS: Vancomycin IV 1 GM in SODIUM CHLORIDE 0.9% 250ML 250 ML IV SCH ×2 (09:35→21:35)
[2021-06-25] MEDS: POTASSIUM CHLORIDE 20MEQ/100ML 100 ML IV PRN ×2 (14:19→18:13)
[2021-06-26] VITALS (25 sets, daily range): BP systolic 108–147; BP diastolic 50–107
[2021-06-26] MEDS: METOCLOPRAMIDE HCL 10 MG/2ML VIAL IV SCH ×4 (01:34→19:09)
[2021-06-26] MEDS: INSULIN REGULAR, HUMAN 100 UNIT/1 ML SQ SCH ×4 (06:00→19:14)
[2021-06-26] MEDS: COLLAGENASE 5 GM TUBE TOP SCH (09:00)
[2021-06-26] MEDS: FAMOTIDINE 20 MG/2 ML VIAL IV SCH ×2 (09:30→16:56)
[2021-06-26] MEDS: CHOLECALCIFEROL 400 UNIT TAB PO SCH (09:30)
[2021-06-26] MEDS: ZINC SULFATE 220 MG CAP PO SCH (09:30)
[2021-06-26] MEDS: ENOXAPARIN INJ 80 MG/0.8 ML SYR SC SCH ×2 (09:30→21:06)
[2021-06-26] MEDS: FUROSEMIDE INJ 10 MG/ML 4 ML VIAL IV SCH (09:30)
[2021-06-26] MEDS: ASCORBIC ACID 500 MG TAB NG SCH ×2 (09:30→16:56)
[2021-06-26] MEDS: CEFEPIME 1 GM in SODIUM CHLORIDE 0.9% 50ML 50 ML IV SCH ×2 (10:20→21:00)
[2021-06-26] MEDS: Vancomycin IV 1 GM in SODIUM CHLORIDE 0.9% 250ML 250 ML IV SCH ×2 (10:58→23:30)
[2021-06-26] MEDS: BALSAM PERU/CASTOR OIL 60 GM OINT...G. TP SCH (13:49)
[2021-06-26] MEDS: ACETAMINOPHEN 325 MG TAB NG PRN (16:57)
[2021-06-26] MEDS ORDERED: ALTEPLASE RECOMBINANT 2 MG/2 ML VIAL IV PRN (22:15)
[2021-06-27] VITALS (25 sets, daily range): BP systolic 100–147; BP diastolic 51–97
[2021-06-27] MEDS: METOCLOPRAMIDE HCL 10 MG/2ML VIAL IV SCH ×4 (01:00→17:33)
[2021-06-27 05:48] LABS: BASOPHILS # (AUTO) 0.1 (0.0-0.1); BASOPHILS % 0.7 % (0.0-1.0); EOSINOPHILS # (AUTO) 1.2 (0.0-0.4); EOSINOPHILS % 10.7 % (0.0-6.0); HEMATOCRIT 30.4 % (34.2-44.1); LYMPHOCYTES % 9.4 % (18.0-39.1); MEAN CORPUSCULAR HEMOGLOBIN 26.6 pg (28-32); MEAN CORPUSCULAR HGB CONC 29.6 g/dL (31-35); MEAN CORPUSCULAR VOLUME 89.9 fL (81-99); MONOCYTES # (AUTO) 0.8 (0.2-0.8); MONOCYTES % 7.2 % (4.4-11.3); NEUTROPHILS # (AUTO) 7.8 (2.1-6.9); NEUTROPHILS % 71.3 % (38.7-80.0); PLATELET COUNT 528 x10e3/uL (140-360); RED BLOOD COUNT 3.38 x10e6/uL (3.6-5.1); RED CELL DISTRIBUTION WIDTH 16.4 % (11.7-14.4)
[2021-06-27] MEDS: INSULIN REGULAR, HUMAN 100 UNIT/1 ML SQ SCH ×4 (06:00→17:35)
[2021-06-27 06:45] LABS: ALBUMIN 3.4 g/dL (3.5-5.0); CALCIUM 9.3 mg/dL (8.4-10.2); CREATININE, SERUM 0.47 mg/dL (0.57-1.11)
[2021-06-27] MEDS: ENOXAPARIN INJ 80 MG/0.8 ML SYR SC SCH ×2 (09:14→21:37)
[2021-06-27] MEDS: ZINC SULFATE 220 MG CAP PO SCH (09:14)
[2021-06-27] MEDS: CEFEPIME 1 GM in SODIUM CHLORIDE 0.9% 50ML 50 ML IV SCH (09:14)
[2021-06-27] MEDS: CHOLECALCIFEROL 400 UNIT TAB PO SCH (09:14)
[2021-06-27] MEDS: COLLAGENASE 5 GM TUBE TOP SCH (09:14)
[2021-06-27] MEDS: BALSAM PERU/CASTOR OIL 60 GM OINT...G. TP SCH (09:14)
[2021-06-27] MEDS: ASCORBIC ACID 500 MG TAB NG SCH ×2 (09:14→17:33)
[2021-06-27] MEDS: FAMOTIDINE 20 MG/2 ML VIAL IV SCH ×2 (09:14→17:33)
[2021-06-27] MEDS: FUROSEMIDE INJ 10 MG/ML 4 ML VIAL IV SCH (09:15)
[2021-06-27] MEDS: Vancomycin IV 1 GM in SODIUM CHLORIDE 0.9% 250ML 250 ML IV SCH ×2 (09:30→11:59)
[2021-06-27] MEDS: ACETAMINOPHEN 325 MG TAB NG PRN (11:04)
[2021-06-28] VITALS (25 sets, daily range): BP systolic 111–143; BP diastolic 49–74
[2021-06-28] MEDS: METOCLOPRAMIDE HCL 10 MG/2ML VIAL IV SCH ×4 (00:26→17:05)
[2021-06-28 06:03] LABS: BASOPHILS # (AUTO) 0.1 (0.0-0.1); BASOPHILS % 0.8 % (0.0-1.0); EOSINOPHILS # (AUTO) 0.5 (0.0-0.4); EOSINOPHILS % 5.4 % (0.0-6.0); HEMATOCRIT 31.4 % (34.2-44.1); HEMOGLOBIN 9.3 g/dL (12.0-16.0); LYMPHOCYTES # (AUTO) 1.3 (1.0-3.2); LYMPHOCYTES % 14.7 % (18.0-39.1); MEAN CORPUSCULAR HEMOGLOBIN 26.7 pg (28-32); MEAN CORPUSCULAR HGB CONC 29.6 g/dL (31-35); MEAN CORPUSCULAR VOLUME 90.2 fL (81-99); MONOCYTES # (AUTO) 0.7 (0.2-0.8); MONOCYTES % 7.9 % (4.4-11.3); NEUTROPHILS # (AUTO) 6.4 (2.1-6.9); NEUTROPHILS % 70.8 % (38.7-80.0); PLATELET COUNT 551 x10e3/uL (140-360); RED BLOOD COUNT 3.48 x10e6/uL (3.6-5.1); RED CELL DISTRIBUTION WIDTH 16.8 % (11.7-14.4)
[2021-06-28] MEDS: INSULIN REGULAR, HUMAN 100 UNIT/1 ML SQ SCH ×4 (06:17→17:06)
[2021-06-28 06:32] LABS: ALBUMIN 3.5 g/dL (3.5-5.0); ANION GAP 14.1 mmol/L (8-16); BILIRUBIN,DIRECT 0.2 mg/dL (0.0-0.5); CALCIUM 9.3 mg/dL (8.4-10.2); CREATININE, SERUM 0.51 mg/dL (0.57-1.11); POTASSIUM 4.1 mmol/L (3.5-5.1)
[2021-06-28] MEDS: FAMOTIDINE 20 MG/2 ML VIAL IV SCH ×2 (08:03→17:05)
[2021-06-28] MEDS: COLLAGENASE 5 GM TUBE TOP SCH (08:03)
[2021-06-28] MEDS: ENOXAPARIN INJ 80 MG/0.8 ML SYR SC SCH ×2 (08:03→21:00)
[2021-06-28] MEDS: CHOLECALCIFEROL 400 UNIT TAB PO SCH (08:03)
[2021-06-28] MEDS: ASCORBIC ACID 500 MG TAB NG SCH ×2 (08:03→17:05)
[2021-06-28] MEDS: BALSAM PERU/CASTOR OIL 60 GM OINT...G. TP SCH (08:03)
[2021-06-28] MEDS: ZINC SULFATE 220 MG CAP PO SCH (08:03)
[2021-06-28] MEDS: FUROSEMIDE INJ 10 MG/ML 4 ML VIAL IV SCH (08:03)
[2021-06-28] MEDS: ACETAMINOPHEN 325 MG TAB NG PRN (19:59)
[2021-06-29] VITALS (25 sets, daily range): BP systolic 121–149; BP diastolic 61–95
[2021-06-29] MEDS: METOCLOPRAMIDE HCL 10 MG/2ML VIAL IV SCH ×5 (00:26→23:39)
[2021-06-29] MEDS: INSULIN REGULAR, HUMAN 100 UNIT/1 ML SQ SCH ×5 (00:30→23:55)
[2021-06-29] MEDS ORDERED: ALBUMIN 25% 25GM 100ML 0.25 GM/ML BTL IV ONE (02:30)
[2021-06-29 05:54] LABS: BASOPHILS # (AUTO) 0.1 (0.0-0.1); EOSINOPHILS # (AUTO) 0.4 (0.0-0.4); EOSINOPHILS % 5.1 % (0.0-6.0); HEMATOCRIT 29.6 % (34.2-44.1); LYMPHOCYTES # (AUTO) 1.2 (1.0-3.2); LYMPHOCYTES % 16.8 % (18.0-39.1); MEAN CORPUSCULAR HEMOGLOBIN 27.2 pg (28-32); MEAN CORPUSCULAR HGB CONC 30.4 g/dL (31-35); MEAN CORPUSCULAR VOLUME 89.4 fL (81-99); MONOCYTES # (AUTO) 0.6 (0.2-0.8); MONOCYTES % 8.2 % (4.4-11.3); NEUTROPHILS % 68.4 % (38.7-80.0); PLATELET COUNT 506 x10e3/uL (140-360); RED BLOOD COUNT 3.31 x10e6/uL (3.6-5.1); RED CELL DISTRIBUTION WIDTH 16.7 % (11.7-14.4)
[2021-06-29 05:59] LABS: ANION GAP 13.9 mmol/L (8-16); CALCIUM 9.3 mg/dL (8.4-10.2); CREATININE, SERUM 0.5 mg/dL (0.57-1.11); POTASSIUM 3.9 mmol/L (3.5-5.1)
[2021-06-29] MEDS: ASCORBIC ACID 500 MG TAB NG SCH ×2 (08:07→17:26)
[2021-06-29] MEDS: CHOLECALCIFEROL 400 UNIT TAB PO SCH (08:07)
[2021-06-29] MEDS: ZINC SULFATE 220 MG CAP PO SCH (08:07)
[2021-06-29] MEDS: ENOXAPARIN INJ 80 MG/0.8 ML SYR SC SCH ×2 (08:07→21:00)
[2021-06-29] MEDS: COLLAGENASE 5 GM TUBE TOP SCH (08:07)
[2021-06-29] MEDS: FAMOTIDINE 20 MG/2 ML VIAL IV SCH ×2 (08:07→17:25)
[2021-06-29] MEDS: BALSAM PERU/CASTOR OIL 60 GM OINT...G. TP SCH (08:07)
[2021-06-30] VITALS (26 sets, daily range): BP systolic 119–142; BP diastolic 54–89
[2021-06-30] MEDS: METOCLOPRAMIDE HCL 10 MG/2ML VIAL IV SCH ×3 (05:47→17:19)
[2021-06-30] MEDS: INSULIN REGULAR, HUMAN 100 UNIT/1 ML SQ SCH ×3 (05:47→17:19)
[2021-06-30 05:56] LABS: BASOPHILS # (AUTO) 0.1 (0.0-0.1); EOSINOPHILS # (AUTO) 0.4 (0.0-0.4); EOSINOPHILS % 5.6 % (0.0-6.0); HEMATOCRIT 30.7 % (34.2-44.1); HEMOGLOBIN 9.2 g/dL (12.0-16.0); LYMPHOCYTES # (AUTO) 1.2 (1.0-3.2); LYMPHOCYTES % 17.7 % (18.0-39.1); MEAN CORPUSCULAR HEMOGLOBIN 26.9 pg (28-32); MEAN CORPUSCULAR VOLUME 89.8 fL (81-99); MONOCYTES # (AUTO) 0.7 (0.2-0.8); MONOCYTES % 9.6 % (4.4-11.3); NEUTROPHILS # (AUTO) 4.6 (2.1-6.9); NEUTROPHILS % 65.7 % (38.7-80.0); PLATELET COUNT 499 x10e3/uL (140-360); RED BLOOD COUNT 3.42 x10e6/uL (3.6-5.1); RED CELL DISTRIBUTION WIDTH 16.5 % (11.7-14.4)
[2021-06-30 06:23] LABS: ALBUMIN 3.8 g/dL (3.5-5.0); ALBUMIN/GLOBULIN RATIO 1.1 (0.8-2.0); ANION GAP 14.1 mmol/L (8-16); CALCIUM 9.7 mg/dL (8.4-10.2); CREATININE, SERUM 0.51 mg/dL (0.57-1.11); POTASSIUM 4.1 mmol/L (3.5-5.1)
[2021-06-30] MEDS: FAMOTIDINE 20 MG/2 ML VIAL IV SCH ×2 (08:57→17:19)
[2021-06-30] MEDS: COLLAGENASE 5 GM TUBE TOP SCH (08:57)
[2021-06-30] MEDS: CHOLECALCIFEROL 400 UNIT TAB PO SCH (08:57)
[2021-06-30] MEDS: ASCORBIC ACID 500 MG TAB NG SCH ×2 (08:57→17:19)
[2021-06-30] MEDS: ZINC SULFATE 220 MG CAP PO SCH (08:57)
[2021-06-30] MEDS: ENOXAPARIN INJ 80 MG/0.8 ML SYR SC SCH (08:57)
[2021-06-30] MEDS: ACETAMINOPHEN 325 MG TAB NG PRN (08:57)
[2021-06-30] MEDS ORDERED: ENOXAPARIN INJ 80 MG/0.8 ML SYR SC STA (22:18)
[2021-07-01] VITALS (25 sets, daily range): BP systolic 118–138; BP diastolic 54–81
[2021-07-01] MEDS: INSULIN REGULAR, HUMAN 100 UNIT/1 ML SQ SCH ×4 (00:02→17:58)
[2021-07-01] MEDS: METOCLOPRAMIDE HCL 10 MG/2ML VIAL IV SCH ×4 (00:32→17:26)
[2021-07-01 06:10] LABS: BASOPHILS # (AUTO) 0.1 (0.0-0.1); BASOPHILS % 1.4 % (0.0-1.0); EOSINOPHILS # (AUTO) 0.4 (0.0-0.4); EOSINOPHILS % 5.5 % (0.0-6.0); HEMATOCRIT 32.3 % (34.2-44.1); HEMOGLOBIN 9.7 g/dL (12.0-16.0); LYMPHOCYTES # (AUTO) 1.6 (1.0-3.2); LYMPHOCYTES % 21.8 % (18.0-39.1); MONOCYTES # (AUTO) 0.7 (0.2-0.8); NEUTROPHILS # (AUTO) 4.5 (2.1-6.9); NEUTROPHILS % 61.8 % (38.7-80.0); PLATELET COUNT 497 x10e3/uL (140-360); RED BLOOD COUNT 3.59 x10e6/uL (3.6-5.1); RED CELL DISTRIBUTION WIDTH 16.1 % (11.7-14.4)
[2021-07-01 06:44] LABS: ALBUMIN/GLOBULIN RATIO 1.1 (0.8-2.0); ANION GAP 13.2 mmol/L (8-16); CALCIUM 9.8 mg/dL (8.4-10.2); CREATININE, SERUM 0.54 mg/dL (0.57-1.11); POTASSIUM 4.2 mmol/L (3.5-5.1)
[2021-07-01] MEDS: CHOLECALCIFEROL 400 UNIT TAB PO SCH (09:50)
[2021-07-01] MEDS: ENOXAPARIN INJ 80 MG/0.8 ML SYR SC SCH ×2 (09:50→22:00)
[2021-07-01] MEDS: COLLAGENASE 5 GM TUBE TOP SCH (09:50)
[2021-07-01] MEDS: FAMOTIDINE 20 MG/2 ML VIAL IV SCH ×2 (09:50→17:26)
[2021-07-01] MEDS: ASCORBIC ACID 500 MG TAB NG SCH ×2 (09:50→17:26)
[2021-07-01] MEDS: ZINC SULFATE 220 MG CAP PO SCH (09:50)
[2021-07-01] MEDS ORDERED: LIDOCAINE HCL 5% OINMENT 35.44 GM TUBE TP ONE (15:00)
[2021-07-01] MEDS ORDERED: LIDOCAINE HCL 2% JELLY 5 ML TUBE TOP ONE (15:30)
[2021-07-02] VITALS (23 sets, daily range): BP systolic 87–133; BP diastolic 51–91
[2021-07-02] MEDS: INSULIN REGULAR, HUMAN 100 UNIT/1 ML SQ SCH ×4 (00:30→17:58)
[2021-07-02] MEDS: METOCLOPRAMIDE HCL 10 MG/2ML VIAL IV SCH ×5 (00:47→23:59)
[2021-07-02] MEDS: COLLAGENASE 5 GM TUBE TOP SCH (09:39)
[2021-07-02] MEDS: ASCORBIC ACID 500 MG TAB NG SCH ×2 (09:39→17:58)
[2021-07-02] MEDS: ENOXAPARIN INJ 80 MG/0.8 ML SYR SC SCH ×2 (09:39→21:37)
[2021-07-02] MEDS: ZINC SULFATE 220 MG CAP PO SCH (09:39)
[2021-07-02] MEDS: FAMOTIDINE 20 MG/2 ML VIAL IV SCH ×2 (09:39→17:58)
[2021-07-02] MEDS: CHOLECALCIFEROL 400 UNIT TAB PO SCH (09:39)
[2021-07-03] VITALS (22 sets, daily range): BP systolic 106–141; BP diastolic 42–78
[2021-07-03] MEDS: INSULIN REGULAR, HUMAN 100 UNIT/1 ML SQ SCH ×4 (00:47→17:40)
[2021-07-03 06:18] LABS: BASOPHILS # (AUTO) 0.1 (0.0-0.1); BASOPHILS % 0.9 % (0.0-1.0); EOSINOPHILS # (AUTO) 0.3 (0.0-0.4); EOSINOPHILS % 4.3 % (0.0-6.0); HEMATOCRIT 33.5 % (34.2-44.1); HEMOGLOBIN 10.1 g/dL (12.0-16.0); LYMPHOCYTES # (AUTO) 1.6 (1.0-3.2); LYMPHOCYTES % 19.6 % (18.0-39.1); MEAN CORPUSCULAR HGB CONC 30.1 g/dL (31-35); MEAN CORPUSCULAR VOLUME 89.6 fL (81-99); MONOCYTES # (AUTO) 0.9 (0.2-0.8); MONOCYTES % 11.2 % (4.4-11.3); NEUTROPHILS % 63.4 % (38.7-80.0); PLATELET COUNT 516 x10e3/uL (140-360); RED BLOOD COUNT 3.74 x10e6/uL (3.6-5.1); RED CELL DISTRIBUTION WIDTH 16.7 % (11.7-14.4)
[2021-07-03] MEDS: METOCLOPRAMIDE HCL 10 MG/2ML VIAL IV SCH ×3 (06:41→17:49)
[2021-07-03 07:03] LABS: ALBUMIN 4.1 g/dL (3.5-5.0); ALBUMIN/GLOBULIN RATIO 1.1 (0.8-2.0); ANION GAP 15.1 mmol/L (8-16); CALCIUM 10.3 mg/dL (8.4-10.2); CREATININE, SERUM 0.6 mg/dL (0.57-1.11); POTASSIUM 4.1 mmol/L (3.5-5.1)
[2021-07-03] MEDS: ASCORBIC ACID 500 MG TAB NG SCH ×2 (09:26→17:49)
[2021-07-03] MEDS: ZINC SULFATE 220 MG CAP PO SCH (09:26)
[2021-07-03] MEDS: CHOLECALCIFEROL 400 UNIT TAB PO SCH (09:26)
[2021-07-03] MEDS: ENOXAPARIN INJ 80 MG/0.8 ML SYR SC SCH ×2 (09:26→22:00)
[2021-07-03] MEDS: FAMOTIDINE 20 MG/2 ML VIAL IV SCH ×2 (09:26→17:49)
[2021-07-03] MEDS: COLLAGENASE 5 GM TUBE TOP SCH (09:26)
[2021-07-04] VITALS (7 sets, daily range): BP systolic 109–124; BP diastolic 54–66
[2021-07-04] MEDS: INSULIN REGULAR, HUMAN 100 UNIT/1 ML SQ SCH ×4 (00:10→18:18)
[2021-07-04] MEDS: METOCLOPRAMIDE HCL 10 MG/2ML VIAL IV SCH ×4 (00:11→17:52)
[2021-07-04] MEDS: FAMOTIDINE 20 MG/2 ML VIAL IV SCH ×2 (09:39→17:52)
[2021-07-04] MEDS: CHOLECALCIFEROL 400 UNIT TAB PO SCH (09:39)
[2021-07-04] MEDS: ZINC SULFATE 220 MG CAP PO SCH (09:39)
[2021-07-04] MEDS: ENOXAPARIN INJ 80 MG/0.8 ML SYR SC SCH ×2 (09:39→22:54)
[2021-07-04] MEDS: ASCORBIC ACID 500 MG TAB NG SCH ×2 (09:39→17:52)
[2021-07-04] MEDS: COLLAGENASE 5 GM TUBE TOP SCH (09:39)
[2021-07-05 00:59] VITALS: BP 127/74
[2021-07-05] MEDS: METOCLOPRAMIDE HCL 10 MG/2ML VIAL IV SCH ×4 (01:36→17:50)
[2021-07-05 04:25] VITALS: BP 116/68
[2021-07-05] MEDS: INSULIN REGULAR, HUMAN 100 UNIT/1 ML SQ SCH ×4 (05:56→17:57)
[2021-07-05 08:24] VITALS: BP 127/71
[2021-07-05 08:29] VITALS: BP 127/71
[2021-07-05] MEDS: FAMOTIDINE 20 MG/2 ML VIAL IV SCH ×2 (09:58→17:50)
[2021-07-05] MEDS: COLLAGENASE 5 GM TUBE TOP SCH (09:58)
[2021-07-05] MEDS: CHOLECALCIFEROL 400 UNIT TAB PO SCH (09:58)
[2021-07-05] MEDS: ASCORBIC ACID 500 MG TAB NG SCH ×2 (09:58→17:50)
[2021-07-05] MEDS: ENOXAPARIN INJ 80 MG/0.8 ML SYR SC SCH (09:58)
[2021-07-05] MEDS: ZINC SULFATE 220 MG CAP PO SCH (09:58)
[2021-07-05 12:24] VITALS: BP 123/60
[2021-07-05 16:21] VITALS: BP 125/76
[2021-07-05] MEDS ORDERED: LOVENOX80 MG/0.8 SC (16:44)
[2021-07-05] MEDS ORDERED: Cholecalciferol PO (16:44)
[2021-07-05] MEDS ORDERED: ACETAMINOPHEN325 M1 NG (16:44)
[2021-07-05] MEDS ORDERED: HUMULIN R100 UNIT/2 SQ (16:44)
[2021-07-05] MEDS ORDERED: FAMOTIDINE20 MG/2 ML IV (16:44)
[2021-07-05] MEDS ORDERED: METOCLOPRAMID5 MG/ML IV (16:44)
[2021-07-05] MEDS ORDERED: ZINC SULFATE50 MG PO (16:44)
[2021-07-05] MEDS ORDERED: Collagenase TOP (16:44)
[2021-07-05] MEDS ORDERED: ASCORBIC ACID500 MG NG (16:44)
[2021-07-05] MEDS ORDERED: DEXTROSE 50%-WA50 M1 IV (16:44)
== END 2021-07-05 19:54 | DRG 4 ==
LOC: ER 15:40 → ERHOLD 17:23 → ICU 18:22 → IMCU 07-04 10:31
PROVIDERS: ADMIT Internal Medicine; ATTEND Internal Medicine
PROC: 0BH17EZ Insertion of Endotracheal Airway into Trachea, Via Natural or Artificial Opening (ICD-10-PCS; principal; 2021-05-06)
PROC: 5A1955Z Respiratory Ventilation, Greater than 96 Consecutive Hours (ICD-10-PCS; 2021-05-06)
PROC: 02HV33Z Insertion of Infusion Device into Superior Vena Cava, Percutaneous Approach (ICD-10-PCS; 2021-05-06)
PROC: B548ZZA Ultrasonography of Superior Vena Cava, Guidance (ICD-10-PCS; 2021-05-06)
PROC: XW043E5 Introduction of Remdesivir Anti-infective into Central Vein, Percutaneous Approach, New Technology Group 5 (ICD-10-PCS; 2021-05-06)
PROC: 3E0433Z Introduction of Anti-inflammatory into Central Vein, Percutaneous Approach (ICD-10-PCS; 2021-05-06)
PROC: 03HY32Z Insertion of Monitoring Device into Upper Artery, Percutaneous Approach (ICD-10-PCS; 2021-05-07)
PROC: 02HV33Z Insertion of Infusion Device into Superior Vena Cava, Percutaneous Approach (ICD-10-PCS; 2021-05-16)
PROC: B548ZZA Ultrasonography of Superior Vena Cava, Guidance (ICD-10-PCS; 2021-05-16)
PROC: 02PYX3Z Removal of Infusion Device from Great Vessel, External Approach (ICD-10-PCS; 2021-05-16)
PROC: 02HV33Z Insertion of Infusion Device into Superior Vena Cava, Percutaneous Approach (ICD-10-PCS; 2021-06-06)
PROC: 30243N1 Transfusion of Nonautologous Red Blood Cells into Central Vein, Percutaneous Approach (ICD-10-PCS; 2021-06-10)
PROC: 0B110F4 Bypass Trachea to Cutaneous with Tracheostomy Device, Open Approach (ICD-10-PCS; 2021-06-15)
PROC: 0DH63UZ Insertion of Feeding Device into Stomach, Percutaneous Approach (ICD-10-PCS; 2021-06-15)
DX: U07.1 COVID-19 (principal); J12.82 Pneumonia due to coronavirus disease 2019; J80 Acute respiratory distress syndrome; J15.9 Unspecified bacterial pneumonia; A41.9 Sepsis, unspecified organism; J69.0 Pneumonitis due to inhalation of food and vomit; N17.9 Acute kidney failure, unspecified; E87.2 Acidosis; E87.0 Hyperosmolality and hypernatremia; J81.1 Chronic pulmonary edema; E44.0 Moderate protein-calorie malnutrition; G93.1 Anoxic brain damage, not elsewhere classified; L40.9 Psoriasis, unspecified; E66.01 Morbid (severe) obesity due to excess calories; Z68.32 Body mass index [BMI] 32.0-32.9, adult; E11.65 Type 2 diabetes mellitus with hyperglycemia; D50.0 Iron deficiency anemia secondary to blood loss (chronic); E88.09 Other disorders of plasma-protein metabolism, not elsewhere classified; R53.81 Other malaise; R13.10 Dysphagia, unspecified; D47.3 Essential (hemorrhagic) thrombocythemia
CPT/HCPCS: 36415; 36555; 36569; 36600; 70450; 71045; 71260; 74018; 74177; 76604; 80048; 80053; 80202; 81001; 82248; 82550; 82553; 82728; 82805; 82948; 83036; 83735; 84100; 84478; 84484; 85025; 85379; 85610; 85651; 85730; 86140; 86850; 86900; 86920; 87040; 87070; 87086; 87205; 93005; 93306; 93970; 94002; 94003; 96365; 96372; 97139; 99251; 99284; J0330; J0456; J0692; J0696; J1100; J1200; J1450; J1650; J1815; J1817; J1940; J2001; J2248; J2250; J2543; J2765; J2997; J3370; J3480; J7030; J7040; J7050; P9016; P9047; Q9967; U0002